=== PATIENT | female | born 1975 | race African-American/Black ===

== ENCOUNTER 2019-04-19 08:43 | Emergency (ER) | payer OTHER, SELFPAY ==
--- NOTE | ~2019-04-19 | CT_ITS ---
EXAMINATION: CT abdomen pelvis w con EXAM DATE: 04/19/2019 10:41 INDICATION: Fever. Epigastric pain. History gastric bypass. TECHNIQUE: Spiral CT of the abdomen and pelvis was performed following intravenous injection of 100 m L Omnipaque 350. Axial, coronal and sagittal images were reviewed. The dose-length product (DLP) fo r this examination was 1536.16 mGy-cm. The exposure was tailored according to patient size (auto mA exposure control), and iterative reconstruction (ASIR) was used as additional dose reduction techniqu e. Comparison is made to prior examination from 10/30/2017. FINDINGS: The liver, spleen, adrenal glands and pancreas are unremarkable. Gallbladder is unremarkab le. No biliary obstruction. Portal and splenic veins are patent. Kidneys enhance symmetrically. T here is no hydronephrosis. There is 4 mm left mid calyceal stone. No ureteral stones suspected. The uterus and ovaries are unremarkable, no adnexal mass. The bladder is unremarkable. There is no retr operitoneal or pelvic lymphadenopathy. Small supraumbilical fat-containing hernia. There are surgical changes consistent with appendectomy. There are surgical changes from intact gas tric bypass surgery. There is mild to moderate sigmoid predominant colonic diverticulosis. There is no adjacent inflammatory change to suggest diverticulitis. No free intraperitoneal gas. The heart is normal in size. There are no pericardial or pleural effusions. The lung bases are unremarkable. There are no osteoblastic or osteolytic lesions identified. IMPRESSION: 1. No acute intra-abdominal findings. 2. Colonic diverticulosis. 3. Small supra umbilical hernia. 4. Left nephrolithiasis. Reviewed, dictated and finalized at location A. [facility]
--- NOTE | ~2019-04-19 | XR_ITS ---
EXAMINATION: XR chest 2V DATE: 04/19/2019 09:02 INDICATION: Cough. Fever. TECHNIQUE: Frontal and lateral views of the chest were obtained. COMPARISON: CT abdomen and pelvis 10/30/2017 FINDINGS: The chest demonstrates clear lungs without pneumonia, pleural effusion, or pneumothorax. Th e heart size is normal. IMPRESSION: 1. No acute cardiopulmonary disease. Reviewed, dictated and finalized at location A. [facility]
[2019-04-19 08:51] VITALS: BP 148/108; PULSE 105; RESP 20; TEMP 37.1; O2SAT 100
--- NOTE | 2019-04-19 08:55 | ED.FEVER ---
HPI - Fever General Chief Complaint: Fever Stated Complaint: headache/stomach pains/achey/fever Time Seen by Provider: 04/19/19 08:53 Source: patient Mode of arrival: ambulatory Limitations: no limitations History of Present Illness HPI Narrative: Pt is a 43 y/o female who presents to the ED with c/o a fever of 101F that started Monday night (2 days ago). Pt reports assocaited [place], sore throat, chills, ABD pain, cough with green phlegm, and nausea. She denies vomiting. Pt took Tylenol at 0715AM. She is not a smoker. MD elicited complaint: fever Onset (ago): day(s) (2) Associated symptoms: chills, sore throat, cough, abdominal pain, nausea and other (sore throat) Treatments prior to arrival fever: acetaminophen Related Data Allergies Allergy/AdvReac Type Severity Reaction Status Date / Time morphine Allergy Unknown Verified 12/15/16 14:40 Review of Systems Review of Systems: All systems reviewed & are unremarkable except as noted in HPI and below Constitutional: Constitutional: Reports chills and Reports fever(s) (101F) ENT: Reports sore throat Respiratory: Respiratory: Reports cough Gastrointestinal: Gastrointestinal: Reports abdominal pain, Reports nausea and Denies vomiting Neurologic: Reports headache(s) [facility] Past Medical History Medical History (Updated 04/19/19 @ 12:51 by Marcial Smith DO) Anemia Asthma Surgical History Surgical History (Updated 04/19/19 @ 10:18 by Basia Sorensen) H/O section H/O gastric bypass Hx of cholecystectomy Family History Family History (Updated 12/15/16 @ 14:42 by DOCTOR UNKNOWN) Father Diabetes mellitus Hypertension Mother Hypertension Family history of elevated blood lipids Other Family history of chronic obstructive pulmonary disease Social History Social History Smoking status: Never smoker Alcohol intake: current Gender identity (if verbalized by the patient): Female Exam Narrative: Exam Narrative: APPEARANCE: No acute distress, nontoxic, resting in bed EYES: EOMI HEENT: Normocephalic, atraumatic, oromucosa dry, no erythema or exudate posterior pharynx RESPIRATORY: No respiratory distress Clear to auscultation bilaterally with no rhonchi wheezing or rales. CARDIOVASCULAR: Regular rate and rhythm without murmurs rubs or gallops. ABDOMINAL: Soft, nontender, nondistended, no rebound or guarding MUSCULOSKELETAl: Moves all extremities. No clubbing, cyanosis or edema. NEURO: Awake and alert. Following commands, speech normal, no focal deficits SKIN:: Warm, dry. No rashes lesions or abrasions PSYCHIATRIC: Normal affect/mood, Course [employer]/PA Physician Supervision Renal records including previous hemoglobin of 7.9 in October 2016. Patient states she is followed by Dr. Fregoso but missed her last appointment. : Discussed with Dr. Fregoso presentation work-up. Patient is known to him from previous anemia. Request patient follow-up as an outpatient Discussed with patient results of workup and diagnosis. Discussed need for follow-up with primary care, proper use of medication, and reasons to return to the emergency department. Patient understands and agrees to current treatment plan Vital Signs Vital signs: Vital Signs Temperature 98.8 F 04/19/19 08:51 Pulse Rate 105 H 04/19/19 08:51 Respiratory Rate 20 04/19/19 08:51 Blood Pressure 148/108 H 04/19/19 08:51 Pulse Oximetry 100 04/19/19 08:51 Temperature 98.8 F 04/19/19 08:51 Pulse Rate 71 04/19/19 12:09 Respiratory Rate 16 04/19/19 12:09 Blood Pressure 126/89 04/19/19 12:09 Pulse Oximetry 100 04/19/19 12:09 MDM - Fever Lab Data Result diagrams: 04/19/19 09:38 04/19/19 09:38 Labs: Lab Results 04/19/19 04/19/19 04/19/19 Range/Units 09:38 09:38 09:54 WBC 6.5 (4.5-10.0) K/mm3 RBC 4.63 (4.2-5.4) M/mm3 Hgb 8.2 L (12.0-15.0) g/dL Hct 31.9 L (37.0-
[2019-04-19 09:45] LABS: Basophils Percent Auto 0.3 % (0.2-1.2); Eosinophils Absolute Auto 0.1 K/mm3 (0-0.3); Eosinophils Percent Auto 1.7 % (0-4.4); Hematocrit 31.9 % (37.0-47.0); Hemoglobin 8.2 g/dL (12.0-15.0); Immature Granulocyte Absolute 0.01 K/mm3 (0.00-0.031); Immature Granulocyte Percent A 0.2 % (0-0.5); Lymphocytes Absolute Auto 1.26 K/mm3 (0.9-3.2); Lymphocytes Percent Auto 19.4 % (18.3-44.2); Mean Corpuscular HGB Conc 25.7 g/dl (32-36); Mean Corpuscular Hemoglobin 17.7 pg (26-34); Mean Corpuscular Volume 68.9 fl (80-100); Mean Platelet Volume 8.8 fl (7.4-10.4); Monocytes Absolute Auto 0.5 K/mm3 (0.1-0.6); Monocytes Percent Auto 7.8 % (2.6-8.5); Neutrophils Absolute Auto 4.6 K/mm3 (1.3-6.7); Neutrophils Percent Auto 70.6 % (45.5-73.1); Platelet Count Result 416 k/mm3 (150-375); Red Blood Count 4.63 M/mm3 (4.2-5.4); Red Cell Distribution Width 18.6 % (11.5-14.5); White Blood Count 6.5 K/mm3 (4.5-10.0)
[2019-04-19 09:51] LABS: Hypochromasia 2+ (NORMAL); Platelet Estimate Increased (Adequate); Stomatocytes 1+ (NORMAL); Target Cells 1+ (NORMAL)
[2019-04-19 09:58] LABS: Alanine Aminotransferase 9 U/L (4-35); Albumin Level 3.5 g/dL (3.5-5.1); Alkaline Phosphatase 77 U/L (38-126); Aspartate Amino Transferase 15 U/L (14-36); Bilirubin,Total 0.2 mg/dL (0.2-1.3); Blood Urea Nitrogen 8 mg/dL (7-17); Calcium 8.3 mg/dL (8.4-10.2); Carbon Dioxide 26 mmol/L (22-30); Chloride 104 mmol/L (98-107); Estimated CRCL calculation 173 ml/min; Estimated Glomerular Filt Rate > 60; Glucose 103 mg/dL (65-105); Potassium 3.7 mmol/L (3.4-5.0); Sodium 140 mmol/L (137-145)
[2019-04-19] MEDS: LACTATED RINGERS 1,000 ML 999 ML IV CONT (10:18)
[2019-04-19 10:23] LABS: Add Urine Microscopic? YES; Appearance Urine Clear (Clear); Bacteria Urine 4+ /hpf; Bilirubin Urine Negative (Negative); Blood Urine Negative (Negative); Color Urine Yellow (Yellow); Glucose Urine UA Negative (Negative); Ketones Urine Negative (Negative); Leukocyte Esterase Ur Trace LEU/UL (Negative); Mucus Urine Few /lpf; Nitrate Urine Positive (Negative); Protein Urine Negative (Negative); Specific Grav Ur 1.023 (1.001-1.035); Squamous Epithelial Cell Urine Many /hpf (Few)
[2019-04-19 11:58] LABS: Lactic Acid Reflex 1.9 mmol/L (0.7-2.1)
--- NOTE | 2019-04-19 12:03 | PC.NURSE ---
Phlebotomy called, once again, to draw second set of blood cultures on patient. Phlebotomy had been called before and they shoaib the lactic and first set of blood cultures and then left the department.
[2019-04-19 12:09] VITALS: BP 126/89; PULSE 71; RESP 16; O2SAT 100
[2019-04-19 14:00] VITALS: BP 132/81; PULSE 74; RESP 15; O2SAT 100
== END 2019-04-19 14:00 | disposition home or self-care (01) ==
PROVIDERS: Emergency Provider Emergency Medicine
DX: N12 Tubulo-interstitial nephritis, not specified as acute or chronic (principal); J45.909 Unspecified asthma, uncomplicated; D64.9 Anemia, unspecified; Z98.84 Bariatric surgery status; K57.90 Diverticulosis of intestine, part unspecified, without perforation or abscess without bleeding; N20.0 Calculus of kidney; K42.9 Umbilical hernia without obstruction or gangrene
CPT/HCPCS: 36415; 71046; 74177; 80053; 81001; 81025; 83605; 85025; 87040; 87077; 87086; 87088; 87186; 87804; 96361; 96365; 99284; J0696; J7120; Q9967

== ENCOUNTER 2021-01-01 06:03 | Inpatient (IN) | payer OTHER, SELFPAY ==
[2021-01-01] VITALS (19 sets, daily range): BP systolic 100–153; BP diastolic 60–109; PULSE 89–122; RESP 12–20; TEMP 36.9–37.8; O2SAT 93–100; BMI 52.3
--- NOTE | ~2021-01-01 | CT_ITS ---
EXAMINATION: CT abdomen pelvis w con DATE: 01/01/2021 07:38 INDICATION: Left lower quadrant abdominal pain. TECHNIQUE: Computed tomography (CT) of the abdomen and pelvis was performed with 100 mL Omnipaque 350 intravenous contrast. Automated exposure control and iterative reconstruction technique were employe d. The dose-length product was 1474.60 mGy-cm. COMPARISON: CT abdomen and pelvis 04/19/2019 FINDINGS: The visualized portions of the lung bases demonstrate mild atelectasis. No pleural effusion . The heart size is normal. No pericardial effusion. The liver, spleen, gallbladder, pancreas, and ad renal glands are normal. There are cysts in the kidneys measuring up to 15 mm on the left. There is a 5 mm stone in left ureter where it crosses the iliac vessels. There is fat stranding around the prox imal left ureter. There is mild left hydronephrosis. There is a heterogeneously decreased left-sided nephrogram. There is diverticulosis of the colon without evidence of diverticulitis. There are change s of gastric bypass procedure. There are changes of appendectomy. There are no dilated loops of bowel . There are no pathologically enlarged lymph nodes. There are 2 supraumbilical ventral hernias contai indu fat. There is no free intraperitoneal fluid. There is mild thoracolumbar spondylosis. IMPRESSION: 1. 5 mm stone in mid left ureter with mild left hydronephrosis. 2. Decreased left-sided nephrogram secondary to obstructive uropathy. Heterogeneity of the nephrogram may be secondary to pyelonephritis or chronic kidney disease. 3. Supraumbilical ventral hernias containing fat. Reviewed, dictated and finalized at location A. IMPRESSION: 1. 5 mm stone in mid left ureter with mild left hydronephrosis. 2. Decreased left-sided nephrogram secondary to obstructive uropathy. Heterogen eity of the nephrogram may be secondary to pyelonephritis or chronic kidney dis ease. 3. Supraumbilical ventral hernias containing fat.
--- NOTE | ~2021-01-01 | XR_ITS ---
EXAMINATION: XR stent kub - surgery DATE: 01/01/2021 15:04 INDICATION: Left ureteral stone extraction and stent placement TECHNIQUE: 4 fluoroscopic images of the abdomen and pelvis were obtained during procedure performed la [place]. Radiologist was not present for the imaging or procedure. The amount of fluoroscopy gloria e used during this procedure was 0.5 minutes. COMPARISON: CT dated 01/01/2021 FINDINGS: The distal left ureteral stone seen on CT is not definitively visualized on the surgeon assistant images potentia lly obscured by the sacrum. There is some excreted contrast in the bladder from the prior contrast en hanced CT. Final images demonstrate placement of a left internal ureteral stent with loops formed at the left renal pelvis and in the bladder. IMPRESSION: 1. Left internal ureteral stent in expected position post reported left ureteral stone extraction. Co rrelate with procedure note for further detail. Reviewed, dictated and finalized at location A. IMPRESSION: 1. Left internal ureteral stent in expected position post reported left uretera l stone extraction. Correlate with procedure note for further detail.
[2021-01-01 06:40] LABS: Basophils Percent Auto 0.2 % (0.2-1.2); Eosinophils Percent Auto 0.2 % (0-4.4); Hematocrit 33.1 % (37.0-47.0); Hemoglobin 9.2 g/dL (12.0-15.0); Immature Granulocyte Absolute 0.09 K/mm3 (0.00-0.031); Immature Granulocyte Percent A 0.5 % (0-0.5); Lymphocytes Absolute Auto 0.67 K/mm3 (0.9-3.2); Lymphocytes Percent Auto 3.5 % (18.3-44.2); Mean Corpuscular HGB Conc 27.8 g/dl (32-36); Mean Corpuscular Hemoglobin 19.4 pg (26-34); Mean Corpuscular Volume 69.8 fl (80-100); Monocytes Absolute Auto 0.4 K/mm3 (0.1-0.6); Monocytes Percent Auto 1.8 % (2.6-8.5); Neutrophils Absolute Auto 18.2 K/mm3 (1.3-6.7); Neutrophils Percent Auto 93.8 % (45.5-73.1); Platelet Count Result 378 k/mm3 (150-375); Red Blood Count 4.74 M/mm3 (4.2-5.4); Red Cell Distribution Width 17.6 % (11.5-14.5); White Blood Count 19.4 K/mm3 (4.5-10.0)
[2021-01-01 06:59] LABS: Anisocytosis 1+ (NORMAL); Hypochromasia 1+ (NORMAL); Platelet Estimate Adequate (Adequate); Target Cells 1+ (NORMAL)
[2021-01-01 07:00] LABS: Ovalocytes 1+ (NORMAL); Stomatocytes 1+ (NORMAL)
[2021-01-01 07:05] LABS: Add Urine Microscopic? YES; Appearance Urine Cloudy (Clear); Bacteria Urine Trace /hpf; Bilirubin Urine Negative (Negative); Blood Urine 3+ (Negative); Color Urine Yellow (Yellow); Glucose Urine UA Negative (Negative); Ketones Urine Negative (Negative); Leukocyte Esterase Ur 2+ LEU/UL (Negative); Mucus Urine Few /lpf; Nitrate Urine Positive (Negative); Protein Urine 2+ mg/dL (Negative); RBC Urine >75 /hpf (0-2); Specific Grav Ur 1.019 (1.001-1.035); Squamous Epithelial Cell Urine Many /hpf (Few); WBC Urine 21-30 /hpf
--- NOTE | 2021-01-01 07:12 | ED.ABDPAIN ---
HPI - Abdominal Pain General Chief Complaint: Abdominal Pain Stated Complaint: lower back pain, abdominal pain, headache x 1 day Time Seen by Provider: 01/01/21 07:04 Source: patient and RN notes reviewed Mode of arrival: ambulatory Limitations: no limitations History of Present Illness HPI narrative: This is a 45 year old female who presents for evaluation of left lower abdominal pain. She developed pain yesterday. Her pain is located in left lower abdomen and it radiates to her lower back. She has associated nausea but denies vomiting, fever, or diarrhea. She took ibuprofen last night and she reports she had some relief. She denies dysuria or hematuria. She has never had similar pain in the past. She rates pain as 8/10 currently. Related Data Home Medications Medication Instructions Recorded Confirmed No Home Medications 01/01/21 01/01/21 Allergies Allergy/AdvReac Type Severity Reaction Status Date / Time morphine Allergy Unknown Itching Verified 01/01/21 06:20 Review of Systems Review of Systems: All systems reviewed & are unremarkable except as noted in HPI and below PMFSH Past Medical History Medical History (Updated 01/01/21 @ 18:22 by Jewell Grimaldo MD) Anemia Asthma Morbid obesity Surgical History Surgical History H/O section H/O gastric bypass Hx of appendectomy Hx of cholecystectomy Family History Family History Father Diabetes mellitus Hypertension Mother Hypertension Family history of elevated blood lipids Other Family history of chronic obstructive pulmonary disease Social History Social History (Updated 01/01/21 @ 17:56 by Linh Muniz NP) Social History: The patient is a lifelong nonsmoker. She lives with the 1 child that she has. She only has the 1 child. The patient does not have a durable power respiratory therapy assistant for healthcare. The patient works for for the [employer]. She denies any marijuana, alcohol, or illicit drugs. She is a lifelong nonsmoker. Code status full code Smoking status: Never smoker Second hand tobacco smoke exposure: No Alcohol intake: never Substance use: never Gender identity (if verbalized by the patient): Female Spiritual care concerns: No Exam Const: General: no acute distress and alert Nutritional Appearance: obese Orientation/consciousness: patient oriented x3 Eyes: EOM: EOMs intact bilaterally Resp: Effort & Inspection: normal respiratory effort and no retractions Auscultation: clear to auscultation bilaterally Cardio: Rate: tachycardic Rhythm: regular rhythm Heart sounds: no murmurs GI: GI Palp: Yes Soft to palpation, Yes Tenderness to palpation present (GI) and No Guarding due to palpation present (GI) Auscultation: normal bowel sounds : General: Yes no CVA tenderness Back/Spine/Pelvis: Back: no CVA tenderness Skin: General skin exam: normal color Rashes: no rashes Neuro: General: patient oriented x3, moves all extremities and CN's II-XI intact bilaterally Extrem: General: normal to inspection Psych: Mental Status: mental status grossly normal Affect: normal affect Course Reevaluation(s) Reevaluation #1: PAtient understands she will be admitted for treatment of her obstructing stone with UTI, sepsis. Date: 01/01/21 Time: 09:15 Consultations Consultation #1: Dr. Falcon with consult in regards to her kidney stone. Date: 01/01/21 Time: 09:15 Vital Signs Vital signs: Vital Signs Temperature 98.7 F 01/01/21 06:11 Pulse Rate 106 H 01/01/21 06:11 Respiratory Rate 20 01/01/21 06:11 Blood Pressure 153/109 H 01/01/21 06:11 Pulse Oximetry 100 01/01/21 06:11 Temperature 99.1 F 01/01/21 15:09 Pulse Rate 106 H 01/01/21 16:20 Respiratory Rate 18 01/01/21 16:20 Blood Pressure 129/83 01/01/21 16:20 Pulse Oximetry 94
[2021-01-01 07:19] LABS: Alanine Aminotransferase 11 U/L (4-35); Albumin Level 3.9 g/dL (3.5-5.1); Alkaline Phosphatase 85 U/L (38-126); Anion Gap 5 mmol/L (8-16); Aspartate Amino Transferase 22 U/L (14-36); Bilirubin,Total 0.8 mg/dL (0.2-1.3); Blood Urea Nitrogen 10 mg/dL (7-17); Calcium 8.8 mg/dL (8.4-10.2); Carbon Dioxide 24 mmol/L (22-30); Chloride 107 mmol/L (98-107); Estimated CRCL calculation 167 ml/min; Estimated Glomerular Filt Rate > 60; Glucose 120 mg/dL (65-110); Lipase 19 U/L (23-300); Sodium 136 mmol/L (137-145)
--- NOTE | 2021-01-01 07:28 | PC.NURSE ---
Pt states she is experiencing 8/10 abd.pain, slightly nauseated and denies vomiting and diarrhea, pt is currently going to CT scan
[2021-01-01] MEDS: ONDANSETRON INJ 4 MG/2 ML VIAL IV PUSH ×2 (07:46→17:34)
[2021-01-01] MEDS: LACTATED RINGERS 1,000 ML 999 ML IV CONT (07:47)
[2021-01-01] MEDS: HYDROmorphone HCL INJ (*CRX) 1 MG/ML SYR 0.5 MG IV PUSH ×2 (08:12→20:16)
[2021-01-01 08:14] LABS: Lactic Acid Reflex 1.1 mmol/L (0.7-2.1)
--- NOTE | 2021-01-01 09:16 | PC.NURSE ---
Dr. Falcon at bedside.
--- NOTE | 2021-01-01 09:22 | WPDURCON ---
Assessment and Plan Assessment and plan (1) Urinary tract infection: Code(s): N39.0 - Urinary tract infection, site not specified Status: Acute (2) Left ureteral stone: Code(s): N20.1 - Calculus of ureter Status: Acute Assessment and Plan: Obstructing 5mm left mid-ureteral stone with probable UTI. Cysto/left stent with possible ureteral stone extraction (if accessible). Urology Consult Note HPI Date Seen: 01/01/21 Primary Care Provider: Ольга Cade, Consult Narrative Narrative: Alisa Kiran is a 45 year old female, without history of urolithiases (but one prior episode of pyelonephritis ~18months ago), presents to ER with 24-hours progressively intense left flank pain radiating to LLQ. She reports nausea but no vomiting and denies fever/chills or gross hematuria. Imaging reveals 5mm obstructing left mid-ureteral stone. Review of Systems Cardiovascular: Cardiovascular: Denies chest pain, Denies lightheadedness, Denies palpitations and Denies dyspnea Respiratory: Respiratory: Denies dyspnea Gastrointestinal: Gastrointestinal: Denies diarrhea, Denies nausea and Denies vomiting Genitourinary: Genitourinary: Denies hematuria and Denies dysuria Endocrine: Endocrine: Denies palpitations PMFSH Past Medical History Medical History Anemia Asthma Surgical History Surgical History H/O section H/O gastric bypass Hx of appendectomy Hx of cholecystectomy Family History Family History Father Diabetes mellitus Hypertension Mother Hypertension Family history of elevated blood lipids Other Family history of chronic obstructive pulmonary disease Social History Social History Smoking status: Never smoker Alcohol intake: current Gender identity (if verbalized by the patient): Female Meds Home Medications and Allergies Home Medications Medication Instructions Recorded Confirmed Type ondansetron 4 mg PO Q6H PRN #10 tablet 04/19/19 Rx sulfamethoxazole-trimethoprim 1 tablet PO Q12H #20 tablet 04/19/19 Rx [Bactrim DS] Allergies Allergy/AdvReac Type Severity Reaction Status Date / Time morphine Allergy Unknown Itching Verified 01/01/21 06:20 hydromorphone [From Dilaudid] Allergy Drowsy Verified 01/01/21 06:22 Vital Signs Vital Signs - 24 hr 01/01/21 06:11 01/01/21 09:13 Temperature 98.7 F 98.5 F Pulse Rate 106 H Respiratory Rate 20 Blood Pressure 153/109 H Pulse Oximetry 100 Exam Const: General: no acute distress Resp: Effort & Inspection: normal respiratory effort GI: Inspection: non-distended GI Palp: No abdominal tenderness and No Guarding due to palpation present (GI) Auscultation: normal bowel sounds Results Labs CBC & Chem 7: 01/01/21 06:33 01/01/21 07:00 Labs: Short CBC 01/01/21 Range/Units 06:33 WBC 19.4 H (4.5-10.0) K/mm3 Hgb 9.2 L (12.0-15.0) g/dL Hct 33.1 L (37.0-47.0) % Plt Count 378 H (150-375) k/mm3 BMP 01/01/21 07:00 Sodium 136 L Potassium 4.0 Chloride 107 Carbon Dioxide 24 BUN 10 Creatinine 0.50 L Glucose 120 H Calcium 8.8 Liver Function 01/01/21 Range/Units 07:00 Total Bilirubin 0.8 (0.2-1.3) mg/dL AST 22 (14-36) U/L ALT 11 (4-35) U/L Alkaline Phosphatase 85 (38-126) U/L Albumin 3.9 (3.5-5.1) g/dL Urine 01/01/21 Range/Units 06:53 Urine Color Yellow (Yellow) Urine Appearance Cloudy H (Clear) Urine pH 6.0 (5.0-9.0) Ur Specific [place] 1.019 (1.001-1.035) Urine Protein 2+ H (Negative) mg/dL Urine Glucose (UA) Negative (Negative) mg/dL
--- NOTE | 2021-01-01 09:29 | PC.NURSE ---
Doctor requested blood cultures to be drawn, slabbing machine operator aware, pt informed of blood cultures and agrees to allow attempt to get blood cultures
--- NOTE | 2021-01-01 09:30 | WPDHPUPDATE1 ---
History and Physical Update Update Date/Time: 01/01/21 09:30 History and Physical has been reviewed, including an updated exam of the patient. There are NO changes in the patient's condition. Risks, benefits, and alternatives have been discussed and questions answered. Patient agrees to proceed with procedure.
[2021-01-01] MEDS: SODIUM CHLORIDE 0.9% IV 1,000 ML 125 ML IV CONT (10:00)
--- NOTE | 2021-01-01 10:50 | PC.NURSE ---
Called report to med/manager surgery, informed her that i contacted pharmacy for Rocephin has not received, no further questions or concerns
--- NOTE | 2021-01-01 11:11 | PC.NURSE ---
Pt transported with fluids running
[2021-01-01] MEDS: LACTATED RINGERS 1,000 ML 30 ML IV CONT (12:35)
--- NOTE | 2021-01-01 12:43 | ADMGEN ---
This patient, Alisa Kiran, was admitted to [facility] Surg Room 316-02 at 1120. Patient/family oriented to hospital policies and general routines including ID bracelet, bed and alarms, visiting hours, pain management, procedures, bathroom and other care routines, personal items, smoking policy, room service/diet, and visiting hours. Information on how to activate the Rapid Response Team has been discussed. Patient/Family are encouraged to report perceived risks to care and to ask questions if they do not understand what they are told or what they should do.
--- NOTE | 2021-01-01 12:44 | PC.NURSE ---
pt taken to OR via stretcher at 1230.
--- NOTE | 2021-01-01 13:52 | WPDANESEPPF ---
Anes - Initial Pre Proc Eval Procedure: Operation Date: 01/01/21 14:00 Proposed Procedures p Cystoscopy, Left Stent Placement, Possible Stone Extraction - Rufino Falcon MD Date/Time: 01/01/21 13:52 Surgeon: Valdo Alberts MD Pre Op Diagnosis: Sepsis UTI, Obstructing Ureter Calculus Patient Data Age: 45 Gender: F Height: 1.65 m Weight: 142.6 kg Last Vital Signs Temp 37.3 C 01/01/21 12:55 Pulse 102 H 01/01/21 12:55 Resp 18 01/01/21 12:55 BP 104/67 01/01/21 12:55 Pulse Ox 100 01/01/21 12:55 Allergies Allergy/AdvReac Type Severity Reaction Status Date / Time morphine Allergy Unknown Itching Verified 01/01/21 06:20 Home Medications Medication Instructions Recorded Confirmed Type No Home Medications 01/01/21 01/01/21 History Laboratory Tests 01/01/21 01/01/21 01/01/21 06:33 06:53 07:00 WBC 19.4 K/mm3 H K/mm3 (4.5-10.0) RBC 4.74 M/mm3 M/mm3 (4.2-5.4) Hgb 9.2 g/dL L g/dL (12.0-15.0) Hct 33.1 % L % (37.0-47.0) MCV 69.8 fl L fl (80-100) MCH 19.4 pg L pg (26-34) MCHC 27.8 g/dl L g/dl (32-36) RDW 17.6 % H % (11.5-14.5) Plt Count 378 k/mm3 H k/mm3 (150-375) MPV 9.0 fl fl (7.4-10.4) Immature Gran % (Auto) 0.5 % % (0-0.5) Neut % (Auto) 93.8 % H % (45.5-73.1) Lymph % (Auto) 3.5 % L % (18.3-44.2) [place] % (Auto) 1.8 % L % (2.6-8.5) Eos % (Auto) 0.2 % % (0-4.4) Baso % (Auto) 0.2 % % (0.2-1.2) Lymph # (Auto) 0.67 K/mm3 L K/mm3 (0.9-3.2) [place] # (Auto) 0.4 K/mm3 K/mm3 (0.1-0.6) Eos # (Auto) 0.0 K/mm3 K/mm3 (0-0.3) Baso # (Auto) 0.0 K/mm3 K/mm3 (0.0-0.1) Abs Immat Gran (auto) 0.09 K/mm3 H K/mm3 (0.00-0.031) Absolute Neuts (auto) 18.2 K/mm3 H K/mm3 (1.3-6.7) Absolute Nucleated RBC 0.0 K/mm3 K/mm3 (0.0-0.012) Nucleated RBC % 0.0 % % (0.0-0.2) Platelet Estimate Adequate (Adequate) Hypochromasia 1+ (NORMAL) Anisocytosis 1+ (NORMAL) Target Cells 1+ (NORMAL) Ovalocytes 1+ (NORMAL) Stomatocytes 1+ (NORMAL) Sodium 136 mmol/L L mmol/L (137-145) Potassium 4.0 mmol/L mmol/L (3.4-5.0) Chloride 107 mmol/L mmol/L (98-107) Carbon Dioxide 24 mmol/L mmol/L (22-30) Anion Gap 5 mmol/L L mmol/L (8-16) BUN 10 mg/dL mg/dL (7-17) Creatinine 0.50 mg/dL L mg/dL (0.7-1.0) Estim Creat Clear Calc 167 ml/min ml/min Estimated GFR > 60 (59 - ) Glucose 120 mg/dL H mg/dL (65-110) Lactic Acid Calcium 8.8 mg/dL mg/dL (8.4-10.2) Total Bilirubin 0.8 mg/dL mg/dL (0.2-1.3) AST 22 U/L U/L (14-36) ALT 11 U/L U/L (4-35) Alkaline Phosphatase 85 U/L U/L (38-126) Total Protein 8.0 g/dL g/dL (6.3-8.2) Albumin 3.9 g/dL g/dL (3.5-5.1) Lipase 19 U/L L U/L (23-300) Urine Color Yellow (Yellow) Urine Appearance Cloudy H (Clear) Urine pH 6.0 (5.0-9.0) Ur Specific [place] 1.019 (1.001-1.035) Urine Protein 2+ mg/dL H mg/dL (Negative) Urine Glucose (UA) Negative mg/dL mg/dL (Negative) Urine Ketones Negative mg/dL mg/dL (Negative) Ur Blood (Man) 3+ H (Negative) Urine Nitrate Positive H (Negative) Urine Bilirubin Negative (Negative) Urine Urobilinogen 2.0 mg/dL H mg/dL (<2.0) Leukocyte Esterase Rfl 2+ ANDREW/UL H ANDREW/UL (Negative) Urine RBC >75 /hpf H /hpf (0-2) Urine WBC 21-30 /hpf H /hpf Ur Squamous Epith Cells Many /hpf H /hpf (Few) Urine Bacteria Trace /hpf /hpf Urine Mu
--- NOTE | 2021-01-01 14:59 | W.PM.PROC2 ---
Procedure Note - Detailed Date of Procedure 01/01/21 Pre-op Diagnosis Sepsis UTI, Obstructing Ureter Calculus Post-op Diagnosis same Procedure Performed Cystoscopy, left ureteroscopy with stone extraction, left ureteral stent placement Surgeon Rufino Falcon MD Anesthesia general Description of Procedure The patient was brought to the operative suite where she is prepped and draped in a routine sterile fashion while in the dorsal lithotomy position after the uneventful induction of a general LMA anesthetic. A 19F rigid cystoscope was placed in the bladder. The patient had no evidence of urethral stricture or bladder neck contracture. The bladder mucosa was endoscopically normal without hyperemia or neoplasm. There was a single, orthotopic ureteral orifice bilaterally. A 0.035 glidewire was advanced into the left renal pelvis under fluoroscopy. The distal ureter was dilated with an 8F/10F ureteral dilator. Ureteroscopy was undertaken with a short tapered semi-rigid ureteroscope. With ureteroscopy I was able to extract the stone using a 1.9F Escape, disposable stone basket. Due to the extent of this manipulation and her apparent infection, I did place a 4.8F double-J ureteral stent. The proximal coil of the stent was confirmed to be in the renal pelvis and the distal coil in the bladder. The patient's bladder was emptied and she was taken to the recovery room having tolerated this procedure well. Estimated Blood Loss 0 Drains Yes Packing No Pathology yes Complications No immediate complications Condition stable Disposition PACU
[2021-01-01] MEDS: LIDOCAINE HCL 2% GEL UROJET 10 ML PKG MUCOUS MEM (15:00)
[2021-01-01] MEDS: fentaNYL CITRATE INJ (*CRX) 100 MCG/2 ML VIAL 25 MCG IV PUSH ×4 (15:55→16:22)
--- NOTE | 2021-01-01 16:52 | PC.NURSE ---
pt back to room via stretcher from OR at 1650.
--- NOTE | 2021-01-01 17:49 | PM.IMHP ---
H&P: HPI History of Present Illness Date/Time: 01/01/21 17:49 this is a 45-year-old female patient who has no prior history of any kidney stones. The patient came to the emergency room to be evaluated for left lower abdominal pain. This pain developed yesterday. Use located the left lower abdomen radiate to her left lower back. Patient did not have any vomiting but did have some nausea. She took ibuprofen last night and stated she had some relief. She denies any dysuria or hematuria. She was rating her pain 8/10. Her white count was noted to be 19.4. H&H is 9.2 and 33.1. Patient was positive for UTI. The patient was started on IV fluids and ceftriaxone. Abdominal CT was read as the following 1. 5 mm stone in mid left ureter with mild left hydronephrosis. 2. Decreased left-sided nephrogram secondary to obstructive uropathy. Heterogeneity of the nephrogram may be secondary to pyelonephritis or chronic kidney disease. 3. Supraumbilical ventral hernias containing fat. Urology has been consulted. The patient had a cystoscopy left ureteroscopy with stone extraction, left ureteral stent placement by Dr. Falcon. Postoperatively the patient was complaining of nausea. The patient is complaining of chills as well. The patient is being admitted to inpatient status on the date of service of 01/01/2021. Chief Complaint: Abdominal pain Review of Systems Review of Systems: All systems reviewed & are unremarkable except as noted in HPI and below Constitutional: Constitutional: Reports as per HPI and Reports no additional constitutional complaints Eyes: Eyes: Reports as per HPI and Reports no additional eye complaints ENT: Reports system reviewed and no additional complaints, except as documented and Reports Normal hearing present Cardiovascular: Cardiovascular: Reports no additional cardiovascular complaints Respiratory: Respiratory: Reports no additional respiratory complaints and Reports no additional respiratory complaints Gastrointestinal: Gastrointestinal: Reports as per HPI and Reports no additional gastrointestinal complaints Musculoskeletal: Musculoskeletal: Reports no additional musculoskeletal complaints Integumentary/Breasts: Skin/Breast: Reports system reviewed and no additional complaints, except as docu and Reports as per HPI Neurologic: Reports system reviewed and no additional complaints, except as documented, Reports as per HPI and Reports Normal hearing present Psychiatric: Psychiatric: Reports no additional psychiatric complaints and Reports as per HPI Endocrine: Endocrine: Reports no additional endocrine complaints Hematologic/Lymphatic: Hematologic/Lymphatic: Reports no additional hematologic/lymphatic complaints Allergic/Immunologic: Allergic/Immunologic: Reports no additional allergic/immunologic complaints PMFSH Past Medical History Medical History (Updated 01/01/21 @ 17:55 by Linh Muniz NP) Anemia Asthma Morbid obesity Surgical History Surgical History H/O section H/O gastric bypass Hx of appendectomy Hx of cholecystectomy Family History Family History Father Diabetes mellitus Hypertension Mother Hypertension Family history of elevated blood lipids Other Family history of chronic obstructive pulmonary disease Social History Social History (Updated 01/01/21 @ 17:56 by Linh Muniz NP) Social History: The patient is a lifelong nonsmoker. She lives with the 1 child that she has. She only has the 1 child. The patient does not have a durable power workers compensation attorney for healthcare. The patient works for for the [employer]. She denies any marijuana, alcohol, or illicit drugs. She is a lifelong nonsmoker. Code status full code Smoking status: Never smoker Second hand tobacco smoke exposure: No Alcohol intake: never Substance use: never Gender i
[2021-01-02] VITALS (7 sets, daily range): BP systolic 104–147; BP diastolic 60–75; PULSE 96–117; RESP 16–18; TEMP 36.6–37.9; O2SAT 92–96
[2021-01-02] MEDS: HYDROmorphone HCL INJ (*CRX) 1 MG/ML SYR 0.5 MG IV PUSH ×3 (00:38→11:24)
[2021-01-02] MEDS: SODIUM CHLORIDE 0.9% IV 1,000 ML 125 ML IV CONT ×3 (00:39→23:21)
[2021-01-02 06:33] LABS: Basophils Percent Auto 0.2 % (0.2-1.2); Eosinophils Percent Auto 0.2 % (0-4.4); Hematocrit 29.9 % (37.0-47.0); Hemoglobin 8.4 g/dL (12.0-15.0); Immature Granulocyte Absolute 0.05 K/mm3 (0.00-0.031); Immature Granulocyte Percent A 0.4 % (0-0.5); Lymphocytes Absolute Auto 0.54 K/mm3 (0.9-3.2); Lymphocytes Percent Auto 4.4 % (18.3-44.2); Mean Corpuscular HGB Conc 28.1 g/dl (32-36); Mean Corpuscular Hemoglobin 19.6 pg (26-34); Mean Corpuscular Volume 69.9 fl (80-100); Mean Platelet Volume 9.7 fl (7.4-10.4); Monocytes Absolute Auto 0.9 K/mm3 (0.1-0.6); Monocytes Percent Auto 6.9 % (2.6-8.5); Neutrophils Absolute Auto 10.8 K/mm3 (1.3-6.7); Neutrophils Percent Auto 87.9 % (45.5-73.1); Platelet Count Result 297 k/mm3 (150-375); Red Blood Count 4.28 M/mm3 (4.2-5.4); Red Cell Distribution Width 17.7 % (11.5-14.5); White Blood Count 12.3 K/mm3 (4.5-10.0)
[2021-01-02 06:45] LABS: Magnesium 1.5 mg/dL (1.6-2.3)
[2021-01-02 07:03] LABS: Alanine Aminotransferase 11 U/L (4-35); Albumin Level 3.4 g/dL (3.5-5.1); Alkaline Phosphatase 92 U/L (38-126); Anion Gap 7 mmol/L (8-16); Aspartate Amino Transferase 16 U/L (14-36); Bilirubin,Total 0.5 mg/dL (0.2-1.3); Blood Urea Nitrogen 8 mg/dL (7-17); Calcium 8.4 mg/dL (8.4-10.2); Carbon Dioxide 25 mmol/L (22-30); Chloride 105 mmol/L (98-107); Estimated CRCL calculation 143 ml/min; Estimated Glomerular Filt Rate > 60; Glucose 116 mg/dL (65-110); Lactic Acid Reflex 1.1 mmol/L (0.7-2.1); Potassium 3.7 mmol/L (3.4-5.0); Sodium 137 mmol/L (137-145)
--- NOTE | 2021-01-02 09:53 | PM.IMPN ---
Progress Note: A&P Assessment and Plan (1) Left ureteral stone: Code(s): N20.1 - Calculus of ureter Status: Acute Assessment and Plan: Status post cystoscopy, retrograde pyelogram and stent placement. Supportive care Follow urology recommendations (2) Urinary tract infection: Code(s): N39.0 - Urinary tract infection, site not specified Status: Acute Assessment and Plan: Continue with ceftriaxone. Urine and blood cultures are pending. Continue to monitor (3) Asthma: Code(s): J45.909 - Unspecified asthma, uncomplicated Status: Chronic Assessment and Plan: P.r.n. albuterol inhaler. Not wheezing on exam Continue to monitor (4) Anemia: Code(s): D64.9 - Anemia, unspecified Status: Chronic Assessment and Plan: Appears to be chronic. Continue to monitor. Subjective Date/time seen: 01/02/21 09:53 Having a throbbing headache and left flank pain. Review of Systems Review of Systems: All systems reviewed & are unremarkable except as noted in HPI and below Constitutional: Constitutional: Reports as per HPI and Reports no additional constitutional complaints Eyes: Eyes: Reports as per HPI and Reports no additional eye complaints ENT: Reports system reviewed and no additional complaints, except as documented and Reports Normal hearing present Cardiovascular: Cardiovascular: Reports no additional cardiovascular complaints Respiratory: Respiratory: Reports no additional respiratory complaints and Reports no additional respiratory complaints Gastrointestinal: Gastrointestinal: Reports as per HPI and Reports no additional gastrointestinal complaints Musculoskeletal: Musculoskeletal: Reports no additional musculoskeletal complaints Integumentary/Breasts: Skin/Breast: Reports system reviewed and no additional complaints, except as docu and Reports as per HPI Neurologic: Reports system reviewed and no additional complaints, except as documented, Reports as per HPI and Reports Normal hearing present Psychiatric: Psychiatric: Reports no additional psychiatric complaints and Reports as per HPI Endocrine: Endocrine: Reports no additional endocrine complaints Hematologic/Lymphatic: Hematologic/Lymphatic: Reports no additional hematologic/lymphatic complaints Allergic/Immunologic: Allergic/Immunologic: Reports no additional allergic/immunologic complaints Exam Narrative: Patient is laying in bed Const: General: cooperative, comfortable, no acute distress, well developed, alert, awake and ill appearing acutely Nutritional Appearance: obese morbidly obese Orientation/consciousness: patient oriented x3 HENMT: Head: normal to inspection, normocephalic and atraumatic Ears: hearing grossly normal bilaterally Face and sinus: normal facial exam Eyes: General: appearance normal, both eyes and all related structures Pupils: Equal, round and reactive pupils present EOM: EOMs intact bilaterally Neck: Neck: full ROM, no lymphadenopathy and no JVD Thyroid: thyroid normal Lymphatic: no lymphadenopathy noted Resp: Effort & Inspection: normal respiratory effort and able to speak in complete sentences Auscultation: clear to auscultation bilaterally Cardio: Jugular venous distension: no JVD Rate: regular rate Rhythm: regular rhythm Heart sounds: S1 normal heart sound present and S2 normal heart sound present GI: GI Palp: Yes Soft to palpation and Yes No hepatosplenomegaly present : General: Yes deferred Skin: Rashes: no rashes Wounds: no wounds Neuro: General: patient oriented x3 and CN's II-XI intact bilaterally Cranial nerves: Yes CN's II-XII intact bilaterally and Yes Equal, round and reactive pupils present Cognition (Neuro): normal cognition Speech: normal speech Gait exam (Neuro): Normal gait present Motor exam (neuro): 5/5 motor strength present throughout Extrem: General: normal to inspection, full ROM, no joint enlargement and no pedal e
--- NOTE | 2021-01-02 12:53 | WPDUROPN2 ---
Progress Note: A&P Assessment and Plan (1) Pyelonephritis: Code(s): N12 - Tubulo-interstitial nephritis, not specified as acute or chronic Status: Acute (2) Hydronephrosis with urinary obstruction due to ureteral calculus: Code(s): N13.2 - Hydronephrosis with renal and ureteral calculous obstruction Status: Acute (3) Left ureteral stone: Code(s): N20.1 - Calculus of ureter Status: Acute Assessment and Plan: POD#1 s/p left ureteroscopy with stone extraction and left stent - wbc ct improving - added percocet for stent pain - awaiting blood and urine cx results; continue IV abx for now - anticipate discharge tomorrow on PO abx - will need stent removal with Parres in 1 wk Subjective Subjective Date/Time Seen: 01/02/21 12:53 Doing pretty well. Tolerating reg diet. Low grade fever yesterday. Having some stent pain. Intermittently having headaches Review of Systems Review of Systems: All systems reviewed & are unremarkable except as noted in HPI and below (all systems are neg other than as per HPI) Exam Const: General: cooperative, healthy appearing, comfortable and no acute distress Orientation/consciousness: patient oriented x3 Chest: Chest palpation & inspection: normal inspection of the chest GI: Inspection: normal to inspection GI Palp: No abdominal tenderness Neuro: General: patient oriented x3 Objective Data Vital Signs Vital Signs: Vital Signs - 24 hr 01/01/21 12:55 01/01/21 15:09 01/01/21 15:20 Temperature 37.3 C 37.3 C Pulse Rate 102 H 104 H 106 H Respiratory Rate 18 18 20 Blood Pressure 104/67 117/81 123/85 Pulse Oximetry 100 100 100 01/01/21 15:30 01/01/21 15:35 01/01/21 15:50 Temperature Pulse Rate 102 H 106 H 105 H Respiratory Rate 20 20 20 Blood Pressure 131/84 125/86 128/86 Pulse Oximetry 100 96 93 01/01/21 16:05 01/01/21 16:20 01/01/21 16:55 Temperature 37.3 C Pulse Rate 108 H 106 H 99 Respiratory Rate 20 18 14 Blood Pressure 119/77 129/83 137/63 Pulse Oximetry 93 94 100 01/01/21 17:10 01/01/21 17:40 01/01/21 18:40 Temperature 37.2 C 37.2 C 37.1 C Pulse Rate 97 99 89 Respiratory Rate 14 12 14 Blood Pressure 129/68 133/65 141/75 H Pulse Oximetry 99 100 100 01/01/21 20:00 01/01/21 21:22 01/02/21 00:00 Temperature 37.7 C H 37.8 C H 36.6 C Pulse Rate 122 H 96 Respiratory Rate 16 18 Blood Pressure 100/74 104/60 Pulse Oximetry 95 95 01/02/21 04:00 01/02/21 07:59 01/02/21 10:40 Temperature 37.4 C 37.3 C 36.6 C Pulse Rate 109 H 112 H 100 Respiratory Rate 18 16 17 Blood Pressure 130/67 119/65 125/71 Pulse Oximetry 96 94 95 Intake/Output Intake/Output: Intake & Output 12/30/20 12/31/20 01/01/21 01/02/21 23:59 23:59 23:59 23:59 Intake Total 2900 610 Balance 2900 610 Meds/Results Medications: Active Medications Generic Name Dose Route Start Last Admin Trade Name Freq PRN Reason Stop Dose Admin Albuterol 2 puff 01/01/21 18:00 Albuterol Sulfate (*Sp) Aerosol 1 Puff INHALATION Q6HRT PRN Shortness Of Breath Hydromorphone HCl 0.5 mg 01/01/21 09:33 01/02/21 11:24 Hydromorphone Hcl Inj (*Crx) 1 Mg/Ml Syr IV PUSH 0.5 mg Q4H PRN Administration Pain Rated 7-10 Sodium Chloride 1,000 mls @ 125 mls/hr 01/01/21 09:35 01/02/21 00:39 Normal Saline Iv IV CONT 125 mls/hr .Q8H MAYANK Administration Ceftriaxone Sodium/Dextrose 1 gm in 50 mls @ 100 mls/hr 01/02/21 09:00 01/02/21 09:04 Rocephin 1 Gm/D5w 50 Ml IVPB Infused Q24H MAYANK Infusion Ondansetron HCl 4 mg 01/01/21 09:33 01/01/21 17:34 Ondansetron Inj 4 Mg/2 Ml Vial IV PUSH 4 mg Q4H PRN Administration Nausea Oxycodone/Acetaminophen 1 tablet 01/02/21 12:52 Oxycodone/Acetaminophen (*Crx) 5-325 Mg Tablet PO Q4H PRN Pain Rated 4-6 Radiology Results: ITS Impressions Abdomen/Pelvis CT 01/01/21 07:38 IMPRESSION: 1. 5 mm stone in mid left ureter with mild left hydr
[2021-01-02] MEDS: oxyCODONE/ACETAMINOPHEN (*CRX) 5-325 MG TABLET 1 TABLET PO ×2 (14:55→20:38)
--- NOTE | 2021-01-02 15:03 | P.PNAN_ITS ---
Anes - Prog Note Post-Op Date/Time: 01/02/21 15:03 Cardiovascular status: normal Respiratory status: normal Airway patency: baseline Mental status: baseline Post-Op hydration status: normal Vital Signs: Last Vital Signs Temp 36.6 C 01/02/21 10:40 Pulse 100 01/02/21 10:40 Resp 17 01/02/21 10:40 BP 125/71 01/02/21 10:40 Pulse Ox 95 01/02/21 10:40 Pain Score (VAS): 0 I/O: Intake & Output 01/01/21 01/02/21 01/02/21 23:59 07:59 15:59 Intake Total 7120 411 2984 Balance 2054 302 4715 Laboratory Tests 01/02/21 06:05 01/02/21 06:05 01/02/21 01/02/21 01/02/21 06:05 06:05 06:05 WBC 12.3 H RBC 4.28 Hgb 8.4 L Hct 29.9 L MCV 69.9 L MCH 19.6 L MCHC 28.1 L RDW 17.7 H Plt Count 297 MPV 9.7 Immature Gran % (Auto) 0.4 Neut % (Auto) 87.9 H Lymph % (Auto) 4.4 L [place] % (Auto) 6.9 Eos % (Auto) 0.2 Baso % (Auto) 0.2 Lymph # (Auto) 0.54 L [place] # (Auto) 0.9 H Eos # (Auto) 0.0 Baso # (Auto) 0.0 Abs Immat Gran (auto) 0.05 H Absolute Neuts (auto) 10.8 H Absolute Nucleated RBC 0.0 Nucleated RBC % 0.0 Sodium 137 Potassium 3.7 Chloride 105 Carbon Dioxide 25 Anion Gap 7 L BUN 8 Creatinine 0.60 L Estim Creat Clear Calc 143 Estimated GFR > 60 Glucose 116 H Lactic Acid 1.1 Calcium 8.4 Magnesium Total Bilirubin 0.5 AST 16 ALT 11 Alkaline Phosphatase 92 Total Protein 7.0 Albumin 3.4 L 01/02/21 06:05 WBC RBC Hgb Hct MCV MCH MCHC RDW Plt Count MPV Immature Gran % (Auto) Neut % (Auto) Lymph % (Auto) [place] % (Auto) Eos % (Auto) Baso % (Auto) Lymph # (Auto) [place] # (Auto) Eos # (Auto) Baso # (Auto) Abs Immat Gran (auto) Absolute Neuts (auto) Absolute Nucleated RBC Nucleated RBC % Sodium Potassium Chloride Carbon Dioxide Anion Gap BUN Creatinine Estim Creat Clear Calc Estimated GFR Glucose Lactic Acid Calcium Magnesium 1.5 L Total Bilirubin AST ALT Alkaline Phosphatase Total Protein Albumin Microbiology 01/01/21 10:01 Blood Blood Culture - Preliminary 01/01/21 10:40 Blood Blood Culture - Preliminary Post-procedural complaints: none Patient Feedback: Patient satisfied with anesthetic care.
--- NOTE | 2021-01-02 15:04 | P.PNAN_ITS ---
Anes - Prog Note Post-Op Date/Time: 01/02/21 15:04 Cardiovascular status: normal Respiratory status: normal Airway patency: baseline Mental status: baseline Post-Op hydration status: normal Vital Signs: Last Vital Signs Temp 36.6 C 01/02/21 10:40 Pulse 100 01/02/21 10:40 Resp 17 01/02/21 10:40 BP 125/71 01/02/21 10:40 Pulse Ox 95 01/02/21 10:40 Pain Score (VAS): 0 I/O: Intake & Output 01/01/21 01/02/21 01/02/21 23:59 07:59 15:59 Intake Total 6797 582 0944 Balance 1372 359 1203 Laboratory Tests 01/02/21 06:05 01/02/21 06:05 01/02/21 01/02/21 01/02/21 06:05 06:05 06:05 WBC 12.3 H RBC 4.28 Hgb 8.4 L Hct 29.9 L MCV 69.9 L MCH 19.6 L MCHC 28.1 L RDW 17.7 H Plt Count 297 MPV 9.7 Immature Gran % (Auto) 0.4 Neut % (Auto) 87.9 H Lymph % (Auto) 4.4 L [place] % (Auto) 6.9 Eos % (Auto) 0.2 Baso % (Auto) 0.2 Lymph # (Auto) 0.54 L [place] # (Auto) 0.9 H Eos # (Auto) 0.0 Baso # (Auto) 0.0 Abs Immat Gran (auto) 0.05 H Absolute Neuts (auto) 10.8 H Absolute Nucleated RBC 0.0 Nucleated RBC % 0.0 Sodium 137 Potassium 3.7 Chloride 105 Carbon Dioxide 25 Anion Gap 7 L BUN 8 Creatinine 0.60 L Estim Creat Clear Calc 143 Estimated GFR > 60 Glucose 116 H Lactic Acid 1.1 Calcium 8.4 Magnesium Total Bilirubin 0.5 AST 16 ALT 11 Alkaline Phosphatase 92 Total Protein 7.0 Albumin 3.4 L 01/02/21 06:05 WBC RBC Hgb Hct MCV MCH MCHC RDW Plt Count MPV Immature Gran % (Auto) Neut % (Auto) Lymph % (Auto) [place] % (Auto) Eos % (Auto) Baso % (Auto) Lymph # (Auto) [place] # (Auto) Eos # (Auto) Baso # (Auto) Abs Immat Gran (auto) Absolute Neuts (auto) Absolute Nucleated RBC Nucleated RBC % Sodium Potassium Chloride Carbon Dioxide Anion Gap BUN Creatinine Estim Creat Clear Calc Estimated GFR Glucose Lactic Acid Calcium Magnesium 1.5 L Total Bilirubin AST ALT Alkaline Phosphatase Total Protein Albumin Microbiology 01/01/21 10:01 Blood Blood Culture - Preliminary 01/01/21 10:40 Blood Blood Culture - Preliminary Post-procedural complaints: none Patient Feedback: Patient satisfied with anesthetic care.
[2021-01-02] MEDS: ONDANSETRON INJ 4 MG/2 ML VIAL IV PUSH (20:42)
[2021-01-03] MEDS: oxyCODONE/ACETAMINOPHEN (*CRX) 5-325 MG TABLET 1 TABLET PO ×3 (04:23→21:45)
[2021-01-03 06:53] VITALS: BP 105/61; PULSE 102; RESP 18; TEMP 37.4; O2SAT 92
[2021-01-03] MEDS: SODIUM CHLORIDE 0.9% IV 1,000 ML 125 ML IV CONT (08:09)
--- NOTE | 2021-01-03 09:24 | WPDUROPN2 ---
Progress Note: A&P Assessment and Plan (1) Pyelonephritis: Code(s): N12 - Tubulo-interstitial nephritis, not specified as acute or chronic Status: Acute (2) Hydronephrosis with urinary obstruction due to ureteral calculus: Code(s): N13.2 - Hydronephrosis with renal and ureteral calculous obstruction Status: Acute (3) Left ureteral stone: Code(s): N20.1 - Calculus of ureter Status: Acute Assessment and Plan: POD#2 s/p L URS with stone extraction and L stent - pain controlled and tolerating PO - low grade fever overnight. I just ordered AM labs. Urine cx showing Ecoli, pending sensitivities. On rocephin - mild tachycardia- will defer to hospitalist - will need stent removal with Parres in a week Subjective Subjective Date/Time Seen: 01/03/21 09:24 Feels OK. Had low grade fever last night. Stent pain is managed with PO pain meds Review of Systems Review of Systems: All systems reviewed & are unremarkable except as noted in HPI and below Exam Const: General: cooperative, healthy appearing and comfortable Chest: Chest palpation & inspection: normal inspection of the chest Resp: Effort & Inspection: normal respiratory effort GI: Inspection: normal to inspection GI Palp: No abdominal tenderness and Yes Soft to palpation Objective Data Vital Signs Vital Signs: Vital Signs - 24 hr 01/02/21 10:40 01/02/21 15:57 01/02/21 20:00 Temperature 36.6 C 36.9 C 37.9 C H Pulse Rate 100 102 H 117 H Respiratory Rate 17 16 18 Blood Pressure 125/71 116/68 147/75 H Pulse Oximetry 95 94 01/02/21 22:37 01/03/21 06:53 Temperature 37.4 C Pulse Rate 102 H Respiratory Rate 18 Blood Pressure 105/61 Pulse Oximetry 92 92 Intake/Output Intake/Output: Intake & Output 12/31/20 01/01/21 01/02/21 01/03/21 23:59 23:59 23:59 23:59 Intake Total 2900 2790 2250 Balance 2900 2790 2250 Meds/Results Medications: Active Medications Generic Name Dose Route Start Last Admin Trade Name Freq PRN Reason Stop Dose Admin Albuterol 2 puff 01/01/21 18:00 Albuterol Sulfate (*Sp) Aerosol 1 Puff INHALATION Q6HRT PRN Shortness Of Breath Hydromorphone HCl 0.5 mg 01/01/21 09:33 01/02/21 11:24 Hydromorphone Hcl Inj (*Crx) 1 Mg/Ml Syr IV PUSH 0.5 mg Q4H PRN Administration Pain Rated 7-10 Sodium Chloride 1,000 mls @ 125 mls/hr 01/01/21 09:35 01/03/21 08:09 Normal Saline Iv IV CONT 125 mls/hr .Q8H MAYANK Administration Ceftriaxone Sodium/Dextrose 1 gm in 50 mls @ 100 mls/hr 01/02/21 09:00 01/03/21 08:45 Rocephin 1 Gm/D5w 50 Ml IVPB Infused Q24H MAYANK Infusion Ondansetron HCl 4 mg 01/01/21 09:33 01/02/21 20:42 Ondansetron Inj 4 Mg/2 Ml Vial IV PUSH 4 mg Q4H PRN Administration Nausea Oxycodone/Acetaminophen 1 tablet 01/02/21 12:52 01/03/21 04:23 Oxycodone/Acetaminophen (*Crx) 5-325 Mg Tablet PO 1 tablet Q4H PRN Administration Pain Rated 4-6 Radiology Results: ITS Impressions Abdomen/Pelvis CT 01/01/21 07:38 IMPRESSION: 1. 5 mm stone in mid left ureter with mild left hydronephrosis. 2. Decreased left-sided nephrogram secondary to obstructive uropathy. Heterogeneity of the nephrogram may be secondary to pyelonephritis or chronic kidney disease. 3. Supraumbilical ventral hernias containing fat. Ureter Stent X-Ray 01/01/21 15:09 IMPRESSION: 1. Left internal ureteral stent in expected position post reported left ureteral stone extraction. Correlate with procedure note for further detail. Quality VTE Prophylaxis VTE prophylaxis: mechanical ordered
[2021-01-03 09:53] LABS: Hematocrit 28.2 % (37.0-47.0); Mean Corpuscular HGB Conc 28.4 g/dl (32-36); Mean Corpuscular Hemoglobin 19.4 pg (26-34); Mean Corpuscular Volume 68.3 fl (80-100); Mean Platelet Volume 9.2 fl (7.4-10.4); Platelet Count Result 253 k/mm3 (150-375); Red Blood Count 4.13 M/mm3 (4.2-5.4); Red Cell Distribution Width 17.4 % (11.5-14.5); White Blood Count 7.4 K/mm3 (4.5-10.0)
[2021-01-03 10:12] LABS: Anion Gap 9 mmol/L (8-16); Blood Urea Nitrogen 7 mg/dL (7-17); Carbon Dioxide 24 mmol/L (22-30); Chloride 103 mmol/L (98-107); Estimated CRCL calculation 143 ml/min; Estimated Glomerular Filt Rate > 60; Glucose 112 mg/dL (65-110); Sodium 136 mmol/L (137-145)
--- NOTE | 2021-01-03 11:35 | PM.IMPN ---
Progress Note: A&P Assessment and Plan (1) Left ureteral stone: Code(s): N20.1 - Calculus of ureter Status: Acute Assessment and Plan: Status post cystoscopy, retrograde pyelogram and stent placement. Supportive care Follow urology recommendations (2) Urinary tract infection: Code(s): N39.0 - Urinary tract infection, site not specified Status: Acute Assessment and Plan: Continue with ceftriaxone. Urine and blood cultures are pending. Continue to monitor (3) Asthma: Code(s): J45.909 - Unspecified asthma, uncomplicated Status: Chronic Assessment and Plan: P.r.n. albuterol inhaler. Not wheezing on exam Continue to monitor (4) Anemia: Code(s): D64.9 - Anemia, unspecified Status: Chronic Assessment and Plan: Appears to be chronic. Continue to monitor. Status post gastric bypass Subjective Date/time seen: 01/03/21 11:35 I feel better today, still having soreness on my back and a headache. Review of Systems Review of Systems: All systems reviewed & are unremarkable except as noted in HPI and below Constitutional: Constitutional: Reports as per HPI and Reports no additional constitutional complaints Eyes: Eyes: Reports as per HPI and Reports no additional eye complaints ENT: Reports system reviewed and no additional complaints, except as documented and Reports Normal hearing present Cardiovascular: Cardiovascular: Reports no additional cardiovascular complaints Respiratory: Respiratory: Reports no additional respiratory complaints and Reports no additional respiratory complaints Gastrointestinal: Gastrointestinal: Reports as per HPI and Reports no additional gastrointestinal complaints Musculoskeletal: Musculoskeletal: Reports no additional musculoskeletal complaints Integumentary/Breasts: Skin/Breast: Reports system reviewed and no additional complaints, except as docu and Reports as per HPI Neurologic: Reports system reviewed and no additional complaints, except as documented, Reports as per HPI and Reports Normal hearing present Psychiatric: Psychiatric: Reports no additional psychiatric complaints and Reports as per HPI Endocrine: Endocrine: Reports no additional endocrine complaints Hematologic/Lymphatic: Hematologic/Lymphatic: Reports no additional hematologic/lymphatic complaints Allergic/Immunologic: Allergic/Immunologic: Reports no additional allergic/immunologic complaints Exam Narrative: Patient is laying in bed Const: General: cooperative, healthy appearing, comfortable, no acute distress, well developed, alert, awake, Physically active and ill appearing acutely Nutritional Appearance: well nourished and obese morbidly obese Orientation/consciousness: oriented to person, oriented to place, oriented to time and patient oriented x3 Limitations: no limitations HENMT: Head: normal to inspection, No palpable skull fracture present, normocephalic and atraumatic Ears: hearing grossly normal bilaterally and external ears normal General nose exam: Normal external nose present Face and sinus: normal facial exam Eyes: General: appearance normal, both eyes and all related structures Alignment and Position: alignment normal Periorbital: periorbital findings normal Eyelids: eyelids normal Conjunctivae: conjunctivae normal Sclera: sclerae normal Cornea: corneas normal Pupils: Equal, round and reactive pupils present EOM: EOMs intact bilaterally Neck: Neck: normal visual inspection, full ROM, no lymphadenopathy and no JVD Thyroid: thyroid normal Lymphatic: no lymphadenopathy noted Chest: Chest palpation & inspection: normal inspection of the chest Resp: Effort & Inspection: normal respiratory effort and able to speak in complete sentences Auscultation: clear to auscultation bilaterally Percussion: percussion normal Cardio: Jugular venous distension: no JVD Palpation: normal PMI Rate: regular rate Rhythm: regular rhyth
[2021-01-03 14:55] VITALS: BP 111/70; PULSE 99; RESP 14; TEMP 37.3; O2SAT 95
[2021-01-03 20:48] VITALS: O2SAT 92
[2021-01-03 21:46] VITALS: BP 130/98; PULSE 100; RESP 16; TEMP 37.6; O2SAT 92
[2021-01-04] MEDS: oxyCODONE/ACETAMINOPHEN (*CRX) 5-325 MG TABLET 1 TABLET PO ×2 (04:35→12:33)
[2021-01-04 05:11] LABS: Hematocrit 31.6 % (37.0-47.0); Hemoglobin 8.6 g/dL (12.0-15.0); Mean Corpuscular HGB Conc 27.2 g/dl (32-36); Mean Corpuscular Hemoglobin 19.9 pg (26-34); Mean Platelet Volume 10.2 fl (7.4-10.4); Platelet Count Result 256 k/mm3 (150-375); Red Blood Count 4.33 M/mm3 (4.2-5.4); Red Cell Distribution Width 17.9 % (11.5-14.5)
[2021-01-04 05:29] VITALS: BP 121/70; PULSE 99; RESP 16; TEMP 36.4; O2SAT 98
[2021-01-04] MEDS: levoFLOXacin 750 MG TABLET PO (08:38)
[2021-01-04] MEDS: polyethylene glycoL 3350 17 GM POWD.PACK PO (08:39)
--- NOTE | 2021-01-04 12:16 | WPDUROPN2 ---
Progress Note: A&P Assessment and Plan (1) Left ureteral stone: Code(s): N20.1 - Calculus of ureter Status: Acute Assessment and Plan: Stent removal with my partner Dr. Falcon in 1-2 weeks (2) Hydronephrosis with urinary obstruction due to ureteral calculus: Code(s): N13.2 - Hydronephrosis with renal and ureteral calculous obstruction Status: Acute (3) Urinary tract infection: Code(s): N39.0 - Urinary tract infection, site not specified Status: Acute Assessment and Plan: When stable can go home on 2 weeks of culture specific antibiotics Subjective Subjective Date/Time Seen: 01/04/21 12:16 States she is feeling better. Urine culture have come back with E coli with multiple resistances. Exam Const: General: cooperative, healthy appearing, alert and awake; No acute distress Nutritional Appearance: overweight HENMT: Head: normal to inspection Mouth: Yes Normal oral and palatal mucosa present Eyes: General: appearance normal, both eyes and all related structures Neck: Neck: normal visual inspection Resp: Effort & Inspection: normal respiratory effort and able to speak in complete sentences Skin: General skin exam: normal color Neuro: General: patient oriented x3 Extrem: General: normal to inspection and full ROM Psych: Appearance: grossly normal Objective Data Vital Signs Vital Signs: Vital Signs - 24 hr 01/03/21 14:55 01/03/21 20:48 01/03/21 21:46 Temperature 99.2 F 99.7 F H Pulse Rate 99 100 Respiratory Rate 14 16 Blood Pressure 111/70 130/98 H Pulse Oximetry 95 92 92 01/04/21 05:29 Temperature 97.5 F L Pulse Rate 99 Respiratory Rate 16 Blood Pressure 121/70 Pulse Oximetry 98 Intake/Output Intake/Output: Intake & Output 01/01/21 01/02/21 01/03/21 01/04/21 23:59 23:59 23:59 23:59 Intake Total 2900 2790 3520 620 Balance 2900 2790 3520 620 Meds/Results Medications: Active Medications Generic Name Dose Route Start Last Admin Trade Name Freq PRN Reason Stop Dose Admin Acetaminophen/Codeine Phosphate 1 tab 01/03/21 13:19 Acetaminophen/Codeine (*Crx) 300/30 Mg Tablet PO Q4H PRN Pain Rated 4-6 Albuterol 2 puff 01/01/21 18:00 Albuterol Sulfate (*Sp) Aerosol 1 Puff INHALATION Q6HRT PRN Shortness Of Breath Hydromorphone HCl 0.5 mg 01/01/21 09:33 01/02/21 11:24 Hydromorphone Hcl Inj (*Crx) 1 Mg/Ml Syr IV PUSH 0.5 mg Q4H PRN Administration Pain Rated 7-10 Levofloxacin 750 mg 01/04/21 09:00 01/04/21 08:38 Levofloxacin 750 Mg Tablet PO 750 mg DAILY MAYANK Administration Ondansetron HCl 4 mg 01/01/21 09:33 01/02/21 20:42 Ondansetron Inj 4 Mg/2 Ml Vial IV PUSH 4 mg Q4H PRN Administration Nausea Oxycodone/Acetaminophen 1 tablet 01/02/21 12:52 01/04/21 04:35 Oxycodone/Acetaminophen (*Crx) 5-325 Mg Tablet PO 1 tablet Q4H PRN Administration Pain Rated 4-6 Polyethylene Glycol 17 gm 01/04/21 09:00 01/04/21 08:39 Polyethylene Glycol 3350 17 Gm Powd.Pack PO 17 gm QAM MAYANK Administration Radiology Results: ITS Impressions Abdomen/Pelvis CT 01/01/21 07:38 IMPRESSION: 1. 5 mm stone in mid left ureter with mild left hydronephrosis. 2. Decreased left-sided nephrogram secondary to obstructive uropathy. Heterogeneity of the nephrogram may be secondary to pyelonephritis or chronic kidney disease. 3. Supraumbilical ventral hernias containing fat. Ureter Stent X-Ray 01/01/21 15:09 IMPRESSION: 1. Left internal ureteral stent in expected position post reported left ureteral stone extraction. Correlate with procedure note for further detail. Labs Labs: Laboratory Results - last 24 hr 01/04/21 04:33 WBC 7.0 RBC 4.33 Hgb 8.6 L Hct 31.6 L MCV 73.0 L D MCH 19.9 L MCHC 27.2 L RDW 17.9 H Plt Count 256 MPV 10.2 Quality VTE Prophylaxis VTE prophylaxis: mechanical ordered
--- NOTE | 2021-01-04 13:03 | PM.DS ---
DS: Admitting Diagnosis Discharge Date 01/04/2021 Admitting Diagnosis (1) Left ureteral stone: Code(s): N20.1 - Calculus of ureter Status: Acute Assessment and Plan: Urology has seen the patient and placed a stent. The patient is complaining some some nausea will continue with IV fluids and Zofran. She has IV Tylenol for discomfort. She also has Dilaudid as well. (2) Urinary tract infection: Code(s): N39.0 - Urinary tract infection, site not specified Status: Acute Assessment and Plan: Continue with ceftriaxone. Urine and blood cultures are pending. Patient has leukocytosis. (3) Asthma: Code(s): J45.909 - Unspecified asthma, uncomplicated Status: Chronic Assessment and Plan: P.r.n. albuterol inhaler. (4) Anemia: Code(s): D64.9 - Anemia, unspecified Status: Chronic Assessment and Plan: Appears to be chronic. Continue to monitor. DS: Discharge Diagnosis Discharge Diagnosis (1) Left ureteral stone: Code(s): N20.1 - Calculus of ureter Status: Acute Assessment and Plan: Status post cystoscopy, retrograde pyelogram and stent placement. Supportive care Follow urology recommendations (2) Urinary tract infection: Code(s): N39.0 - Urinary tract infection, site not specified Status: Acute Assessment and Plan: Continue with ceftriaxone. Urine and blood cultures are pending. Continue to monitor (3) Asthma: Code(s): J45.909 - Unspecified asthma, uncomplicated Status: Chronic Assessment and Plan: P.r.n. albuterol inhaler. Not wheezing on exam Continue to monitor (4) Anemia: Code(s): D64.9 - Anemia, unspecified Status: Chronic Assessment and Plan: Appears to be chronic. Continue to monitor. Status post gastric bypass DS: Summary Hospital Course Reason for hospitalization: Left flank pain Hospital Course: this is a 45-year-old female patient who has no prior history of any kidney stones. The patient came to the emergency room to be evaluated for left lower abdominal pain. This pain developed yesterday. Use located the left lower abdomen radiate to her left lower back. Patient did not have any vomiting but did have some nausea. She took ibuprofen last night and stated she had some relief. She denies any dysuria or hematuria. She was rating her pain 8/10. Her white count was noted to be 19.4. H&H is 9.2 and 33.1. Patient was positive for UTI. The patient was started on IV fluids and ceftriaxone. Abdominal CT was read as the following 1. 5 mm stone in mid left ureter with mild left hydronephrosis. 2. Decreased left-sided nephrogram secondary to obstructive uropathy. Heterogeneity of the nephrogram may be secondary to pyelonephritis or chronic kidney disease. 3. Supraumbilical ventral hernias containing fat. Urology has been consulted. The patient had a cystoscopy left ureteroscopy with stone extraction, left ureteral stent placement by Dr. Falcon. Postoperatively the patient was complaining of nausea. The patient is complaining of chills as well. The patient is being admitted to inpatient status on the date of service of 01/01/2021. Patient had an uneventful hospitalist she was placed on IV antibiotics a urine culture sensitivity came back for for E coli sensitive to amoxicillin patient was sent home on 2 weeks worth of amoxicillin. She will follow-up in outpatient setting with a with urology office Consults obtained: Urology Procedures performed: Cystoscopy, stent placement and stone retrieval Status at Discharge Cognitive/behavioral status at discharge: Awake alert oriented x4 Functional status at discharge: independent ambulation Overall status at discharge: patient is progressing back to baseline Time Spent with Patient Time attestation: Total time spent providing and/or coordinating discharge services: Time spent: Greater than 30 minutes Exam Narrative: Marla
== END 2021-01-04 14:30 | disposition home or self-care (01) | DRG 660 ==
LOC: ANHED 09:18 → ANH3MEDSUR 09:49
PROVIDERS: Emergency Medicine; Nurse Practitioner; Urology; Admitting Provider Internal Medicine; Emergency Provider General Practice; PCP Internal Medicine; Visit Provider Internal Medicine
PROC: 0T778DZ Dilation of Left Ureter with Intraluminal Device, Via Natural or Artificial Opening Endoscopic (ICD-10-PCS; CPT 52352; principal; 2021-01-01 14:00)
DX: N13.6 Pyonephrosis (principal); Z68.43 Body mass index [BMI] 50.0-59.9, adult; B96.20 Unspecified Escherichia coli [E. coli] as the cause of diseases classified elsewhere; E66.01 Morbid (severe) obesity due to excess calories; J45.909 Unspecified asthma, uncomplicated; D64.9 Anemia, unspecified; E87.6 Hypokalemia; R51.9 Headache, unspecified; K59.00 Constipation, unspecified; Z98.84 Bariatric surgery status
CPT/HCPCS: 36415; 74177; 80048; 80053; 81001; 81025; 82365; 83605; 83690; 83735; 85025; 85027; 87040; 87077; 87086; 87088; 87186; 88300; 96365; 96375; 99285; A9270; C1769; C2617; G0378; J0131; J0696; J1170; J2250; J2405; J2704; J3010; J3480; J7030; J7120; Q9967

== ENCOUNTER 2021-05-20 09:59 | Emergency (ER) | payer OTHER, SELFPAY ==
--- NOTE | ~2021-05-20 | CT_ITS ---
EXAMINATION: CTA chest PE protocol DATE: 05/20/2021 13:27 INDICATION: Elevated d-dimer, atypical pleuritic left chest pain TECHNIQUE: Computed tomography angiography (CTA) of the chest was performed with 200 mL Omnipaque-350 intravenous contrast timed to evaluate the pulmonary arteries. Coronal maximum intensity projection 3D-reconstructions were created by the technologist. The dose-length product (DLP) was 2052.83 mGy-cm . Automated exposure control and iterative reconstruction technique were employed. COMPARISON: None. FINDINGS: The pulmonary arteries are moderately well-opacified. No pulmonary embolism is identified. The examination is limited by the patient's body habitus. There is minimal dependent atelectasis. No pleural effusion or pneumothorax is identified. No pathologically enlarged thoracic lymph nodes are identified. The heart size is normal. The lungs are free of focal airspace opacities. There are farias es of gastric bypass. There is mild thoracic spondylosis. IMPRESSION: 1. No pulmonary embolism or acute cardiopulmonary abnormality. Reviewed, dictated and finalized at location B. RCE ATTORNEY
--- NOTE | ~2021-05-20 | XR_ITS ---
EXAMINATION: XR chest 2V DATE: 05/20/2021 10:28 INDICATION: Left-sided chest pain TECHNIQUE: PA and lateral views of the chest are obtained. COMPARISON: 04/19/2019 FINDINGS: The lungs are free of acute opacities. There is no pleural effusion or pneumothorax. The ca rdiomediastinal silhouette is normal. The visualized bones and soft tissues are unremarkable. IMPRESSION: 1. No acute cardiopulmonary abnormality. Reviewed, dictated and finalized at location B. MANUFACTURING ENGINEER
--- NOTE | 2021-05-20 10:03 | ECG_ITS ---
Measurements Intervals [place] Rate: 93 P: 42 ID: 141 QRS: 42 QRSD: 90 T: 64 QT: 364 QTc: 455 Interpretive Statements SINUS RHYTHM BASELINE ARTIFACT OTHERWISE NORMAL ECG NO PREVIOUS ECG AVAILABLE FOR COMPARISON Electronically Signed On 05-20-2021 14:13:33 AUTOCUTTER by Jaskaran Fulton M.D.
[2021-05-20 10:04] VITALS: BP 150/85; PULSE 97; RESP 18; TEMP 36.4; O2SAT 97
[2021-05-20 10:14] VITALS: PULSE 92
[2021-05-20 10:27] LABS: Basophils Percent Auto 0.7 % (0.2-1.2); Eosinophils Absolute Auto 0.1 K/mm3 (0-0.3); Eosinophils Percent Auto 1.7 % (0-4.4); Hematocrit 33.4 % (37.0-47.0); Hemoglobin 8.6 g/dL (12.0-15.0); Immature Granulocyte Absolute 0.02 K/mm3 (0.00-0.031); Immature Granulocyte Percent A 0.3 % (0-0.5); Lymphocytes Absolute Auto 1.15 K/mm3 (0.9-3.2); Lymphocytes Percent Auto 20.1 % (18.3-44.2); Mean Corpuscular HGB Conc 25.7 g/dl (32-36); Mean Corpuscular Volume 69.7 fl (80-100); Monocytes Absolute Auto 0.6 K/mm3 (0.1-0.6); Monocytes Percent Auto 10.5 % (2.6-8.5); Neutrophils Absolute Auto 3.8 K/mm3 (1.3-6.7); Neutrophils Percent Auto 66.7 % (45.5-73.1); Platelet Count Result 374 k/mm3 (150-375); Red Blood Count 4.79 M/mm3 (4.2-5.4); Red Cell Distribution Width 20.1 % (11.5-14.5); White Blood Count 5.7 K/mm3 (4.5-10.0)
[2021-05-20 10:28] LABS: Prothrombin Time 12.7 Seconds (11.1-14.7)
[2021-05-20 10:29] LABS: Partial Thromboplastin Time 20.7 SECONDS (22.3-36.8)
[2021-05-20 10:32] LABS: Alanine Aminotransferase 13 U/L (4-35); Alkaline Phosphatase 84 U/L (38-126); Anion Gap 4 mmol/L (8-16); Aspartate Amino Transferase 41 U/L (14-36); Bilirubin,Total 0.6 mg/dL (0.2-1.3); Blood Urea Nitrogen 12 mg/dL (7-17); Calcium 8.2 mg/dL (8.4-10.2); Carbon Dioxide 28 mmol/L (22-30); Chloride 106 mmol/L (98-107); Estimated CRCL calculation 169 ml/min; Estimated Glomerular Filt Rate > 60; Glucose 107 mg/dL (65-110); Lipase 61 U/L (23-300); Potassium 4.6 mmol/L (3.4-5.0); Sodium 138 mmol/L (137-145)
[2021-05-20 10:41] LABS: Troponin I < 0.012 ng/mL (0.000-0.034)
--- NOTE | 2021-05-20 10:53 | ED.CHESTPAIN ---
HPI - Chest Pain General Chief Complaint: Chest Pain Stated Complaint: chest pain Time Seen by Provider: 05/20/21 10:28 Source: patient Mode of arrival: ambulatory Limitations: no limitations History of Present Illness HPI narrative: Patient is a 45-year-old female with past medical history of gastric bypass surgery and chronic anemia, who presents to the ED with complaints of lower midsternal chest pain x2 days. Patient describes the pain as an intermittent stabbing sensation just to the left of her distal sternum. She states it feels as though something is getting stuck in her chest. The pain is somewhat pleuritic in nature, and can be improved when she drinks something cold. She has not tried taking any other pain medication. Patient denies any other complaints, food regurgitation, fever, chills, nausea, vomiting, cough, cold symptoms, shortness of breath, back pain, bilateral lower extremity pain or edema. She is not a smoker. She is not on any hormonal control. She denies any other recent immobilization, hospitalizations or surgeries. Related Data Allergies Allergy/AdvReac Type Severity Reaction Status Date / Time morphine Allergy Unknown Itching Verified 05/20/21 10:07 Review of Systems Review of Systems: CONSTITUTIONAL: Denies fever, chills, or sweats. ENT: Denies rhinorrhea, congestion. CARDIOVASCULAR: Reports lower midsternal chest pain. Denies palpitations or edema. RESPIRATORY: Denies cough or dyspnea. GASTROINTESTINAL: Denies food regurgitation, abdominal pain, nausea, vomiting, or diarrhea. MUSCULOSKELETAL: Denies BLE pain or edema, back pain, joint pain, or myalgia. NEUROLOGIC: Denies headache, numbness, or weakness. All systems reviewed & are unremarkable except as noted in HPI and below PMFSH Past Medical History Medical History Anemia Asthma Morbid obesity Surgical History Surgical History H/O section H/O gastric bypass Hx of appendectomy Hx of cholecystectomy Family History Family History Father Diabetes mellitus Hypertension Mother Hypertension Family history of elevated blood lipids Other Family history of chronic obstructive pulmonary disease Social History Social History (Reviewed 05/20/21 @ 18:03 by DIAMANTE España Social History: The patient is a lifelong nonsmoker. She lives with the 1 child that she has. She only has the 1 child. 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 The patient works for for the [employer]. She denies any marijuana, alcohol, or illicit drugs. She is a lifelong nonsmoker. Code status full code Smoking status: Never smoker Second hand tobacco smoke exposure: No Alcohol intake: never Substance use: never Gender identity (if verbalized by the patient): Female Spiritual care concerns: No Exam Narrative: GENERAL: Well appearing, obese, non-toxic, in no acute distress. HEAD: Normocephalic, atraumatic. EYES: EOMI, conjunctivae clear bilaterally. THROAT: Pharynx clear, no exudate. MMs moist. NECK: Supple. No adenopathy, no masses. RESPIRATORY: Airway patent, respirations nonlabored. Clear to auscultation bilaterally, no rales, rhonchi, wheezing. CARDIOVASCULAR: Regular rate and rhythm without murmurs, rubs, or gallops. Peripheral pulses 2+ and equal bilaterally. ABDOMINAL: Soft, nontender, nondistended, no hepatosplenomegaly. Normoactive BS. MUSCULOSKELETAL: Moves all extremities. Strength/ROM intact without gross deformities or TTP. No chest wall tenderness to palpation. No edema. No calf tenderness. SKIN: Warm, dry, normal color. No rashes. NEURO: A&O X3. Speech clear. Cranial nerves II-XII grossly intact. Steady gait. No ataxic movements. PSYCHIATRIC: Appropriate mood and affect. Normal interaction. Course Vital S
[2021-05-20 10:57] VITALS: BP 146/95; PULSE 90; RESP 20; O2SAT 99
[2021-05-20 11:04] LABS: Hypochromasia 2+ (NORMAL); Microcytosis 1+ (NORMAL); Platelet Estimate Adequate (Adequate)
[2021-05-20] MEDS: LIDOCAINE HCL 2% VISC SOLN 15 ML UDC 20 ML PO (11:04)
[2021-05-20] MEDS: MAG HYDROX/AL HYDROX/SIMETH 30 ML UDC PO (11:04)
[2021-05-20 12:38] LABS: D Dimer 0.53 ug/mL (<0.48)
[2021-05-20 13:23] VITALS: BP 144/85; PULSE 71; RESP 16; O2SAT 100
[2021-05-20 13:32] LABS: Troponin I < 0.012 ng/mL (0.000-0.034)
[2021-05-20 14:25] VITALS: BP 154/85; PULSE 85; RESP 14; TEMP 36.7; O2SAT 99
== END 2021-05-20 14:27 | disposition home or self-care (01) ==
PROVIDERS: Physician Assistant; Emergency Provider Emergency Medicine; PCP Internal Medicine
DX: R10.13 Epigastric pain (principal); D64.9 Anemia, unspecified; J45.909 Unspecified asthma, uncomplicated; E66.01 Morbid (severe) obesity due to excess calories; Z68.43 Body mass index [BMI] 50.0-59.9, adult
CPT/HCPCS: 36415; 71046; 71275; 80053; 83690; 84484; 85025; 85380; 85610; 85730; 93005; 99284; A9270; Q9967

== ENCOUNTER 2021-07-07 11:56 | Emergency (ER) | payer OTHER, SELFPAY ==
--- NOTE | ~2021-07-07 | XR_ITS ---
XR ankle RT min 3V DATE: 07/07/2021 12:18 INDICATION: Fall. Twisting injury. Lateral ankle pain. TECHNIQUE: 4 views COMPARISON: None FINDINGS: No fracture or dislocation of the ankle or disruption of the ankle mortise. IMPRESSION: No fracture or dislocation Reviewed, dictated and finalized at location A. IMPRESSION: No fracture or dislocation
[2021-07-07 11:58] VITALS: BP 150/100; PULSE 91; RESP 18; TEMP 36.1; O2SAT 99
--- NOTE | 2021-07-07 12:49 | ED.LOWEXIN ---
HPI - Extremity Injury (Lower) General Chief Complaint: Extremity Injury, Lower Stated Complaint: fall Time Seen by Provider: 07/07/21 12:01 History of Present Illness HPI Narrative: Patient is a 45-year-old female who presents ER with right lateral ankle pain. Patient was walking down steps taking out the trash when she suffered inversion injury. Reports pain with attempting to bear weight. No numbness or tingling. Swelling over the lateral aspect. She did not strike her head or lose consciousness. Related Data Home Medications Medication Instructions Recorded Confirmed albuterol sulfate 2 puff INHALATION QID PRN 07/07/21 montelukast [Singulair] 10 mg PO DAILY 07/07/21 Allergies Allergy/AdvReac Type Severity Reaction Status Date / Time morphine Allergy Unknown Itching Verified 07/07/21 12:00 Review of Systems Musculoskeletal: Musculoskeletal: Reports arthralgias, Reports joint swelling and Denies muscle cramps Neurologic: Denies syncope, Denies headache(s), Denies focal weakness and Denies numbness PMFSH Past Medical History Medical History Anemia Asthma Morbid obesity Surgical History Surgical History H/O section H/O gastric bypass Hx of appendectomy Hx of cholecystectomy Family History Family History Father Diabetes mellitus Hypertension Mother Hypertension Family history of elevated blood lipids Other Family history of chronic obstructive pulmonary disease Social History Social History Social History: The patient is a lifelong nonsmoker. She lives with the 1 child that she has. She only has the 1 child. 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 The patient works for for the [employer]. She denies any marijuana, alcohol, or illicit drugs. She is a lifelong nonsmoker. Code status full code Smoking status: Never smoker Second hand tobacco smoke exposure: No Alcohol intake: never Substance use: never Gender identity (if verbalized by the patient): Female Spiritual care concerns: No Exam Narrative: GENERAL: Well-appearing, well-nourished, and in no acute distress. HEAD: Normocephalic, atraumatic. CHEST: Clear to auscultation. No respiratory distress. HEART: Regular rate and rhythm. Normal peripheral pulses. EXTREMITIES: Normal range of motion. No edema. Swelling of the lateral malleolus of the right ankle with tenderness at the malleolus and the ATFL. SKIN: Warm, dry, no rash. NEURO: No focal deficits. Alert and oriented x3. PSYCH: Normal mood and affect. Course Course Emergency Course: Informed of results. Discussed treatment plan. Discharge home. Vital Signs Vital signs: Vital Signs Temperature 97.0 F L 07/07/21 11:58 Pulse Rate 91 07/07/21 11:58 Respiratory Rate 18 07/07/21 11:58 Blood Pressure 150/100 H 07/07/21 11:58 Pulse Oximetry 99 07/07/21 11:58 Temperature 97.0 F L 07/07/21 11:58 Pulse Rate 91 07/07/21 11:58 Respiratory Rate 18 07/07/21 11:58 Blood Pressure 150/100 H 07/07/21 11:58 Pulse Oximetry 99 07/07/21 11:58 MDM - Extremity Injury (Lower) Imaging Data Radiologist's impression: ITS Impressions Ankle X-Ray 07/07/21 12:20 IMPRESSION: No fracture or dislocation Discharge Plan Discharge Clinical Impression: Right ankle sprain Patient Disposition: Home, Self-Care Condition: Stable Instructions: Ankle Sprain (ED), Crutch Instructions (ED) Additional Instructions: Bear weight as tolerated with crutches. Return to the ER if you suffer new injury, your foot is cold/blue, or you have additional concerns. It is recommended you purchase a stirrup splint from [employer] or [employer]. This will help stabilize the j
== END 2021-07-07 13:21 | disposition home or self-care (01) ==
PROVIDERS: Emergency Provider Emergency Medicine; PCP Internal Medicine
DX: S93.401A Sprain of unspecified ligament of right ankle, initial encounter (principal); J45.909 Unspecified asthma, uncomplicated; E66.01 Morbid (severe) obesity due to excess calories; Z68.43 Body mass index [BMI] 50.0-59.9, adult; Z98.84 Bariatric surgery status; Z86.2 Personal history of diseases of the blood and blood-forming organs and certain disorders involving the immune mechanism; X50.9XXA Other and unspecified overexertion or strenuous movements or postures, initial encounter
CPT/HCPCS: 73610; 99283

== ENCOUNTER 2021-08-01 04:42 | Emergency (ER) | payer OTHER, SELFPAY ==
--- NOTE | ~2021-08-01 | XR_ITS ---
EXAMINATION: XR chest 2V DATE: 08/01/2021 05:31 INDICATION: Cough TECHNIQUE: PA and lateral views of the chest were obtained. COMPARISON: Chest radiograph and CT dated 05/20/2021 FINDINGS: The lungs are clear with no focal airspace opacities, pulmonary edema, pleural effusion or pneumothor ax. The cardiomediastinal silhouette is normal. Mild thoracic spondylosis. IMPRESSION: 1. No acute cardiopulmonary disease. Reviewed, dictated and finalized at location A.
[2021-08-01 05:08] VITALS: BP 136/84; PULSE 91; RESP 18; TEMP 37.6; O2SAT 99
[2021-08-01 05:11] VITALS: O2SAT 99
--- NOTE | 2021-08-01 05:29 | ED.SOB ---
HPI - SOB/Dyspnea General Chief Complaint: Shortness of Breath/Dyspnea Stated Complaint: cough, sob, bodyaches and diarrhea Time Seen by Provider: 08/01/21 04:57 Source: patient History of Present Illness HPI Narrative: Patient presents with body aches. Patient ports her symptoms started Monday night she noted nausea but no vomiting as well as some diarrhea and abdominal pain. Says the diarrhea has resolved she gets a mild nausea or abdominal pain however since yesterday she has noted cough congestion and shortness of breath. She also reports subjective fever and chills. Shortness her daughter had similar symptoms. She does report a productive cough denies any hemoptysis. Denies any lightheadedness or dizziness. Denies any chest pain. Related Data Home Medications Medication Instructions Recorded Confirmed albuterol sulfate 2 puff INHALATION QID PRN 07/07/21 montelukast [Singulair] 10 mg PO DAILY 07/07/21 Allergies Allergy/AdvReac Type Severity Reaction Status Date / Time morphine Allergy Unknown Itching Verified 07/07/21 12:00 Review of Systems Review of Systems: CONSTITUTIONAL: Denies fever, chills, or sweats. EYES: Denies visual changes, redness, or discharge. ENT: Denies rhinorrhea, congestion, sore throat, or otalgia. CARDIOVASCULAR: Denies chest pain, palpitations, or edema. RESPIRATORY: Reports cough congestion GASTROINTESTINAL: Reports abdominal pain and nausea GENITOURINARY: Denies dysuria or hematuria. SKIN: Denies rash or itching. MUSCULOSKELETAL: Denies back pain, joint pain, or myalgia. NEUROLOGIC: Denies headache, numbness, dizziness, or weakness. PSYCHIATRIC: Denies anxiety or depression. All systems reviewed & are unremarkable except as noted in HPI and below PMFSH Past Medical History Medical History Anemia Asthma Morbid obesity Surgical History Surgical History H/O section H/O gastric bypass Hx of appendectomy Hx of cholecystectomy Family History Family History Father Diabetes mellitus Hypertension Mother Hypertension Family history of elevated blood lipids Other Family history of chronic obstructive pulmonary disease Social History Social History Social History: The patient is a lifelong nonsmoker. She lives with the 1 child that she has. She only has the 1 child. The patient does not have a durable power assistant county attorney for healthcare. The patient works for for the [employer] She denies any marijuana, alcohol, or illicit drugs. She is a lifelong nonsmoker. Code status full code Smoking status: Never smoker Second hand tobacco smoke exposure: No Alcohol intake: never Substance use: never Gender identity (if verbalized by the patient): Female Spiritual care concerns: No Exam Narrative: GENERAL: Well-appearing, well-nourished, and in no acute distress. HEAD: Normocephalic, atraumatic. EYES: PERRLA and EOMI. ENT: Nares clear, no rhinorrhea or epistaxis. Mucous membranes moist. NECK: Supple. No masses. No JVD CHEST: Clear to auscultation. No respiratory distress. No wheezes rales or rhonchi HEART: Regular rate and rhythm. No murmur heard. Normal peripheral pulses. ABDOMEN: Mild pain in the epigastric area with outpatient soft, nondistended, normal active bowel sounds. EXTREMITIES: Normal range of motion. No edema. SKIN: Warm, dry, no rash. NEURO: No focal deficits. Alert and oriented x3. PSYCH: Normal mood and affect. Course Reevaluation(s) Reevaluation #1: Patient reports feeling improved results and plan reviewed with patient. Patient is comfortable outpatient plan. Date: 08/01/21 Time: 07:50 Vital Signs Vital signs: Vital Signs Temperature 37.6 C 08/01/21 05:08 Pulse Rate 91 08/01/21 05:08 Res
[2021-08-01] MEDS: SODIUM CHLORIDE 0.9% IV 1,000 ML 999 ML IV CONT (05:40)
[2021-08-01 05:53] LABS: Alanine Aminotransferase 12 U/L (6-35); Albumin Level 3.6 g/dL (3.5-5.1); Alkaline Phosphatase 87 U/L (38-126); Anion Gap 7 mmol/L (8-16); Appearance Urine Clear (Clear); Aspartate Amino Transferase 25 U/L (14-36); Bilirubin Urine Negative (Negative); Bilirubin,Total 0.4 mg/dL (0.2-1.3); Blood Urea Nitrogen 7 mg/dL (7-17); Calcium 8.3 mg/dL (8.4-10.2); Carbon Dioxide 25 mmol/L (22-30); Chloride 106 mmol/L (98-107); Color Urine Yellow (Yellow); Estimated Glomerular Filt Rate > 60; Glucose 101 mg/dL (65-110); Glucose Urine UA Negative (Negative); Ketones Urine Negative (Negative); Leukocyte Esterase Ur Trace LEU/UL (Negative); Lipase 45 U/L (23-300); Nitrate Urine Negative (Negative); Potassium 3.8 mmol/L (3.4-5.0); Protein Urine Negative (Negative); Sodium 138 mmol/L (137-145)
[2021-08-01 06:01] LABS: Mucus Urine Few /lpf; RBC Urine 0-2 /hpf (0-2); Squamous Epithelial Cell Urine Many /hpf (Few); WBC Urine 0-3 /hpf
[2021-08-01 06:03] LABS: Add Urine Microscopic? YES; Blood Urine Trace (Negative)
[2021-08-01 06:26] LABS: Basophils Percent Auto 0.4 % (0.2-1.2); Eosinophils Absolute Auto 0.1 K/mm3 (0-0.3); Eosinophils Percent Auto 2.6 % (0-4.4); Hematocrit 28.8 % (37.0-47.0); Hemoglobin 7.3 g/dL (12.0-15.0); Immature Granulocyte Absolute 0.03 K/mm3 (0.00-0.031); Immature Granulocyte Percent A 0.6 % (0-0.5); Lymphocytes Absolute Auto 0.91 K/mm3 (0.9-3.2); Lymphocytes Percent Auto 19.7 % (18.3-44.2); Mean Corpuscular HGB Conc 25.3 g/dl (32-36); Mean Corpuscular Hemoglobin 17.4 pg (26-34); Mean Corpuscular Volume 68.6 fl (80-100); Mean Platelet Volume 9.1 fl (7.4-10.4); Monocytes Absolute Auto 0.8 K/mm3 (0.1-0.6); Monocytes Percent Auto 16.2 % (2.6-8.5); Neutrophils Absolute Auto 2.8 K/mm3 (1.3-6.7); Neutrophils Percent Auto 60.5 % (45.5-73.1); Platelet Count Result 314 k/mm3 (150-375); Red Cell Distribution Width 18.1 % (11.5-14.5); White Blood Count 4.6 K/mm3 (4.5-10.0)
[2021-08-01 06:48] LABS: Platelet Estimate Adequate (Adequate)
[2021-08-01 06:50] LABS: Anisocytosis 1+ (NORMAL); Hypochromasia 1+ (NORMAL)
[2021-08-01 07:30] LABS: Influenza A QL RT-PCR Negative (Negative); Influenza B QL RT-PCR Negative (Negative); SARS-CoV-2 RNA PCR Positive
[2021-08-01 08:30] VITALS: BP 154/90; PULSE 89; RESP 16; O2SAT 100
== END 2021-08-01 08:30 | disposition home or self-care (01) ==
PROVIDERS: Emergency Provider Emergency Medicine; PCP Internal Medicine
DX: U07.1 COVID-19 (principal)
CPT/HCPCS: 36415; 71046; 80053; 81001; 83690; 85025; 87502; 96361; 96365; 99284; C9803; J0131; J7030; U0003; U0005

== ENCOUNTER 2021-10-06 17:24 | Emergency (ER) | payer OTHER, SELFPAY ==
[2021-10-06] VITALS (17 sets, daily range): BP systolic 150–164; BP diastolic 72–96; PULSE 92–114; RESP 14–25; TEMP 36.6; O2SAT 94–100
--- NOTE | ~2021-10-06 | CT_ITS ---
EXAMINATION: CT abdomen pelvis w con DATE: 10/06/2021 20:34 INDICATION: Abdominal pain TECHNIQUE: Computed tomography (CT) of the abdomen and pelvis was performed with 100 mL Omnipaque-300 intravenous contrast. Automated exposure control and iterative reconstruction technique were employe d. The dose-length product was 1596.57 mGy-cm. COMPARISON: 01/01/2021. FINDINGS: Lower thorax: Unremarkable Liver: Hepatomegaly Biliary/Gallbladder: Possible mild wall edema and inflammation. No bile duct dilation. Pancreas: No mass or duct dilation. Spleen: Normal. Adrenals:No mass. Kidneys: No mass, stone, or hydronephrosis. Simple left midpole cyst. GI tract: No small or large bowel dilation. Appendix surgically absent. Diverticulosis without divert iculitis. Colonic submucosal fat as can be seen with chronic IBD, obesity, chemotherapy treatment, an d celiac disease. Status post gastric bypass. Mesentery/Peritoneum: No ascites, mass, or free air. Retroperitoneum: No mass. Pelvis: Pelvic organs are within normal limits. Soft Tissues: Uncomplicated fat-containing ventral hernias. Bones: No acute osseous finding. IMPRESSION: No acute abdominopelvic process detected. Reviewed, dictated and finalized at location K.
--- NOTE | 2021-10-06 17:29 | ED.ABDPAIN ---
HPI - Abdominal Pain General Chief Complaint: Abdominal Pain Stated Complaint: abd pain Time Seen by Provider: 10/06/21 17:29 Related Data Home Medications Medication Instructions Recorded Confirmed albuterol sulfate 90 mcg/actuation 2 puff inhalation QID PRN Wheezing 07/07/21 aerosol inhaler montelukast 10 mg tablet 10 mg PO DAILY 07/07/21 (Singulair) Allergies Allergy/AdvReac Type Severity Reaction Status Date / Time morphine Allergy Unknown Itching Verified 07/07/21 12:00 PMFSH Past Medical History Medical History Anemia Asthma Morbid obesity Surgical History Surgical History H/O section H/O gastric bypass Hx of appendectomy Hx of cholecystectomy Family History Family History Father Diabetes mellitus Hypertension Mother Hypertension Family history of elevated blood lipids Other Family history of chronic obstructive pulmonary disease Social History Social History Social History: The patient is a lifelong nonsmoker. She lives with the 1 child that she has. She only has the 1 child. The patient does not have a durable power business attorney for healthcare. The patient works for for the [employer]. She denies any marijuana, alcohol, or illicit drugs. She is a lifelong nonsmoker. Code status full code Smoking status: Never smoker Second hand tobacco smoke exposure: No Alcohol intake: never Substance use: never Gender identity (if verbalized by the patient): Female Spiritual care concerns: No Course Vital Signs Vital signs: Vital Signs Temperature 97.9 F 10/06/21 17:26 Pulse Rate 114 H 10/06/21 17:26 Respiratory Rate 14 10/06/21 17:26 Blood Pressure 164/96 H 10/06/21 17:26 Pulse Oximetry 100 10/06/21 17:26 Oxygen Delivery Room Air 10/06/21 17:26 Temperature 97.9 F 10/06/21 17:26 Pulse Rate 114 H 10/06/21 17:26 Respiratory Rate 14 10/06/21 17:26 Blood Pressure 164/96 H 10/06/21 17:26 Pulse Oximetry 100 10/06/21 17:26 Oxygen Delivery Room Air 10/06/21 17:26 MDM - Abdominal Pain Lab Data Result diagrams: 10/06/21 18:03 10/06/21 18:03 Labs: Lab Results 10/06/21 10/06/21 Range/Units 18:03 18:03 WBC 7.8 (4.5-10.0) K/mm3 RBC 4.57 (4.2-5.4) M/mm3 Hgb 7.6 L (12.0-15.0) g/dL Hct 30.3 L (37.0-47.0) % MCV 66.3 L (80-100) fl MCH 16.6 L (26-34) pg MCHC 25.1 L (32-36) g/dl RDW 19.8 H (11.5-14.5) % Plt Count 356 (150-375) k/mm3 MPV 8.8 (7.4-10.4) fl Immature Gran % (Auto) 0.3 (0-0.5) % Neut % (Auto) 77.7 H (45.5-73.1) % Lymph % (Auto) 13.9 L (18.3-44.2) % [place] % (Auto) 7.2 (2.6-8.5) % Eos % (Auto) 0.5 (0-4.4) % Baso % (Auto) 0.4 (0.2-1.2) % Lymph # (Auto) 1.08 (0.9-3.2) K/mm3 [place] # (Auto) 0.6 (0.1-0.6) K/mm3 Eos # (Auto) 0.0 (0-0.3) K/mm3 Baso # (Auto) 0.0 (0.0-0.1) K/mm3 Abs Immat Gran (auto) 0.02 (0.00-0.031) K/mm3 Absolute Neuts (auto) 6.0 (1.3-6.7) K/mm3 Absolute Nucleated RBC 0.0 (0.0-0.012) K/mm3 Nucleated RBC % 0.0 (0.0-0.2) % Platelet Estimate Adequate (Adequate) Hypochromasia 2+ (NORMAL) Anisocytosis 1+ (NORMAL) Microcytosis 1+ (NORMAL) Sodium 140 (137-145) mmol/L Potassium 3.7 (3.4-5.0) mmol/L Chloride 106 (98-107) mmol/L Carbon Dioxide 27 (22-30) mmol/L Anion Gap 7 L (8-16) mmol/L BUN 7 (7-17) mg/dL Creatinine 0.50 L (0.7-1.0) mg/dL Estim Creat Clear Calc 173 ml/min Estimated GFR > 60 (59 - ) Glucose 103 (65-110) mg/dL Calcium 8.0 L (8.4-10.2) mg/dL Total Bilirubin 0.4 (0.2-1.3) mg/dL AST 28 (14-36) U/L ALT 15 (6-35) U/L Alkaline Phosphatase 101 (38-126) U/L Total Protein
--- NOTE | 2021-10-06 17:35 | ED.ABDPAIN ---
HPI - Abdominal Pain General Chief Complaint: Abdominal Pain <Pao Cezar Nolascojoyce WHALEN, DO - Last Filed: 10/06/21 19:24> Stated Complaint: abd pain <Pao Cezar Arteaga MARLEE, DO - Last Filed: 10/06/21 19:24> Time Seen by Provider: 10/06/21 17:29 <Pao Cezar Nolascover MARLEE, DO - Last Filed: 10/06/21 19:24> History of Present Illness HPI narrative: Pt presents with intermittent upper abdominal and right back pain for the last couple of days. Pt feels like it starts after she eats and is crampy and she feels bloated and nauseated but doesn't vomit. The pain lasts for some time and then resolves but the pain ahs persisted for several hours today. Pt denies fever or urinary synptoms or diarrhea. <Pao Cezar Nolascover MARLEE, DO - Last Filed: 10/06/21 19:24> Pt presents with intermittent upper abdominal and right back pain for the last couple of days. Pt feels like it starts after she eats and is crampy and she feels bloated and nauseated but doesn't vomit. The pain lasts for some time and then resolves but the pain has persisted for several hours today. Pt denies fever or urinary synptoms or diarrhea. <Denia Page MD - Last Filed: 10/06/21 19:22> Related Data Home Medications: Home Medications Medication Instructions Recorded Confirmed albuterol sulfate 90 mcg/actuation 2 puff inhalation QID PRN Wheezing 07/07/21 aerosol inhaler montelukast 10 mg tablet 10 mg PO DAILY 07/07/21 (Singulair) <Pao Cezar Nolascover MARLEE, DO - Last Filed: 10/06/21 19:24> Allergies/Adverse Reactions: Allergies Allergy/AdvReac Type Severity Reaction Status Date / Time morphine Allergy Unknown Itching Verified 07/07/21 12:00 <Pao Cezar Chandler MARLEE, DO - Last Filed: 10/06/21 19:24> Review of Systems Review of Systems: All systems reviewed & are unremarkable except as noted in HPI and below <Pao Cezar Chandler MARLEE, DO - Last Filed: 10/06/21 19:24> PMFSH Past Medical History Medical History: Medical History Anemia Asthma Morbid obesity <Pao Cezar Arteaga III, DO - Last Filed: 10/06/21 19:24> Surgical History Surgical History: Surgical History H/O section H/O gastric bypass Hx of appendectomy Hx of cholecystectomy <Pao Cezar Arteaga III, DO - Last Filed: 10/06/21 19:24> Family History Family History: Family History Father Diabetes mellitus Hypertension Mother Hypertension Family history of elevated blood lipids Other Family history of chronic obstructive pulmonary disease <Pao Cezar Arteaga III, DO - Last Filed: 10/06/21 19:24> Social History Social History: Social History Social History: The patient is a lifelong nonsmoker. She lives with the 1 child that she has. She only has the 1 child. The patient does not have a durable power traffic law attorney for healthcare. The patient works for for the [employer]. She denies any marijuana, alcohol, or illicit drugs. She is a lifelong nonsmoker. Code status full code Smoking status: Never smoker Second hand tobacco smoke exposure: No Alcohol intake: never Substance use: never Gender identity (if verbalized by the patient): Female Spiritual care concerns: No <Pao Cezar Arteaga III, DO - Last Filed: 10/06/21 19:24> Exam Const: General: healthy appearing <Pao Cezar Arteaga III, DO - Last Filed: 10/06/21 19:24> Nutritional Appearance: obese <Pao Cezar Arteaga III, DO - Last Filed: 10/06/21 19:24> Orientation/consciousness: patient oriented x3 <Pao Cezar Arteaga III, DO - Last Filed: 10/06/21 19:24> Limitations: no limitations <Pao Cezar Arteaga III, DO - Last Filed: 10/06/21 19:24> Eyes: Conjunctivae: conjunctivae normal <Pao Cezar Arteaga III, DO - Last Filed: 10/06/21 19:24>
[2021-10-06] MEDS: SODIUM CHLORIDE 0.9% IV 1,000 ML 999 ML IV CONT (17:55)
[2021-10-06] MEDS: fentaNYL CITRATE INJ (*CRX) 100 MCG/2 ML VIAL 50 MCG IV PUSH (17:56)
[2021-10-06] MEDS: ONDANSETRON INJ 4 MG/2 ML VIAL IV PUSH (17:56)
[2021-10-06 18:08] LABS: Basophils Percent Auto 0.4 % (0.2-1.2); Eosinophils Percent Auto 0.5 % (0-4.4); Hematocrit 30.3 % (37.0-47.0); Hemoglobin 7.6 g/dL (12.0-15.0); Immature Granulocyte Absolute 0.02 K/mm3 (0.00-0.031); Immature Granulocyte Percent A 0.3 % (0-0.5); Lymphocytes Absolute Auto 1.08 K/mm3 (0.9-3.2); Lymphocytes Percent Auto 13.9 % (18.3-44.2); Mean Corpuscular HGB Conc 25.1 g/dl (32-36); Mean Corpuscular Hemoglobin 16.6 pg (26-34); Mean Corpuscular Volume 66.3 fl (80-100); Mean Platelet Volume 8.8 fl (7.4-10.4); Monocytes Absolute Auto 0.6 K/mm3 (0.1-0.6); Monocytes Percent Auto 7.2 % (2.6-8.5); Neutrophils Percent Auto 77.7 % (45.5-73.1); Platelet Count Result 356 k/mm3 (150-375); Red Blood Count 4.57 M/mm3 (4.2-5.4); Red Cell Distribution Width 19.8 % (11.5-14.5); White Blood Count 7.8 K/mm3 (4.5-10.0)
[2021-10-06 18:17] LABS: Alanine Aminotransferase 15 U/L (6-35); Albumin Level 3.8 g/dL (3.5-5.1); Alkaline Phosphatase 101 U/L (38-126); Anion Gap 7 mmol/L (8-16); Aspartate Amino Transferase 28 U/L (14-36); Bilirubin,Total 0.4 mg/dL (0.2-1.3); Blood Urea Nitrogen 7 mg/dL (7-17); Carbon Dioxide 27 mmol/L (22-30); Chloride 106 mmol/L (98-107); Estimated CRCL calculation 173 ml/min; Estimated Glomerular Filt Rate > 60; Glucose 103 mg/dL (65-110); Lipase 61 U/L (23-300); Potassium 3.7 mmol/L (3.4-5.0); Sodium 140 mmol/L (137-145)
[2021-10-06 18:22] LABS: Anisocytosis 1+ (NORMAL); Hypochromasia 2+ (NORMAL); Microcytosis 1+ (NORMAL); Platelet Estimate Adequate (Adequate)
[2021-10-06 20:20] LABS: SPREG INTERNAL CONTROL Positive; Serum Qual hCG Negative
[2021-10-06 20:35] LABS: Appearance Urine Clear (Clear); Bilirubin Urine 1+ (Negative); Blood Urine 3+ (Negative); Color Urine Yellow (Yellow); Glucose Urine UA Negative (Negative); Ketones Urine 1+ mg/dL (Negative); Leukocyte Esterase Ur Trace LEU/UL (Negative); Nitrate Urine Negative (Negative); Protein Urine Trace mg/dL (Negative)
[2021-10-06 20:48] LABS: Mucus Urine Few /lpf; RBC Urine 21-50 /hpf (0-2); Squamous Epithelial Cell Urine Moderate /hpf (Few); WBC Urine 0-3 /hpf
[2021-10-06 20:55] LABS: Add Urine Microscopic? YES
[2021-10-06] MEDS: fentaNYL CITRATE INJ (*CRX) 100 MCG/2 ML VIAL 50 MCG IM (22:38)
== END 2021-10-06 23:26 | disposition home or self-care (01) ==
PROVIDERS: Emergency Medicine; Emergency Provider Emergency Medicine; PCP Internal Medicine
DX: R10.11 Right upper quadrant pain (principal); J45.909 Unspecified asthma, uncomplicated; D64.9 Anemia, unspecified
CPT/HCPCS: 36415; 74177; 80053; 81001; 81025; 83690; 84703; 85025; 96361; 96372; 96374; 96375; 99284; J2405; J3010; J7030; Q9967

== ENCOUNTER 2023-07-02 07:18 | Emergency (ER) | payer OTHER, SELFPAY ==
[2023-07-02 07:23] VITALS: BP 202/112; PULSE 103; RESP 18; TEMP 36.9; O2SAT 99
[2023-07-02] MEDS: ACETAMINOPHEN 500 MG TABLET 1000 MG PO (08:02)
[2023-07-02] MEDS: CYCLOBENZAPRINE HCL 5 MG TABLET PO (08:03)
[2023-07-02] MEDS: LIDOCAINE 5% PATCH 1 PATCH TRANSDERM (08:03)
[2023-07-02 08:38] VITALS: BP 150/98; PULSE 84; RESP 18; O2SAT 100
--- NOTE | 2023-07-02 09:36 | ED.BACK ---
HPI - Back Pain/Injury General Chief Complaint: Back Pain/Injury Stated Complaint: RIght side pain, knee, hip back Time Seen by Provider: 07/02/23 07:22 History of Present Illness HPI Narrative: This is a 47-year-old female, with history of right-sided sciatica, who presents to the emergency department complaining of right low back pain and right leg pain for the past day. 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 On arrival to her destination, she felt dull and shooting right low back pain rated 6/10. This gradually improved with rest, though recurred on the trip back home. Today she complains of the same pain rated 7/10. She denies loss of sensation in the groin, loss of bowel/bladder control, fevers with severe back pain or leg weakness. Related Data Home Medications Medication Instructions Recorded Confirmed albuterol sulfate 90 mcg/actuation 2 puff inhalation QID PRN Wheezing 07/07/21 aerosol inhaler montelukast 10 mg tablet 10 mg PO DAILY 07/07/21 (Singulair) Allergies Allergy/AdvReac Type Severity Reaction Status Date / Time morphine Allergy Unknown Itching Verified 07/02/23 07:29 Review of Systems Review of Systems: CONSTITUTIONAL: Denies fever, chills, or sweats. EYES: Denies visual changes, redness, or discharge. ENT: Denies rhinorrhea, congestion, sore throat, or otalgia. CARDIOVASCULAR: Denies chest pain, palpitations, or edema. RESPIRATORY: Denies cough or dyspnea. GASTROINTESTINAL: Denies abdominal pain, nausea, vomiting, or diarrhea. GENITOURINARY:. Denies dysuria or hematuria. SKIN: Denies rash or itching. MUSCULOSKELETAL: Low back pain and left leg pain Denies myalgia. NEUROLOGIC: Denies headache, numbness, dizziness, or weakness. PSYCHIATRIC: Denies anxiety or depression. [facility]LY [facility] Past Medical History Medical History Anemia Asthma Morbid obesity Surgical History Surgical History H/O section H/O gastric bypass Hx of appendectomy Hx of cholecystectomy Family History Family History Father Diabetes mellitus Hypertension Mother Hypertension Family history of elevated blood lipids Other Family history of chronic obstructive pulmonary disease Social History Social History Social History: The patient is a lifelong nonsmoker. She lives with the 1 child that she has. She only has the 1 child. The patient does not have a durable power disability attorney for healthcare. The patient works for for the [employer]. She denies any marijuana, alcohol, or illicit drugs. She is a lifelong nonsmoker. Code status full code Smoking status: Never smoker Second hand tobacco smoke exposure: No Alcohol intake: never Substance use: never Gender identity (if verbalized by the patient): Female Spiritual care concerns: No Exam Narrative: GENERAL: Well-developed, well-nourished, and in no acute distress. HEAD: Normocephalic, atraumatic. EYES: PERRLA and EOMI. NECK: Supple. No midline spine tenderness to palpation, step-off or crepitus CHEST: Clear to auscultation. No respiratory distress. No wheezes rales or rhonchi HEART: Regular rate and rhythm. No murmur heard. Normal peripheral pulses. ABDOMEN: Soft, nontender, nondistended, normal active bowel sounds. BACK: No midline spine tenderness to palpation, no step-off or crepitus. Right paraspinal tenderness to palpation at the lumbar spine with spasm from L1 to L4 EXTREMITIES: Normal range of motion. No edema. SKIN: Warm, dry, no rash. NEURO: Alert and oriented x3. No focal deficit. Moving all 4 limbs spontaneously. Strength 5/5 in all extremities PSYCH: Normal mood and affect. Course Course Emergency
[2023-07-02] MEDS: KETOROLAC 30 MG/ML VIAL (*BKC) 15 MG IM (09:41)
[2023-07-02 10:46] VITALS: BP 151/98; PULSE 80; RESP 18; TEMP 36.6; O2SAT 100
== END 2023-07-02 10:48 | disposition home or self-care (01) ==
PROVIDERS: Emergency Provider Preventive Medicine Aerospace Medicine; PCP Internal Medicine
DX: M54.41 Lumbago with sciatica, right side (principal); M54.16 Radiculopathy, lumbar region; M62.830 Muscle spasm of back; J45.909 Unspecified asthma, uncomplicated; E66.01 Morbid (severe) obesity due to excess calories; Z68.42 Body mass index [BMI] 45.0-49.9, adult; Z98.84 Bariatric surgery status; Z86.2 Personal history of diseases of the blood and blood-forming organs and certain disorders involving the immune mechanism; Z90.49 Acquired absence of other specified parts of digestive tract
CPT/HCPCS: 96372; 99283; A9270; J1885

== ENCOUNTER 2023-10-24 12:33 | Emergency (ER) | payer OTHER, SELFPAY ==
--- NOTE | ~2023-10-24 | XR_ITS ---
EXAMINATION: XR chest 1V portable DATE: 10/24/2023 15:57 INDICATION: Coughing. Body aches. TECHNIQUE: frontal view of the chest was obtained. COMPARISON: Chest radiograph dated 08/01/2021 FINDINGS: The lungs are clear with no focal airspace opacities, pulmonary edema, pleural effusion or pneumothor ax. The cardiomediastinal silhouette is normal. Visualized bones and soft tissues are unremarkable. IMPRESSION: 1. Normal chest radiograph. Reviewed, dictated and finalized at location A. IMPRESSION: 1. Normal chest radiograph.
[2023-10-24 12:44] VITALS: BP 159/105; PULSE 97; RESP 18; TEMP 36.6; O2SAT 100
[2023-10-24 13:51] VITALS: O2SAT 98
--- NOTE | 2023-10-24 13:52 | PC.NURSE ---
Pt states she has asthma, she had no relief from inhaler this morning. Voices concerns of COVID, states several coworkers have COVID
[2023-10-24 14:31] LABS: Influenza A QL RT-PCR Negative (Negative); Influenza B QL RT-PCR Negative (Negative); RSV RNA, RT-PCR Negative (Negative); SARS-CoV-2 RNA PCR Negative (Negative)
--- NOTE | 2023-10-24 15:15 | PC.NURSE ---
Continue to wait for ED MD to see pt
--- NOTE | 2023-10-24 15:41 | ED.URI ---
HPI - URI/Sore Throat General Chief Complaint: Upper Respiratory Infection Stated Complaint: coughing, URI symptoms Time Seen by Provider: 10/24/23 15:40 Source: patient Mode of arrival: ambulatory Limitations: no limitations History of Present Illness HPI Narrative: 48 YEARS OLD FEMALE DROVE HERSELF TO THE EMERGENCY ROOM COMPLAINING OF RUNNY NOSE, SNEEZING, POSTNASAL DISCHARGE, INTERMITTENT COUGHING, HEADACHE FOR THE LAST 2 DAYS. PATIENT DENIES SICK CONTACT. HISTORY OF ASTHMA. Related Data Home Medications Medication Instructions Recorded Confirmed albuterol sulfate 90 mcg/actuation 2 puff inhalation QID PRN Wheezing 07/07/21 aerosol inhaler montelukast 10 mg tablet 10 mg PO DAILY 07/07/21 (Singulair) Allergies Allergy/AdvReac Type Severity Reaction Status Date / Time morphine Allergy Unknown Itching Verified 07/02/23 07:29 Review of Systems Review of Systems: All systems reviewed & are unremarkable except as noted in HPI and below PMFSH Past Medical History Medical History Anemia Asthma Morbid obesity Surgical History Surgical History H/O section H/O gastric bypass Hx of appendectomy Hx of cholecystectomy Family History Family History Father Diabetes mellitus Hypertension Mother Hypertension Family history of elevated blood lipids Other Family history of chronic obstructive pulmonary disease Social History Social History Social History: The patient is a lifelong nonsmoker. She lives with the 1 child that she has. She only has the 1 child. The patient does not have a durable power contracts attorney for healthcare. The patient works for for the [employer]. She denies any marijuana, alcohol, or illicit drugs. She is a lifelong nonsmoker. Code status full code Smoking status: Never smoker Second hand tobacco smoke exposure: No Alcohol intake: never Substance use: never Gender identity (if verbalized by the patient): Female Spiritual care concerns: No Exam Narrative: GENERAL APPEARANCE: WELL-DEVELOPED, WELL-NOURISHED SKIN: NORMAL COLOR HEAD: NORMOCEPHALIC, NONTRAUMATIC EYES: CLEAR CONJUNCTIVA ENT: OROPHARYNX NORMAL, EARS NORMAL, NOSE NORMAL NECK: SUPPLE, NONTENDER CHEST AND RESPIRATORY: AIRWAY PATENT, NO RESPIRATORY DISTRESS, NO ACCESSORY MUSCLE USE HEART: REGULAR RATE/RHYTHM ABDOMEN: SOFT, NONTENDER, NO ORGANOMEGALY, QUIET BOWEL SOUNDS VASCULAR: NORMAL PERIPHERAL PULSES, NORMAL CAPILLARY REFILL. MUSCULOSKELETAL: NORMAL RANGE OF MOTION, NONTENDER BACK NEUROLOGIC: ALERT AND ORIENTED ?3, REPAIRER WOOD FURNITURE IS NORMAL TESTED, NO GROSS MOTOR DEFICIT Course Vital Signs Vital signs: Vital Signs Temperature 36.6 C 10/24/23 12:44 Pulse Rate 97 10/24/23 12:44 Respiratory Rate 18 10/24/23 12:44 Blood Pressure 159/105 H 10/24/23 12:44 Pulse Oximetry 100 10/24/23 12:44 Temperature 36.6 C 10/24/23 12:44 Pulse Rate 97 10/24/23 12:44 Respiratory Rate 18 10/24/23 12:44 Blood Pressure 159/105 H 10/24/23 12:44 Pulse Oximetry 98 10/24/23 13:51 Oxygen Delivery Room Air 10/24/23 13:51 MDM - URI/Sore Throat MDM Narrative Medical decision making narrative: PATIENT PRESENTS WITH UPPER RESPIRATORY VIRAL INFECTION SYMPTOMS VITAL SIGNS SHOWED BLOOD PRESSURE OF 159/105 PHYSICAL EXAMINATION REMARKABLE FOR INTERMITTENT COUGHING OTHERWISE NORMAL PATIENT TESTED NEGATIVE FOR COVID, FLU AND RSV. CHEST X-RAY SHOWED NO ACUTE ABNO
== END 2023-10-24 16:29 | disposition home or self-care (01) ==
LOC: ANHED 16:09
PROVIDERS: Emergency Provider Emergency Medicine; PCP Internal Medicine
DX: J06.9 Acute upper respiratory infection, unspecified (principal); Z20.822 Contact with and (suspected) exposure to COVID-19; J45.909 Unspecified asthma, uncomplicated; E66.01 Morbid (severe) obesity due to excess calories; Z68.38 Body mass index [BMI] 38.0-38.9, adult; Z98.84 Bariatric surgery status; Z86.2 Personal history of diseases of the blood and blood-forming organs and certain disorders involving the immune mechanism; Z90.49 Acquired absence of other specified parts of digestive tract
CPT/HCPCS: 71045; 87637; 99283

== ENCOUNTER 2023-10-28 00:40 | Emergency (ER) | payer OTHER, SELFPAY ==
[2023-10-28] VITALS (9 sets, daily range): BP systolic 147–202; BP diastolic 76–113; PULSE 81–95; RESP 14–22; TEMP 36.6; O2SAT 97–100
[2023-10-28 05:24] LABS: BEDSIDEPREGUCG Negative
[2023-10-28 05:26] LABS: Basophils Percent Auto 0.4 % (0.2-1.2); Eosinophils Percent Auto 0.4 % (0-4.4); Hematocrit 30.7 % (37.0-47.0); Hemoglobin 8.8 g/dL (12.0-15.0); Immature Granulocyte Absolute 0.02 K/mm3 (0.00-0.031); Immature Granulocyte Percent A 0.4 % (0-0.5); Lymphocytes Absolute Auto 0.87 K/mm3 (0.9-3.2); Lymphocytes Percent Auto 19.5 % (18.3-44.2); Mean Corpuscular HGB Conc 28.7 g/dl (32-36); Mean Corpuscular Hemoglobin 20.2 pg (26-34); Mean Corpuscular Volume 70.4 fl (80-100); Mean Platelet Volume 8.6 fl (7.4-10.4); Monocytes Absolute Auto 0.6 K/mm3 (0.1-0.6); Monocytes Percent Auto 14.3 % (2.6-8.5); Neutrophils Absolute Auto 2.9 K/mm3 (1.3-6.7); Nucleated Red Blood Cells Perc 0.4 % (0.0-0.2); Platelet Count Result 205 k/mm3 (150-375); Red Blood Count 4.36 M/mm3 (4.2-5.4); Red Cell Distribution Width 19.9 % (11.5-14.5); White Blood Count 4.5 K/mm3 (4.5-10.0)
[2023-10-28 05:33] LABS: Add Urine Microscopic? YES; Appearance Urine Cloudy (Clear); Bacteria Urine 4+ /hpf; Bilirubin Urine Negative (Negative); Blood Urine Negative (Negative); Color Urine Yellow (Yellow); Glucose Urine UA Negative (Negative); Ketones Urine Trace mg/dL (Negative); Leukocyte Esterase Ur 1+ LEU/UL (Negative); Nitrate Urine Positive (Negative); Protein Urine Trace mg/dL (Negative); Specific Grav Ur 1.025 (1.001-1.035); Squamous Epithelial Cell Urine None Seen /hpf (Few)
[2023-10-28 05:37] LABS: Alanine Aminotransferase 13 U/L (6-35); Albumin Level 3.8 g/dL (3.5-5.1); Alkaline Phosphatase 97 U/L (38-126); Anion Gap 10 mmol/L (4-12); Aspartate Amino Transferase 25 U/L (14-36); Bilirubin,Total 0.8 mg/dL (0.2-1.3); Blood Urea Nitrogen 6 mg/dL (7-17); Calcium 8.7 mg/dL (8.4-10.2); Carbon Dioxide 26 mmol/L (22-30); Chloride 100 mmol/L (98-107); Estimated CRCL calculation 168 ml/min; Estimated Glomerular Filt Rate > 60; Glucose 106 mg/dL (65-110); Lipase 46 U/L (23-300); Potassium 3.3 mmol/L (3.4-5.0); Sodium 136 mmol/L (137-145)
[2023-10-28 05:59] LABS: Anisocytosis 1+; Hypochromasia 2+; Platelet Estimate Decreased (Adequate)
[2023-10-28 06:00] LABS: Schistocytes None Seen; Target Cells 1+
--- NOTE | 2023-10-28 07:25 | ED.GENADULT ---
HPI - General Adult General Chief complaint: Abdominal Pain Stated complaint: abd pain Time Seen by Provider: 10/28/23 06:50 History of Present Illness HPI narrative: 48-year-old female presented to the emergency department for evaluation for left upper quadrant pain. Patient states yesterday she was having stomach cramping which he thought was secondary to her being hungry. Patient states she began to eat but then began having worsening cramping. Patient states then she began having and increase in the anxiety and had increased shortness of breath and worsening pain so patient present to the emergency department for evaluation. At time of evaluation patient states that the abdominal discomfort has resolved. Patient does still complain a headache but states the shortness breath has resolved. Patient was hypertensive in the emergency department but states that she has been hypertensive at her last doctor's visit but they wanted her to help control her blood pressure by diet. Related Data Home Medications Medication Instructions Recorded Confirmed albuterol sulfate 90 mcg/actuation 2 puff inhalation QID PRN Wheezing 07/07/21 aerosol inhaler montelukast 10 mg tablet 10 mg PO DAILY 07/07/21 (Singulair) Allergies Allergy/AdvReac Type Severity Reaction Status Date / Time morphine Allergy Unknown Itching Verified 10/28/23 00:45 Review of Systems Review of Systems: All systems reviewed & are unremarkable except as noted in HPI and below PMFSH Past Medical History Medical History Anemia Asthma Morbid obesity Surgical History Surgical History H/O section H/O gastric bypass Hx of appendectomy Hx of cholecystectomy Family History Family History Father Diabetes mellitus Hypertension Mother Hypertension Family history of elevated blood lipids Other Family history of chronic obstructive pulmonary disease Social History Social History Social History: The patient is a lifelong nonsmoker. She lives with the 1 child that she has. She only has the 1 child. The patient does not have a durable power compressor operator for healthcare. The patient works for for the [employer]. She denies any marijuana, alcohol, or illicit drugs. She is a lifelong nonsmoker. Code status full code Smoking status: Never smoker Second hand tobacco smoke exposure: No Alcohol intake: never Substance use: never Gender identity (if verbalized by the patient): Female Spiritual care concerns: No Exam Narrative: APPEARANCE: Well appearing, no pain, no distress, well-nourished. HEAD: normocephalic, atraumatic. EYES: PERRLA/EOMI, conjunctivae clear. NOSE: Normal no drainage EARS:TMS clear with good light reflex. THROAT: Pharynx clear, no exudate. NECK: Supple. No adenopathy, no masses. RESPIRATORY: Airway patent, respirations nonlabored. Clear to auscultation bilaterally, no rales, rhonchi, wheezing. CARDIOVASCULAR: Regular rate and rhythm without murmurs rubs or gallops. ABDOMINAL: Soft, nontender, nondistended, normal bowel sounds MUSCULOSKELETAL: Moves all extremities. Strength/ROM intact, No edema, No calf tenderness. NEURO: Alert. Cranial nerves II through XII intact. Grossly intact Course Vital Signs Vital signs: Vital Signs Temperature 97.8 F 10/28/23 00:43 Pulse Rate 92 10/28/23 00:43 Respiratory Rate 18 10/28/23 00:43 Blood Pressure 153/97 H 10/28/23 00:43 Pulse Oximetry 100 10/28/23 00:43 Oxygen Delivery Room Air 10/28/23 00:43 Temperature 97.9 F 10/28/23 07:11 Pulse Rate 84 10/28/23 08:47 Respiratory Rate 18 10/28/23 08:47 Blood Pressure 153/82 H 10/28/23 08:47 Pulse Oximetry 99 10/28/23 08:47 Oxygen Delivery Room Air 10/28/23 00:43
[2023-10-28] MEDS: SODIUM CHLORIDE 0.9% IV 1,000 ML 999 ML IV CONT (07:42)
[2023-10-28] MEDS: fentaNYL CITRATE INJ (*CRX) 100 MCG/2 ML VIAL 50 MCG IV PUSH (07:44)
[2023-10-28] MEDS: hydrALAZINE HCL 20 MG/ML VIAL 10 MG IV PUSH (07:49)
== END 2023-10-28 08:49 | disposition home or self-care (01) ==
PROVIDERS: Student in an Organized Health Care Education/Training Program; Emergency Provider Emergency Medicine; PCP Internal Medicine
DX: K29.70 Gastritis, unspecified, without bleeding (principal); N39.0 Urinary tract infection, site not specified; I10 Essential (primary) hypertension; J45.909 Unspecified asthma, uncomplicated; E66.01 Morbid (severe) obesity due to excess calories; Z68.39 Body mass index [BMI] 39.0-39.9, adult; D64.9 Anemia, unspecified; Z98.84 Bariatric surgery status; Z90.49 Acquired absence of other specified parts of digestive tract; Z79.1 Long term (current) use of non-steroidal anti-inflammatories (NSAID); Z79.899 Other long term (current) drug therapy
CPT/HCPCS: 36415; 80053; 81001; 81025; 83690; 85025; 87077; 87086; 87088; 87186; 96365; 96375; 99284; J0360; J0696; J3010; J7030

== ENCOUNTER 2025-01-15 07:25 | Emergency (ER) | payer BC, SELFPAY ==
--- NOTE | ~2025-01-15 | CT_ITS ---
Clinical history:Fell one week ago. EXAM:CT hip left without contrast TECHNIQUE:Multiple contiguous axial images of the left hip were obtained without contrast. Sagittal and coronal reformatted images were obtained. Comparisons:CT abdomen pelvis 10/06/2021 FINDINGS: No convincing CT evidence for an acute fracture. Moderate degenerative change about the left hip similar to the study from 10/06/2021. No sclerotic or destructive bone lesion identified. IMPRESSION: 1.No convincing CT evidence for an acute fracture. If symptoms persist or worsen, consider an MRI for further assessment. 2. Moderate degenerative change about the left hip similar to the study from 10/06/2021. Reviewed, dictated and finalized at location Q. NG SERVICE SUPERVISOR IMPRESSION: 1.No convincing CT evidence for an acute fracture. If symptoms persist or worse n, consider an MRI for further assessment. 2. Moderate degenerative change about the left hip similar to the study from .
--- NOTE | ~2025-01-15 | CT_ITS ---
EXAMINATION: CT cervical spine wo con DATE: 01/15/2025 13:02 INDICATION: Fall TECHNIQUE: Computed tomography (CT) of the cervical spine was performed without intravenous contrast. Automated exposure control and iterative reconstruction technique were employed. The dose-length product was 524.10 mGy-cm. COMPARISON: None FINDINGS: Moderate cervical kyphosis. Vertebral body heights are normal. No fracture. Multilevel mild disc height loss throughout the cervical spine sparing C4-C5. Small posterior disc ossified complexes resulting in mild central canal stenosis at C3-C4 and disc bulge contributing to additional mild central canal stenosis at C5-C6. Multilevel minimal to mild cervical uncovertebral osteoarthritis. There is also multilevel cervical facet osteoarthritis, moderate severity on the right at C2-C3 and mild throughout the remainder of the cervical spine. This contributes to mild neural from stenosis on the right at C2-C3. Cervical soft tissues are unremarkable. Visualized upper lungs are clear. IMPRESSION: 1. Moderate cervical kyphosis which could be positional or due to muscle spasm. No acute osseous abnormality. 2. Mild cervical spondylosis. Reviewed, dictated and finalized at location A. ODS EXAMINER
--- NOTE | ~2025-01-15 | CT_ITS ---
EXAMINATION: CT brain wo con DATE: 01/15/2025 13:02 INDICATION: Fall TECHNIQUE: Computed tomography (CT) of the head was performed without intravenous contrast. Sagittal and coronal reconstructions were performed. The mA was adjusted according to patient size. Iterative reconstruction technique was employed. The dose-length product was 605.33 mGy-cm. COMPARISON: None FINDINGS: No fracture. Small to moderate-sized region of encephalomalacia right frontal lobe consistent with sequela of old infarct. No acute intracranial hemorrhage, acute infarction or abnormal extra axial fluid collection. Ventricles are normal and symmetric. No mass/mass effect. The orbits and mastoid air cells are normal. Large mucous retention cyst in the left maxillary sinus. IMPRESSION: 1. No fracture or acute intracranial process. 2. 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 Reviewed, dictated and finalized at location A. ECT SPECIALIST
--- NOTE | ~2025-01-15 | CT_ITS ---
EXAMINATION: CT lumbar spine wo con COMPARISON: None HISTORY: fall X 1 WK AGO TECHNIQUE: Axial images were obtained through the spine without IV contrast. Coronal, sagittal reconstruction images were obtained from the axial views. CT scan performed using dose optimization techniques including the following automated exposure control; adjustment of mA and/or kV; use of iterative reconstruction technique. Automatic exposure control was used to reduce radiation dose. Permanent radiation dose record is archived to PACS. FINDINGS: The vertebral heights are intact. No fracture or subluxation. The disc heights are intact. Soft tissues unremarkable. Impression: No acute abnormality. Reviewed, dictated and finalized at location P. P TANK TENDER Impression: No acute abnormality.
--- NOTE | ~2025-01-15 | XR_ITS ---
EXAMINATION: XR knee LT min 4V, 01/15/2025 9:45 ALLOPATHIC DOCTOR HISTORY: fall COMPARISON: No comparisons available. Findings: No acute fracture or malalignment. Severe tricompartmental degenerative changes with large joint effusion Soft tissues unremarkable. Impression: No acute fracture or malalignment. Reviewed, dictated and finalized at location P. PATHIC DOCTOR Impression: No acute fracture or malalignment.
--- OUTSIDE RECORDS SUMMARY | 2025-01-15 07:28 | XMS_ITS | Clinical Summary ---
Author Organization [facility] Address [address] [place] [address] Phone Care Team Providers Care Craps Dealer Name Role Phone Gerald Fregoos MD Unavailable [phone] Ольга Cade MD Primary Care Provider [phone] Allergies Active Allergy Reactions Criticality Noted Date Comments Morphine Itching Low 09/05/2013 Medications montelukast (SINGULAIR) 10 mg tablet Take 10 mg by mouth. 7 Active albuterol HFA (PROVENTIL HFA,VENTOLIN HFA,PROAIR HFA) 90 mcg/actuation inhaler Inhale 2 puffs every 6 hours. Active predniSONE (DELTASONE) 20 mg tablet 06/19/2015Prednis one, po solid 20 mg TabletPOdaily prn for [id number]/29/2013P rescription 4 Active meloxicam (MOBIC) 15 mg tablet Take 15 mg by mouth daily. Active fluticasone propionate (FLONASE) 50 mcg/actuation nasal spray USE 2 SPRAY(S) IN EACH NOSTRIL ONCE DAILY NEEDED 9 Active HYDROcodone-ac etaminophen (NORCO) 5-325 mg per tablet hydrocodone 5 mg-acetaminophen 325 mg tablet 4 Active ibuprofen (ADVIL,MOTRIN) suspension 100 mg/5 mL Take 600 mg by mouth every 6 (six) hours as needed 9 Active TiZANidine (ZANAFLEX) 4 mg capsule tizanidine 4 mg capsule Active Active Problems Problem Noted Date Diagnosed Date Iron deficiency anemia, unspecified 12/25/2015 Menometrorrhagia 12/15/2015 Immunizations Immunization Administration Dates Next Due Influenza, Unspecified 02/04/2019 Medical History Medical History Date Comments Menometrorrhagia 04/19/2019 Social History Tobacco Use Types Packs/Day Years Used Date Smoking Tobacco: Never Smokeless Tobacco: Never Alcohol Use Standard Drinks/Week Comments No 0 (1 standard drink = 0.6 oz pur e alcohol) Personal Safety Answer Date Recorded Getting School Help Needed Not on file 03/17 Comments Unknown Sex and Gender Information Value Date Recorded Sex Assigned at Not on file Legal Sex Female 8:01 AM [place] [employer] Gender Identity Not on file Sexual Orientation Not on file Last Filed Vital Signs Vital Sign Reading Time Taken Comments Blood Pressure 133/80 08/15/2019 2:46 PM CDT Pulse 99 08/15/2019 2:46 PM CDT Temperature 37 C (98.6 F) 08/01/2019 1:18 PM CDT Respiratory Rate 20 08/01/2019 1:18 PM CDT Oxygen Saturation 99% 08/15/2019 2:46 PM CDT Inhaled Oxygen Concentration - - Weight 135.7 kg (299 lb 3.2 oz) 08/01/2019 1:18 PM CDT Height 165.1 cm (5' 5) 06/05/2019 9:43 AM CDT Body Mass Index 49.79 06/05/2019 9:43 AM CDT Plan of Treatment Not on [place] [address] [facility] PPO Care Teams Craps Dealer Relationship Specialty Start Date End Date Ольга Cade MD [address] [facility] [address] [place] [address] PCP - General Internal Medicine 08/08/19 Gerald Fregoso MD Medical Oncologist/Dental Hygiene Professor Hematology and Oncology 10/24/17
--- OUTSIDE RECORDS SUMMARY | 2025-01-15 07:28 | XMS_ITS | Data Portability ---
Author Organization [facility] Val[facility] Address [address] [place] [address] Assessment No assessment recorded. Plan of Treatment Reminders Order Date Submit Date Provider Last Modified By Organization Details Last Modified Time Details Appointments None recorded. Lab SARS CoV 2 RNA (COVID-19), QL, directory operator-PCR, respiratory specimen - [place] location please 2019 020 [facility] (Lab), [address] [place], [address], 0 20:16:55 Referral None recorded. Procedures None recorded. Surgeries None recorded. Imaging None recorded. Medication Orders None recorded. Patient TargetsNo targets recorded. Patient Instructions Encounter Date Encounter Id Patient Instructions Last Modified By Organization Details Last Modified Time 07/16/2019 [id number] Reviewed the following recommendations: -Stay home and separate from others as much as possible. -Monitor your symptoms and seek medical attention for trouble breathing, persistent chest pain, confusion, or bluish lips or face. -Wear a mask if you must be around other people. -Wash your hands often for 20 seconds with soap and water and clean high-touch surfaces daily -You may discontinue home isolation if your symptoms are improving, it has been 7 days since symptoms started, and you have been fever free for at least 3 days. [email or web address] Not available 07/16/2019 11:59:47 2019 [id number] Reviewed the following recommendations: -Stay home and separate from others as much as possible. -Monitor your symptoms and seek medical attention for trouble breathing, persistent chest pain, confusion, or bluish lips or face. -Wear a mask if you must be around other people. -Wash your hands often for 20 seconds with soap and water and clean high-touch surfaces daily -You may discontinue home isolation if your symptoms are improving, it has been 7 days since symptoms started, and you have been fever free for at least 3 days. [email or web address] Not available 2019 12:18:21 Reason for Referral None Reported. Results Created Date Observation Date Name Description Value Unit Range Abnormal Flag Note LastModifiedBy Organization Detail LastModifiedTime 07/17/19 20 2019 SARS CoV 2 RNA (COVI D-19) , QL, directory operator-P CR, respi rator y speci men sars - cov - 2 PCR NEGATI VE mL Not Available [facility] (Lab) [address] [facility], [place], [address], 07/18/2019 20:16:54 07/17/19 20 2019 SARS CoV 2 RNA (COVI D-19) , QL, directory operator-P CR, respi rator y speci men covidcom1 This assay is desig mike to detec t the RdRp and N genes of SARS- CoV-2 using nucle ic acid ampli ficat ion. A negat mark resul t does not precl ude the possi bilit y of 2019- nCoV infec tion since the adequ acy of sampl e colle ction and/o r low viral burde n may resul t in the prese nce of viral nucle ic acids level s below the jelly tical sensi tivit y of this test metho d. Not Available [facility] (Lab) [address] [facility], [place], [address], 07/18/2019 20:16:54 07/17/19 20 2019 SARS CoV 2 RNA (COVI D-19) , QL, directory operator-P CR, respi rator y speci men covidcom2 Posit mark resul ts are indic ative of the prese nce of SARS- CoV-2 RNA and do not rule out bacte rial infec tion or co-in fecti on with other virus es. Not Available [facility] (Lab) [address] [facility], [place], [address], 07/18/2019 20:16:54 07/17/19 20 2019 SARS CoV 2 RNA (COVI D-19) , QL, directory operator-P CR, respi rator y speci men covidcom3 Test resul ts shoul d be used along with other clini sang obser vatio ns, patie nt histo ry, epide miolo gical infor matio n and labor atory data in jazmin g the diagn osis. Not Available [facility] (Lab) [address] [place], [address], 07/18/2019 20:16:54 07/17/19 20 2019 SARS CoV 2 RNA (COVI D-19) , QL, directory operator-P CR, respi rator y speci men covidcom4 This test has recei selina FDA Emerg ency Use Autho rizat ion and has been verif ied by [facility] . This test is only autho rized for the durat ion of the decla ratio n and the circu mstan kimmy that exist to justi fy the autho rizat ion of the emerg ency use of in vitro diagn ostic tests for the detec tion of SARS- CoV-2 virus and/o r diagn osis of COVID -19 infec tion under secti on 564 (b) (1) of the Act. 11 U.S.C . 360bb b-3 (b) (1), unles s the autho rizat ion is termi nated or revok ed soone r. Not Available [facility] (Lab) [address] [place], [address], 07/18/2019 20:16:54 07/17/19 20 2019 SARS CoV 2 RNA (COVI D-19) , QL, directory operator-P CR, respi rator y speci men covidcom5 [facility] is certi fied under CLIA- 88 as quali fied to perfo rm high compl exity testi ng. This testi ng was perfo rmed in the [facility] [place] [address] (CLIA Licen se #[id number] 5, CAP #[id number], AU-ID #[id number]). Not Available [facility] (Lab) [address] [place], [address], 07/18/2019 20:16:54 07/17/19 20 2019 SARS CoV 2 RNA (COVI D-19) , QL, directory operator-P CR, respi rator y speci men covidcom6 Facts heet for healt hcare provi ders: https ://[employer] .gov/ media /1362 56/do wnloa d Facts heet for patie nts: https ://[employer] .WebTuner/ Geckoboard /1362 57/do wnloa d Not Available [facility] (Lab) [address], [place], [address], 07/18/2019 20:16:54 Result Notes None recorded. Medical Equipment None Reported. Medications Name Sig Start Date Stop Date Status Note LastModified by Organization Details LastModified Time benzonatate 200 mg capsule active Not Available Not Available Not Available ciprofloxacin 500 mg tablet active Not Available Not Available No t Available sulfamethoxazole 800 mg-trimethoprim 160 mg tablet active Not Available Not Availabl e Not Available montelukast 10 mg tablet active Not Available Not Available Not Available methylprednisolone 4 mg tablets in a dose pack active Not Available Not Available No t Available ondansetron 4 mg disintegrating tablet active Not Available Not Available Not Available fluticasone propionate 50 mcg/actuation nasal spray,suspension active Not Available Not Avail able Not Available ProAir HFA 90 mcg/actuation aerosol inhaler active Not Available Not Availa ble Not Available oseltamivir 6 mg/mL oral suspension active Not Available Not Availa ble Not Available Vitals None Recorded Social History None recorded. Functional Status None recorded. Mental Status None recorded. Family History Nothing Reported. Medical History No medical history recorded. Gynecological HistoryNo gynecological history recorded. Obstetrics History GPAL:G 0 P 0 0 0 0 Past Encounters Encounter ID Performer Location Encounter Start Date Encounter Closed Date Diagnosis/Indication Diagnosis SNOMED-CT Code Diagnosis ICD10 Code Diagnosis IMO Codes Diagnosis Note [id number] [facility] [address] [place] [address] 07/16/2019 11:19:14 09/04/2019 03:46:55 [id number] MD Leobardo Joyner tamara [address] [place] [address] 2019 11:20:00 2019 13:23:35 Viral screening 558509365 Z11.59 2019 pt tested positive 06/18/2019 and all s/s have resolved but is required to have 2 negative swabs prior to being allowed to return to [facility] for iron infusions. Health Concerns Section Related Observation LastModified by Organization Detai ls LastModified Time None Recorded Concern Status LastModified by Organization Details LastModified Time None Recorded Advance Directives Directive None Recorded Payers Insurance Date Sequence Insurance Name Policy Number Policy Calderon Covered Member ID Calderon Member ID Guarantor Name 08/14/2023 1 [employer] [id number] Alisa Kiran [id number] Alisa Kiran 08/14/2023 1 [employer] (PPO) [id number] Alisa Kiran [id number] Alisa Kiran Notes Date Note Type Note Provider Name and Address Organization Details Recorded Time 07/16/2019 text/html COVID-19 Symptom s May 2019Reported by Patient COVID ScreeningReported by Patient Lyn good [place] - [facility] 07/16/2019 16:10:35 2019 text/html COVID ScreeningReported by PatientHPIFor onset/duration of fever, patient reportsno fever. For associated symptoms, patient reportsno coughandno shortness of breath. For comorbidities, patient reportsother comorbidities (asthma).Tested positive 06/18/2019 and [facility] is requesting 2 negative swabs prior to allowing her to come for treatment with iron infusion for chronic anemia COVID-19 Symptoms July 2019Reported by PatientUpper Respiratory SymptomsFor contacts and exposure, patient reportsreside in or traveled to areas where widespread community transmission has been reported. For severity, patient reportsno pain. For associated symptoms, patient reportsno sputum production,no wheezing,no runny nose,no vomiting,no diarrhea,no body aches,no nausea,no change in mental status,no hypotension, andno tachycardia.ROS as noted in the HPI Lyn [place], [place] - [facility] 2019 12:26:29 OBGyn Episode No OBEpisode recorded.
--- OUTSIDE RECORDS SUMMARY | 2025-01-15 07:28 | XMS_ITS | Clinical Summary ---
Author Organization [facility] Address [address] [facility] [place] [address] Care Team Providers Care Service Captain Name Role Phone Qiana Willard RN Unavailable [phone] Source Comments [facility],non-owned Affiliates and Associated Physician Practices is amultiple site organization consisting of ambulatory clinics and hospital sitesin [place], [place], [place] and [place]. This disclosure is being madepursuant to the Care Everywhere program and may not contain all information available regarding this patient. Last updated 17.[facility] Allergies Active Allergy Reactions Criticality Noted Date Comments Morphine Itching 09/05/2013 Medications * Be aware that medications may not be up to date on this document. Alwaysverify current medications with the patient. albuterol (PROVENTIL;ARMANDO JAN) (2.5 MG/3ML) 0.083% nebulizer solution Inhale by mouth 4 times daily as needed Reported on 04/27/2016 Active ibuprofen (MOTRIN) 800 MG tablet Take 1 Tab by mouth 3 times daily as needed for Pain. 20 Tab 0 2 Active Additional Information Patient not taking.Reported on 04/27/2016 metroNIDAZOLE (FLAGYL) 500 MG tablet Take 1 Tab by mouth 3 times daily. 42 Tab 0 4 Active Additional Information Patient not taking.Reported on 04/27/2016 doxycycline Monohydrate 100 MG tablet Take 1 Tab by mouth 2 times daily. 28 Tab 0 4 Active Additional Information Patient not taking.Reported on 04/27/2016 hydrocodone-acet aminophen (NORCO) 5-325 MG tablet Take 1-2 Tabs by mouth every 4 hours as needed. 40 Tab 0 4 Active Additional Information Patient not taking.Reported on 04/27/2016 albuterol HFA (PROVENTIL;ARMANDO JAN;PROAIR) 108 (90 BASE) MCG/ACT inhaler Inhale 2 Puffs by mouth every 6 hours as needed Active promethazine (PHENERGAN) 6.25 MG/5ML solution Take 5 mL by mouth nightly as needed (cough) 240 mL 7 Active dextromethorphan (ROBITUSSIN MAXIMUM STRENGTH) 15 MG/5ML syrupIndications :Cough Take 5 mL by mouth every 6 hours as needed for Cough Reasons: Cough 240 mL 7 Active montelukast (SINGULAIR) 10 MG tabletIndication s:Asthma Take 1 Tab by mouth at bedtime Reasons: Asthma 30 Tab 7 Active oseltamivir (TAMIFLU) 75 MG capsule Take 1 Cap by mouth 2 times daily 9 Cap 7 Active Active Problems No known active problems Family History Medical History Relation Name Comments Diabetes Father Cancer - Colon Other maternal great aunt CAD (Coronary Artery Disease) Neg Hx Relation Name Status Comments Father Other maternal great aunt Social History Tobacco Use Types Packs/Day Years Used Date Smoking Tobacco: Never Smokeless Tobacco: Never Alcohol Use Standard Drinks/Week Comments Yes 0.8 (1 standard drink = 0.6 oz p ure alcohol) Comments Unknown Sex and Gender Information Value Date Recorded Sex Assigned at Not on file Legal Sex Female 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 Gender Identity Not on file Sexual Orientation Not on file 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 on file Not on file Not on file Last Filed Vital Signs Vital Sign Reading Time Taken Comments Blood Pressure 123/71 04/27/2016 6:07 PM FIRE LOSS PREVENTION ENGINEER Pulse 105 04/27/2016 6:07 PM FIRE LOSS PREVENTION ENGINEER Temperature 37.3 C (99.1 F) 04/27/2016 6:07 PM FIRE LOSS PREVENTION ENGINEER Respiratory Rate 20 04/27/2016 5:12 PM FIRE LOSS PREVENTION ENGINEER Oxygen Saturation 95% 04/27/2016 6:07 PM FIRE LOSS PREVENTION ENGINEER Inhaled Oxygen Concentration - - Weight 154.2 kg (340 lb) 04/27/2016 11:41 AM FIRE LOSS PREVENTION ENGINEER Height 165.1 cm (5' 5) 04/27/2016 11:41 AM FIRE LOSS PREVENTION ENGINEER Body Mass Index 56.58 04/27/2016 11:41 AM FIRE LOSS PREVENTION ENGINEER Plan of Treatment Health Maintenance Due Date Last Done Comments COLOGUARD (AGES 45-75) - COL ON CA SCREENING 1974 COLON MONITORING 1974 COLONOSCOPY - COLON CA SCREENING 1974 CT COLONOGRAPHY - COLON CA SCREENING 1974 Colorectal Cancer Screening 1974 FIT - COLON CA SCREENING 1974 FLEX SIG - COLON CA SCREENING 1974 LIPID TESTING 1974 MAMMOGRAM 1974 HIV SCREENING 1989 HEPATITIS C SCREENING 07/12/1992 DTAP/TDAP/TD VACCINES (1 - Tdap) 1993 HEPATITIS B VACCINE (1 of 3 - 19+ 3-dose series) 1993 DEPRESSION SCREENING 03/13/2024 PNEUMOCOCCAL VACCINE 50+ (1 of 1 - PCV) 2024 ZOSTER VACCINE (1 of 2) 2024 COVID-19 VACCINE (1 - 2023-2 5 season) 2024 INFLUENZA VACCINE (#1) 2024 HIB VACCINE Aged Out No longer eligi ble based on patient's age to complete this topic HPV VACCINE Aged Out No longer eligi ble based on patient's age to complete this topic MENINGOCOCCAL (Group B) VACC INE SHARED DECISION-MAKING Aged Out No longer eligibl e based on patient's age to complete this topic MENINGOCOCCAL GROUPS A/C/Y/W VACCINE Aged Out No longer eligible b ased on patient's age to complete this [place] [address] [place] [address] [place] [address] [place] [address] Advance Directives * Full Code (Latest Code Status on File) Date Activated Date Inactivated Comments 09/07/2013 1:01 AM 09/09/2013 3:59 PM * Full Code Date Activated Date Inactivated Comments 09/06/2013 3:52 AM 09/07/2013 1:01 AM Care Teams Service Captain Relationship Specialty Start Date End Date Qiana Willard RN Train Reservation Clerk 09/06/13
--- OUTSIDE RECORDS SUMMARY | 2025-01-15 07:28 | XMS_ITS | Clinical Summary ---
Author Organization [facility] Address [address] [place] [address] Care Team Providers Care Computer Programming Manager Name Role Phone Unavailable Primary Care Provider Unavailabl e Social History Tobacco Use Types Packs/Day Years Used Date Smoking Tobacco: Never Assessed Comments Unknown Sex and Gender Information Value Date Recorded Sex Assigned at Not on file Legal Sex Female 11:06 AM CDT Gender Identity Not on file Sexual Orientation Not on file Plan of Treatment Health Maintenance Due Date Last Done Comments DTAP/TDAP/TD VACCINES (1 - Tdap) 1993 HEPATITIS B VACCINES (1 of 3 - 19+ 3-dose series) 09/1993 HPV/Cotest (21-29) 07/18/1995 CERVICAL CANCER SCREENING 2004 HPV/Cotest (30-65) 2004 PAP SMEAR 2004 BREAST CANCER SCREENING 2014 COLORECTAL SCREENING 07/18/2019 Colorectal Cancer Screening 07/18/2019 FIT-DNA Q 3 years 07/18/2019 FIT/FOBT Q 1 year 07/18/2019 Flex Sig/CT Colonography Q 5 years 07/18/2019 ZOSTER VACCINE (1 of 2) 2024 INFLUENZA VACCINE (#1) 2024 12/11/2018 Insurance CIGNA PPO
--- OUTSIDE RECORDS SUMMARY | 2025-01-15 07:28 | XMS_ITS | Clinical Summary ---
Author Organization [facility] Address [facility] [place] [address] Care Team Providers Care Automotive Center Manager Name Role Phone Ольга Cade MD Primary Care Provider [phone] Allergies Active Allergy Reactions Criticality Noted Date Comments Morphine Itching 07/28/2023 Medications gabapentin (NEURONTIN) 100 MG capsule Take 1 capsule (100 mg total) by mouth nightly at bedtime. Active Active Problems Problem Noted Date Diagnosed Date Anemia 07/28/2023 Anemia, unspecified Asthma Social History Tobacco Use Types Packs/Day Years Used Date Smoking Tobacco: Never Smokeless Tobacco: Never Alcohol Use Standard Drinks/Week Comments No 0 (1 standard drink = 0.6 oz pur e alcohol) [facility] Utilities Answer Date Recorded In the past 12 months has e [employer], gas, oil, or water [employer] threatened to shut off services in your home? No 07/28/2023 Humiliation, Afraid, Rape, and Kick questionnair e Answer Date Recorded Within the last year, have y ou been afraid of your partner or ex-partner? No 07/28/2023 Within the last year, have y ou been humiliated or emotionally abused in other ways by your partner or ex-partner? No Within the last year, have y ou been kicked, hit, slapped, or otherwise physically hurt by your partner or ex-partner? No 07/28/2023 Within the last year, have y ou been raped or forced to have any kind of sexual activity by your partner or ex-partner? No 07/28/2023 AUDIT-C Answer Date Recorded Frequency of Alcohol Consumption Never 06/25/2018 Average Number of Drinks Not on file 019 Frequency of Binge Drinking Not on file 06/11 Overall Financial Resource Strain (CARDIA) Answe r Date Recorded How hard is it for you to pa y for the very basics like food, housing, medical care, and heating? Not hard at all 07/28/2023 Hunger Vital Sign Answer Date Recorded Within the past 12 months, y ou worried that your food would run out before you got the money to buy more. Never true 07/28/19 24 Within the past 12 months, t he food you bought just didn't last and you didn't have money to get more. Never true 07/28/2023 PRAPARE - Transportation Answer Date Re corded In the past 12 months, has l ack of transportation kept you from medical appointments or from getting medications? No 07/11 In the past 12 months, has l ack of transportation kept you from meetings, work, or from getting things needed for daily living? No 07/28/2023 Housing Stability Vital Sign Answer Les e Recorded In the last 12 months, was t here a time when you were not able to pay the mortgage or rent on time? No 07/28/2023 In the past 12 months, how m any times have you moved where you were living? 1 07/28/2023 At any time in the past 12 m [facility], were you homeless or living in a [place] health care facility (including now)? No 07/28/2023 Comments No Sex and Gender Information Value Date Recorded Sex Assigned at Not on file Legal Sex Female 6:39 PM CDT Gender Identity Not on file Sexual Orientation Not on file Last Filed Vital Signs Vital Sign Reading Time Taken Comments Blood Pressure 171/99 09/16/2024 8:20 PM CDT Pulse 99 09/16/2024 8:20 PM CDT Temperature 36.2 C (97.1 F) 09/16/2024 8:20 PM CDT Respiratory Rate 18 09/16/2024 8:20 PM CDT Oxygen Saturation 100% 09/16/2024 8:20 PM CDT Inhaled Oxygen Concentration - - Weight 136.1 kg (300 lb) 09/16/2024 8:20 PM CDT Height 165.1 cm (5' 5) 09/16/2024 8:20 PM CDT Body Mass Index 49.92 09/16/2024 8:20 PM CDT Plan of Treatment Health Maintenance Due Date Last Done Comments Cervical Cancer Screening Pa p Smear (Age 30 to 64) Every 3 Years 1974 Colorectal Cancer Screening Colonoscopy (10 Years) 1974 Annual Physical 1977 Hepatitis C 1992 Hepatitis B Vaccines (1 of 3 - 19+ 3-dose series) 1993 Pneumococcal Vaccine: 50+ Years (1 of 2 - PCV) 1993 Cervical Cancer Screening Pa p with HPV Testing (Age 30 to 64) Every 5 Years 2004 Cervical Cancer Screening wi th HPV 2004 Mammogram Screening 2014 DTaP, Tdap and Td Vaccines ( 2 - Td or Tdap) 01/14/2021 01/14/2011 Zoster Vaccines (1 of 2) 2024 COVID-19 Vaccine (3 - 2024-2 6 season) 2024 05/25/2020, 05/25/2020, 05/04/2020 Influenza Adult (#1) 2024 02/04/2019, 12/11/2018, 02/27/2018 Hepatitis A Vaccines Aged Out No long er eligible based on patient's age to complete this topic Meningococcal B Vaccine Aged Out No l onger eligible based on patient's age to complete this topic Meningococcal Vaccine Aged Out No alan jerri eligible based on patient's age to complete this topic RSV Immunizations Under 20 Months Aged Out No longer eligible b ased on patient's age to complete this topic Goals Goal Patient Goal Type Associated Problems Recent Progress Patient-Stated? Author Patient will return to prior living situation and remain independent in ADLs upon discharge from hospital Lifestyle No Modesta Wasserman RN Advance Directives * Full Code (Latest Code Status on File) Date Activated Date Inactivated Comments 07/28/2023 9:59 AM 07/29/2023 7:34 PM Care Teams Automotive Center Manager Relationship Specialty Start Date End Date Ольга Cade MD [address] [facility] [address] [place] [address] PCP - General INTERNAL MEDICINE 07/29/23
[2025-01-15 07:36] VITALS: BP 161/90; PULSE 82; RESP 16; TEMP 36.2; O2SAT 99
--- OUTSIDE RECORDS SUMMARY | 2025-01-15 09:40 | XMS_ITS | Clinical Summary ---
Author Organization [facility] Address [address] [place] [address] Phone Care Team Providers Care Theatrical Agent Name Role Phone Gerald Fregoso MD Unavailable Ольга Cade MD Primary Care Provider [phone] Allergies Active Allergy Reactions Criticality Noted Date Comments Morphine Itching Low 09/05/2013 Medications montelukast (SINGULAIR) 10 mg tablet Take 10 mg by mouth. 7 Active albuterol HFA (PROVENTIL HFA,VENTOLIN HFA,PROAIR HFA) 90 mcg/actuation inhaler Inhale 2 puffs every 6 hours. 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
--- OUTSIDE RECORDS SUMMARY | 2025-01-15 09:40 | XMS_ITS | Clinical Summary ---
Author Organization [facility] Address [address] [place] [address] Care Team Providers Care Tension Machine Operator Name Role Phone Unavailable Primary Care Provider [...]
--- OUTSIDE RECORDS SUMMARY | 2025-01-15 09:41 | XMS_ITS | Clinical Summary ---
Author Organization [facility] Consumer Agent Portal (CAP) Address [address] [place] [address] Care Team Providers Care Radio Communications Mechanician Name Role Phone Qiana Willard RN Unavailable [phone] Source Comments [facility] Consumer Agent Portal (CAP),non-owned Affiliates and Associated Physician Practices is amultiple site organization consisting of ambulatory clinics and hospital sitesin [place], [place], [place] and [place]. This disclosure is being madepursuant to the Care Everywhere program and may not contain all information available regarding this patient. 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 Not on file Not on file Last Filed Vital Signs Vital Sign Reading Time Taken Comments Blood Pressure 123/71 04/27/2016 6:07 PM STREETCAR CONDUCTOR Pulse 105 04/27/2016 6:07 PM STREETCAR CONDUCTOR Temperature 37.3 C (99.1 F) 04/27/2016 6:07 PM STREETCAR CONDUCTOR Respiratory Rate 20 04/27/2016 5:12 PM STREETCAR CONDUCTOR Oxygen Saturation 95% 04/27/2016 6:07 PM STREETCAR CONDUCTOR Inhaled Oxygen Concentration - - Weight 154.2 kg (340 lb) 04/27/2016 11:41 AM STREETCAR CONDUCTOR Height 165.1 cm (5' 5) 04/27/2016 11:41 AM STREETCAR CONDUCTOR Body Mass Index 56.58 04/27/2016 11:41 AM STREETCAR CONDUCTOR Plan of Treatment Health Maintenance Due Date [...] age to complete this topic [place] [address] [place] [address] [place] [address] [place] [address] Advance Directives * Full Code (Latest Code Status on File) Date Activated Date Inactivated Comments 09/07/2013 1:01 AM 09/09/2013 3:59 PM * Full Code Date Activated Date Inactivated Comments 09/06/2013 3:52 AM 09/07/2013 1:01 AM Care Teams Radio Communications Mechanician Relationship Specialty Start Date End Date Qiana Willard RN Unit Manager 09/06/13
--- OUTSIDE RECORDS SUMMARY | 2025-01-15 09:41 | XMS_ITS | Data Portability ---
Author Organization [facility] SI (11) Address [address] [facility] [address] [place] [address] Care Team Providers Care Digital X Ray Service Engineer Name Role Phone NEELIMA ALCANTARA Referring Provider Assessment No assessment recorded. Plan of Treatment Reminders Order Date Submit Date Provider Last Modified By Organization Details Last Modified Time Details Appointments None record ed. Lab None record ed. Referral None record ed. Procedures None record ed. Surgeries None record ed. Imaging None record ed. Medication Orders None record ed. Patient TargetsNo targets recorded. Patient InstructionsNo instructions recorded. Reason for Referral None Reported. Procedures Surgical History Date Name Laterality Status Provider Name and Address Organization Details Recorded Time 09/29/2017 Sleep Study completed Lorenzo Chapman [facility] 10/03/19 18 11:10:37 Imaging Results None recorded. Procedure Notes None recorded. Medical Equipment None Reported. Medications Name Sig Start Date Stop Date Status Note LastModified by Organization Details LastModified Time ibuprofen 800 mg tablet active Not Available Not Available No t Available tizanidine 4 mg tablet active Not Available Not Available No t Available fluconazole 150 mg tablet active Not Available Not Availabl e Not Available hydrocodone 5 mg-acetaminoph en 325 mg tablet active Not Available Not Available Not Available meloxicam 15 mg tablet active Not Available Not Available No t Available amoxicillin 875 mg-potassium clavulanate 125 mg tablet active Not Available Not Availabl e Not Available tizanidine 4 mg capsule active Not Available Not Available N ot Available meloxicam active Not Available Not Nella ilable Not Available albuterol sulfate active Not Available Not Available Not Available Vitals Date Recorded Body height Body mass index (BMI) Body weight Provider Name and Address Organization Details Last Updated DateTime 09/29/2017 165.1 cm 54.9 kg/m2 978972.48 g Lorenzo Chapman [place] [facility] 10/02/2017 11:10:00 Social History None recorded. Functional Status None recorded. Mental Status None recorded. Family History Nothing Reported. Medical History Condition Response Obesity Y Asthma Y Gynecological HistoryNo gynecological history recorded. Obstetrics History GPAL:G 0 P 0 0 0 0 Past Encounters Encounter ID Performer Location Encounter Start Date Encounter Closed Date Diagnosis/Indication Diagnosis SNOMED-CT Code Diagnosis ICD10 Code Diagnosis IMO Codes Diagnosis Note [id number] [facility], [facility] (64) [phone] [place] [address] 09/29/2017 21:01:08 10/02/2017 11:06:53 Obstructive sleep apnea of adult 6471383876 103 G47.33 Health Concerns Section Related Observation LastModified by Organization Detai ls LastModified Time None Recorded Concern Status LastModified by Organization Details LastModified Time None Recorded Advance Directives Directive None Recorded Payers Insurance Date Sequence Insurance Name Policy Number Policy Calderon Covered Member ID Calderon Member ID Guarantor Name 10/02/2017 [facility] ATTN: MAIRA Kiran [id number] Alisa Kiran 11/07/2017 [facility] [id number] Alisa Kiran [id number] Alisa Kiran OBGyn Episode No OBEpisode recorded.
--- OUTSIDE RECORDS SUMMARY | 2025-01-15 09:41 | XMS_ITS | Clinical Summary ---
Author Organization [facility] Address [facility] [place] [address] Care Team Providers Care Jewelry Inspector Name Role Phone Ольга Cade MD Primary Care Provider [phone] Allergies Active Allergy Reactions Criticality Noted Date [...] drink = 0.6 oz pur e alcohol) [facility] Utilities Answer Date Recorded In the past 12 months has e [employer], gas, oil, or water [employer] threatened to shut off services in your [...] any time in the past 12 m [facility], were you homeless or living in a nursing home (including now)? No 07/28/2023 Comments No Sex [...] 9:59 AM 07/29/2023 7:34 PM Care Teams Jewelry Inspector Relationship Specialty Start Date End Date Ольга Cade MD [address] [facility] [address] [place] [address] PCP - General INTERNAL MEDICINE 07/29/23
[2025-01-15] MEDS: KETOROLAC 30 MG/ML VIAL (*BKC) IM (09:44)
--- NOTE | 2025-01-15 10:58 | ED_ITS ---
HPI - General Adult General Chief complaint: Back Pain/Injury Stated complaint: L side pain after fall Time Seen by Provider: 01/15/25 09:02 History of Present Illness HPI narrative: 49-year-old female presenting with diffuse bilateral lower back pain, left hip pain, and left knee pain following a fall on Monday. Patient states she slipped while in her shower. She endorses that she did hit her head but did not lose consciousness, is not dizzy, and has no sensitivity to light/sound but does have a mild headache. Denies use of blood thinners. Patient states she has been struggling to walk since her fall. She endorses diffuse numbness/tingling extending from her left hip down her entire left leg. She has a mild bruise present overlying the patella without swelling or deformity. She denies bowel or bladder incontinence/retention and saddle anesthesia. Related Data Home Medications ?Medication ?Instructions ?Recorded ?Confirmed ?Last Taken ?Type albuterol sulfate 90 mcg/actuation 2 puff inhalation Q ID PRN Wheezing 07/07/21 Unknown History aerosol inhaler montelukast 10 mg tablet 10 mg PO DAILY 07/07/21 Unk nown History (Singulair) Allergies Allergy/AdvReac Type Severity Reaction Status Date / Time morphine Allergy Unknown Itching Verified 01/15/25 07:38 Review of Systems Review of Systems: All systems reviewed & are unremarkable except as noted in HPI and below PMFSH Past Medical History Medical History Anemia Asthma Morbid obesity Surgical History Surgical History H/O section H/O gastric bypass Hx of appendectomy Hx of cholecystectomy Family History Family History Father Diabetes mellitus Hypertension Mother Hypertension Family history of elevated blood lipids Other Family history of chronic obstructive pulmonary disease Social History Social History Social History: The patient is a lifelong nonsmoker. She lives with the 1 child that she has. She only has the 1 child. The patient does not have a durable power deputy prosecuting attorney for healthcare. The patient works for for the [employer]. She denies any marijuana, alcohol, or illicit drugs. She is a [facility] nonsmoker. Code status full code Second hand tobacco smoke exposure: No Alcohol intake: never Substance use: never Gender identity (if verbalized by the patient): Female Spiritual care concerns: No Exam Narrative: GENERAL: Well appearing, well-nourished, non-toxic, in mild distress. HEAD: Normocephalic, atraumatic. EYES: PERRL/EOMI, conjunctivae clear bilaterally. No nystagmus. NOSE: Normal, no drainage EARS:TMS clear, with good light reflex. No erythema or bulging. THROAT: Pharynx clear, no exudate. MMs moist. NECK: Supple. No adenopathy, no masses. RESPIRATORY: Airway patent, respirations nonlabored. Clear to auscultation bilaterally, no rales, rhonchi, wheezing. CARDIOVASCULAR: Regular rate and rhythm without murmurs, rubs, or gallops. Peripheral pulses 2+ and equal bilaterally. ABDOMINAL: Soft, nontender, nondistended, no hepatosplenomegaly. Normoactive BS. MUSCULOSKELETAL: Moves all extremities. Strength/ROM intact without gross deformities or TTP. No edema. No calf tenderness. SKIN: Warm, dry, normal color. No rashes. NEURO: A&O X3. Speech clear. Follows commands. CN II-XII intact. Sensation grossly intact. Steady gait. No ataxic movements. Strength 5/5 in upper and lower extremities bilaterally. Yuho-xm-itdi and yhtjkr-mi-vhpa testing intact bilaterally. No pronator drift. PSYCHIATRIC: Appropriate mood and affect. Normal interaction. Course Vital Signs Vital signs: Vital Signs Temperature 97.2 F L 01/15/25 07:36 Pulse Rate 82 01/15/25 07:36 Respiratory Rate 16 01/15/25 07:36 Blood Pressure 161/90 H 01/15/25 07:36 Pulse Oximetry 99 01/15/25 07:36 Temperature 97.2 F L 01/15/25 07:36 Pulse Rate 79 01/15/25 15:55 Respiratory Rate 18 01/15/25 15:55 Blood Pressure 158/79 H 01/15/25 15:55 Pulse Oximetry 99 01/15/25 15:55 Medical Decision Making [facility] Narrative Medical decision making narrative: 49-year-old female presenting with diffuse bilateral lower back pain, left hip pain, and left knee pain following a fall on Monday. Patient states she slipped while in her shower. She endorses that she did hit her head but did not lose consciousness, is not dizzy, and has no sensitivity to light/sound but does have a mild headache. Denies use of blood thinners. Patient states she has been struggling to walk since her fall. She endorses diffuse numbness/tingling extending from her left hip down her entire left leg. She has a mild bruise present overlying the patella without swelling or deformity. She denies bowel or bladder incontinence/retention and saddle anesthesia. Upon my assessment, patient was lying comfortably in bed. CT lumbar spine and CT hip showed no acute abnormalities. Left knee x-ray showed no acute fracture or malalignment. CT head and neck showed no acute processes. Patient endorsed she cannot take medicine p.o.. Patient was given Toradol IM and stated that it did not improve her pain. Administered IM Valium and upon my reassessment patient states pain mildly improved. Patient is comfortable discharging home with pain regimen of Flexeril and Jerome PRN. All imaging results discussed with patient and patient verbalized understanding of these results as well as the need for close follow-up with primary care provider. Medical Records Medical records reviewed: Yes I reviewed the external patient's medical records. Vital Signs Vital Signs: Vital Signs Temperature 97.2 F L 01/15/25 07:36 Pulse Rate 82 01/15/25 07:36 Respiratory Rate 16 01/15/25 07:36 Blood Pressure 161/90 H 01/15/25 07:36 Pulse Oximetry 99 01/15/25 07:36 Temperature 97.2 F L 01/15/25 07:36 Pulse Rate 79 01/15/25 15:55 Respiratory Rate 18 01/15/25 15:55 Blood Pressure 158/79 H 01/15/25 15:55 Pulse Oximetry 99 01/15/25 15:55 Lab Data Lab results reviewed: Yes I reviewed the patient's lab results. Imaging Data Attestation: I personally reviewed and interpreted this imaging study as follows: Radiologist's impression: ITS Impressions Knee X-Ray 01/15/25 10:16 Impression: No acute fracture or malalignment. Lumbar Spine CT 01/15/25 10:20 Impression: No acute abnormality. Hip CT 01/15/25 10:39 IMPRESSION: 1.No convincing CT evidence for an acute fracture. If symptoms persist or worsen, consider an MRI for further assessment. 2. Moderate degenerative change about the left hip similar to the study from 10/06/2021. Head CT 01/15/25 13:09 IMPRESSION: 1. No fracture or acute intracranial process. 2. 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 Cervical Spine CT 01/15/25 13:19 IMPRESSION: 1. Moderate cervical kyphosis which could be positional or due to muscle spasm. No acute osseous abnormality. 2. Mild cervical spondylosis. Critical Care Time Critical Care Time Critical Care Time: No Discharge Plan Discharge Clinical Impression: Fall Qualifiers: Encounter type: initial encounter Qualified Code(s): W19.XXXA - Unspecified fall, initial encounter Patient Disposition: Home Condition: Stable Instructions: Acute Low Back Pain (ED), Knee Pain (ED), Acute Neck Pain (ED) Additional Instructions: Return to the emergency department if you experience fever, chest pain, shortness of breath, abdominal pain with nausea and vomiting, weakness, numbness/tingling, or any other symptoms that are concerning to you. Take muscle relaxers as needed and prescribed. Recommend taking these at night as they may cause sedation. Do not drive, operate heavy machinery, drink alcohol while on muscle relaxers as this may cause further sedation. Follow up with primary care doctor Patient Language: Divehi Prescriptions: New cyclobenzaprine 5 mg tablet 5 mg PO TID PRN (Reason: muscle spasm) Qty: 15 0RF oxycodone-acetaminophen 5-325 mg tablet 1 tablet PO Q6H PRN (Reason: pain) Qty: 20 0RF No Action montelukast [Singulair] 10 mg Tablet 10 mg PO DAILY albuterol sulfate 90 mcg/actuation Hfa Aerosol Inhaler 2 puff INHALATION QID PRN (Reason: Wheezing) hydrocodone-acetaminophen 5-325 mg tablet 1 tablet PO Q6H PRN (Reason: pain) Qty: 6 0RF (DME) Ankle Support Misc See Rx Instructions .Route Qty: 1 0RF Rx Instructions: As directed oxycodone 5 mg/5 mL solution 5 mg PO Q8H PRN (Reason: pain) Qty: 30 0RF ondansetron HCl 4 mg/5 mL solution 4 mg PO Q8H PRN (Reason: nausea and vomiting) Qty: 50 0RF ciprofloxacin [Cipro] 500 mg/5 mL suspension,microcapsule recon 500 mg PO Q12H Qty: 70 0RF cyclobenzaprine 5 mg tablet 5 mg PO TID PRN (Reason: muscle spasm) Qty: 15 0RF gabapentin 100 mg capsule 100 mg PO TID Qty: 90 0RF lidocaine 5 % adhesive patch,medicated 1 patch topical DAILY Qty: 30 0RF Rx Instructions: leave on most painful area for up to 12 hrs benzonatate 100 mg capsule 200 mg PO TID PRN (Reason: cough) Qty: 40 0RF ipratropium bromide 42 mcg (0.06 %) spray,non-aerosol 2 spray intranasal QID 7 Days Qty: 15 0RF Rx Instructions: administer into each nostril Paxlovid 150 mg x 2- 100 mg tablet See Rx Instructions .ROUTE .COMPLEX Qty: 10 0RF Rx Instructions: take TWO 150 mg tablets of nirmatrelvir with ONE 100 mg tablet of ritonavir twice daily for 5 days cephalexin 500 mg capsule 500 mg PO Q8H 7 Days Qty: 21 0RF omeprazole 20 mg capsule,delayed release(DR/EC) 20 mg PO DAILY 14 Days Qty: 14 0RF Follow-up/Referrals: Alyssia,MD Ольга [Primary Care Provider] Stand Alone Forms: Work/School Release IP
[2025-01-15] MEDS: diazePAM INJ (*CRX) 10 MG/2 ML SYRINGE 5 MG IM (12:45)
[2025-01-15 14:54] VITALS: BP 158/73; PULSE 86; RESP 17; O2SAT 96
[2025-01-15] MEDS: LIDOCAINE 5% PATCH 1 PATCH TRANSDERM (15:42)
[2025-01-15 15:55] VITALS: BP 158/79; PULSE 79; RESP 18; O2SAT 99
== END 2025-01-15 16:08 | disposition home or self-care (01) ==
PROVIDERS: PCP Internal Medicine
DX: S39.92XA Unspecified injury of lower back, initial encounter (principal); S79.912A Unspecified injury of left hip, initial encounter; S89.92XA Unspecified injury of left lower leg, initial encounter; J45.909 Unspecified asthma, uncomplicated; E66.01 Morbid (severe) obesity due to excess calories; Z68.43 Body mass index [BMI] 50.0-59.9, adult; Z98.84 Bariatric surgery status; Z86.2 Personal history of diseases of the blood and blood-forming organs and certain disorders involving the immune mechanism; Z90.49 Acquired absence of other specified parts of digestive tract; M47.812 Spondylosis without myelopathy or radiculopathy, cervical region; W18.2XXA Fall in (into) shower or empty bathtub, initial encounter; Y93.E1 Activity, personal bathing and showering
CPT/HCPCS: 70450; 72125; 72131; 73564; 73700; 96372; 99284; A9270; J1885; J3360

== ENCOUNTER 2025-02-11 18:02 | Observation (INO) | payer BC, SELFPAY ==
[2025-02-11] VITALS (23 sets, daily range): BP systolic 92–158; BP diastolic 71–109; PULSE 105–202; RESP 16–36; TEMP 36.4–37.1; O2SAT 98–100; BMI 47.5
--- NOTE | ~2025-02-11 | XR_ITS ---
XR chest 1V portable INDICATION:palpitations . REFERENCE: None FINDINGS: A single AP of the chest demonstrates normal heart size. The lungs are clear. There is no evidence of pneumothorax or pleural effusion. IMPRESSION: No acute pulmonary findings. Reviewed, dictated and finalized at location S. D NUTRITION ASSISTANT
--- NOTE | ~2025-02-11 | CT_ITS ---
CTA chest abdomen pelvis HISTORY:abd pain, vomiting, tachycardia . COMPARISON: None. TECHNIQUE Following the noncontrasted tree trimmer, axial images of the thorax, abdomen and pelvis were obtained following infusion of [100] cc of Isovue 370. Post-processing on an independent workstation was performed to reconstruct MIP images for evaluation of the aortic vasculature. Dose lowering technique and dose optimization was utilized. FINDINGS: CTA CHEST: [The ascending and descending thoracic aorta are normal in caliber and patency. No dissection is evident.] The aortic arch demonstrates normal branching pattern. The origins of the supra aortic vessels are patent. The pulmonary arteries demonstrate normal patency. CTA ABDOMEN AND PELVIS: The abdominal aorta, visceral vessels and renal arteries demonstrate no hemodynamically significant stenosis. No aneurysm is identified. [The iliac and visualized femoral vessels are widely patent. No aneurysm or hemodynamically significant stenosis is noted. ] NONVASCULAR FINDINGS: [The lungs are clear.] [No pathologically enlarged mediastinal adenopathy is evident.] Small hiatal hernia is noted. There is fatty infiltration of the liver. No intrahepatic mass or ductal dilatation is evident. There is increased density within the gallbladder may represent sludge. The pancreas and spleen are normal in appearance. The adrenal glands are symmetric in size. Kidneys enhance symmetrically without hyd ronephrosis. 1.6 cm left renal cyst is noted. No intrarenal stones are noted.] [ There is no hydronephrosis.] [ ] There is a small hiatal hernia. Changes from gastric bypass surgery is noted. There is focal dilatation of the small bowel loop at the anastomotic site in the right lower quadrant of the abdomen. There is fatty infiltration of the cecal and ascending colon wall may represent chronic inflammatory changes. [The bladder and rectum are normal in appearance.] [ ] [ No free fluid or air is evident.] [There is no abdominal or pelvic lymphadenopathy.] [The thoracic and lumbar spines are unremarkable.] [The [No osseous lesion is identified.] IMPRESSION: 1. [No thoracic or abdominal aortic aneurysm is evident. There is no dissection.] 2. [No acute abnormality is noted in the chest, abdomen and pelvis.] 3. Infiltrative fat within the cecum, ascending and transverse colon wall suggestive of chronic inflammatory colitis. All CT scans at this facility are performed using low dose modulation techniques as appropriate to perform exam including the following: automated exposure control; use of iterative reconstruction technique; adjustment of the mA and/or kV according to patient size (this includes techniques or standardized protocols for targeted exams where dose is matched to indication/reason for exam). Reviewed, dictated and finalized at location S. ASSEMBLER KITCHEN IMPRESSION: 1. [No thoracic or abdominal aortic aneurysm is evident. There is no dissecti on.] 2. [No acute abnormality is noted in the chest, abdomen and pelvis.] 3. Infiltrative fat within the cecum, ascending and transverse colon wall sugge stive of chronic inflammatory colitis. All CT scans at this facility are performed using low dose modulation techniqu es as appropriate to perform exam including the following: automated exposure c ontrol; use of iterative reconstruction technique; adjustment of the mA and/or kV according to patient size (this includes techniques or standardized protocol s for targeted exams where dose is matched to indication/reason for exam).
--- NOTE | 2025-02-11 18:07 | ECG_ITS ---
Test Date: 2025-02-11 18:08:02 Measurements Intervals [place] Rate: 191 P: 0 ID: 0 QRS: 40 QRSD: 98 T: 15 QT: 229 QTc: 409 Interpretive Statements ATRIAL FIBRILLATION WITH RAPID VENTRICULAR RESPONSE NONSPECIFIC ST & T-WAVE ABNORMALITY- DIFFUSE LEADS BASELINE ARTIFACT- I, II, III, AVR, AVL, AVF, V1-V6 ABNORMAL ECG No previous ECG available for comparison Electronically Signed On 02-11-2025 20:11:37 PROFESSOR OF GEOGRAPHY by Jay Morton D.O.
[2025-02-11] MEDS: dilTIAZem 100 MG/100 ML 100 MG/100 ML BAG IV CONT (18:16)
--- NOTE | 2025-02-11 18:19 | ED.ARRPALP ---
HPI - Arrhythmia/Palpitations General Chief Complaint: Arrhythmia/Palpitations <Mari Diaz PA-C - Last Filed: 02/11/25 21:42> Stated Complaint: new onset a fib <Mari Diaz PA-C - Last Filed: 02/11/25 21:42> Time Seen by Provider: 02/11/25 18:06 <Mari Diaz PA-C - Last Filed: 02/11/25 21:42> Source: patient and EMS <Mari Diaz PA-C - Last Filed: 02/11/25 21:42> Mode of arrival: EMS <CRISTINO Jennings Last Filed: 02/11/25 21:42> Limitations: no limitations <Mari Diaz PA-C - Last Filed: 02/11/25 21:42> History of Present Illness HPI narrative: This is a 49 year old female that presents to the ER for vomiting, decreased appetite, dizziness. Ongoing over the last 2 days. Called EMS for evaluation. Noted to be in Afib with RVR. No previous history of this. <Mari Diaz PA-C - Last Filed: 02/11/25 21:42> Related Data Home Medications: Home Medications ?Medication ?Instructions ?Recorded ?Confirmed ?Last Taken ?Type albuterol sulfate 90 mcg/actuation 2 puff inhalation QID PRN Wheezing 07/07/21 02/11/25 01/12/25 History aerosol inhaler losartan 50 mg tablet 50 mg PO DAILY HTN 02/11/25 02/11/25 02/10/25 History <Mari Diaz PA-C - Last Filed: 02/11/25 21:42> Allergies/Adverse Reactions: Allergies Allergy/AdvReac Type Severity Reaction Status Date / Time morphine Allergy Unknown Itching Verified 02/11/25 23:13 <CRISTINO Jennings Last Filed: 02/11/25 21:42> Review of Systems Review of Systems: All systems reviewed & are unremarkable except as noted in HPI and below <Mari Diaz PA-C - Last Filed: 02/11/25 21:42> FORMERLY [facility], [facility] Past Medical History Medical History: Medical History Anemia Asthma Morbid obesity <Mari Diaz PA-C - Last Filed: 02/11/25 21:42> Surgical History Surgical History: Surgical History H/O section H/O gastric bypass Hx of appendectomy Hx of cholecystectomy <Mari Diaz PA-C - Last Filed: 02/11/25 21:42> Family History Family History: Family History Father Diabetes mellitus Hypertension Mother Hypertension Family history of elevated blood lipids Other Family history of chronic obstructive pulmonary disease <Mari Diaz PA-C - Last Filed: 02/11/25 21:42> Social History Social History: Social History Social History: The patient is a lifelong nonsmoker. She lives with the 1 child that she has. She only has the 1 child. The patient does not have a durable power attorney at law for healthcare. The patient works for for the [employer]. She denies any marijuana, alcohol, or illicit drugs. She is a lifelong nonsmoker. Code status full code Smoking status: Never smoker Second hand tobacco smoke exposure: No Alcohol intake: unknown Substance use: never Lack of Transportation: No Lack of Food: Never True Current Housing: I Have Housing Concerned About Future Housing: No Difficulty Paying Gas/Electric Bills: No Difficulty Paying for Meds: No Currently Unemployed: No Education: Bachelor's Degree Difficulty w/ Childcare or Family Care: No Gender identity (if verbalized by the patient): Female Spiritual care concerns: No <Mari Diaz PA-C - Last Filed: 02/11/25 21:42> Exam Narrative: GENERAL: Well-appearing, well-nourished, and in no acute distress. HEAD: Normocephalic, atraumatic. EYES: EOMI. ENT: Nares clear, no rhinorrhea or epistaxis. Mucous membranes moist. Oropharynx without tonsillar hypertrophy exudate or other lesions. NECK: Supple. No adenopathy or masses. CHEST: Clear to auscultation. No respiratory distress. No wheezes rales or rhonchi HEART: Irregularly irregular, tachycardic. Normal peripheral pulses. ABDOMEN: Soft, nontender, nondistended, normal active bowel sounds. EXTREMITIES: Normal range of motion. No edema. SKIN: Warm, dry, no rash. NEURO: No focal deficits. Alert and oriented x3. PSYCH: Normal mood and affect <Mari Diaz PA-C - Last Filed: 02/11/25 21:42> Course TIER OVER/PA Physician Supervision This visit was performed by both a physician and an APC. I performed all aspects of the MDM as documented. <Ismael Martínez DO - Last Filed: 02/12/25 01:34> Consultations Cardiology: Time of Consult: 21:39 <Mari Diaz PA-C - Last Filed: 02/11/25 21:42> I have discussed the care of this patient with the following provider: Dr. Mares, recommends continuing diltiazem, therapeutic Lovenox <Mari Diaz PA-C - Last Filed: 02/11/25 21:42> Vital Signs Vital signs: Vital Signs Temperature 97.6 F 02/11/25 18:01 Pulse Rate 202 H 02/11/25 18:01 Respiratory Rate 17 02/11/25 18:01 Blood Pressure 128/98 H 02/11/25 18:01 Pulse Oximetry 99 02/11/25 18:01 Oxygen Delivery Room Air 02/11/25 18:01 Temperature 97.9 F 02/12/25 00:00 Pulse Rate 110 H 02/12/25 00:00 Respiratory Rate 16 02/12/25 00:00 Blood Pressure 143/77 H 02/12/25 00:00 Pulse Oximetry 100 02/12/25 00:00 Oxygen Delivery Room Air 02/11/25 18:01 <Mari Diaz PA-C - Last Filed: 02/11/25 21:42> Vital Signs Temperature 97.6 F 02/11/25 18:01 Pulse Rate 202 H 02/11/25 18:01 Respiratory Rate 17 02/11/25 18:01 Blood Pressure 128/98 H 02/11/25 18:01 Pulse Oximetry 99 02/11/25 18:01 Oxygen Delivery Room Air 02/11/25 18:01 Temperature 97.9 F 02/12/25 00:00 Pulse Rate 110 H 02/12/25 00:00 Respiratory Rate 16 02/12/25 00:00 Blood Pressure 143/77 H 02/12/25 00:00 Pulse Oximetry 100 02/12/25 00:00 Oxygen Delivery Room Air 02/11/25 18:01 <Ismael Martínez DO - Last Filed: 02/12/25 01:34> [facility] Narrative Medical decision making narrative: Patient presents the emergency department with new onset atrial fibrillation. Rates in the 170s to 180s upon arrival. Given bolus of diltiazem, started on drip. Heart rate now 100-110s. She is afebrile and nontoxic appearing. Cbc without leukocytosis. Metabolic panel without concerning this. Magnesium is low, this was replaced. CTA chest/abdomen/pelvis obtained for further evaluation. Showing no acute changes. Patient will be admitted to the hospitalist's service for further management <Mari Diaz PA-C - Last Filed: 02/11/25 21:42> Differential Diagnosis Differential Diagnosis: Atrial fibrillation, atrial flutter, PE, electrolyte derangement, aortic dissection <CRISTINO Jennings Last Filed: 02/11/25 21:42> Lab Data Result diagrams: 02/11/25 18:36 02/11/25 18:36 <CRISTINO Jennings Last Filed: 02/11/25 21:42> Labs: Lab Results 02/11/25 02/11/25 Range/Units 18:36 21:20 WBC 7.3 (4.5-10.0) K/mm3 RBC 5.31 (4.2-5.4) M/mm3 Hgb 10.1 L (12.0-15.0) g/dL Hct 36.2 L (37.0-47.0) % MCV 68.2 L (80-100) fl MCH 19.0 L (26-34) pg MCHC 27.9 L (32-36) g/dl RDW 21.1 H (11.5-14.5) % Plt Count 326 D (150-375) k/mm3 MPV 9.0 (7.4-10.4) fl Immature Gran % (Auto) 0.7 H (0-0.5) % Neut % (Auto) 82.1 H (45.5-73.1) % Lymph % (Auto) 10.0 L (18.3-44.2) % [place] % (Auto) 6.7 (2.6-8.5) % Eos % (Auto) 0.0 (0-4.4) % Baso % (Auto) 0.5 (0.2-1.2) % Lymph # (Auto) 0.73 L (0.9-3.2) K/mm3 [place] # (Auto) 0.5 (0.1-0.6) K/mm3 Eos # (Auto) 0.0 (0-0.3) K/mm3 Baso # (Auto) 0.0 (0.0-0.1) K/mm3 Abs Immat Gran (auto) 0.05 H (0.00-0.031) K/mm3 Absolute Neuts (auto) 6.0 (1.3-6.7) K/mm3 Absolute Nucleated RBC 0.000 (0.0-0.012) K/mm3 Band Neutrophils % Not Reportable Nucleated RBC % 0.0 (0.0-0.2) % Platelet Estimate Adequate (Adequate) Hypochromasia 1+ Target Cells Occasional Schistocytes None seen PT 13.8 (11.1-14.7) Seconds INR 1.0 APTT 23.1 (22.3-36.8) Seconds Sodium 135 L (137-145) mmol/L Potassium 3.5 (3.4-5.0) mmol/L Chloride 101 (98-107) mmol/L Carbon Dioxide 24 (22-30) mmol/L Anion Gap 10 (4-12) mmol/L BUN 9 (7-17) mg/dL Creatinine 0.51 L (0.7-1.0) mg/dL Estim Creat Clear Calc 150 ml/min Estimated GFR > 60 (59 - ) Glucose 139 H (65-110) mg/dL Calcium 9.1 (8.4-10.2) mg/dL Magnesium 1.3 L (1.6-2.3) mg/dL Total Bilirubin 1.3 (0.2-1.3) mg/dL AST 62 H (14-36) U/L ALT 32 (6-35) U/L Alkaline Phosphatase 102 (38-126) U/L Troponin I < 0.012 < 0.012 (0.000-0.034) ng/mL Total Protein 8.8 H (6.3-8.2) g/dL Albumin 4.2 (3.5-5.1) g/dL Lipase 168 (23-300) U/L <Mari Diaz PA-C - Last Filed: 02/11/25 21:42> Lab Results 02/11/25 02/11/25 Range/Units 18:36 21:20 WBC 7.3 (4.5-10.0) K/mm3 RBC 5.31 (4.2-5.4) M/mm3 Hgb 10.1 L (12.0-15.0) g/dL Hct 36.2 L (37.0-47.0) % MCV 68.2 L (80-100) fl MCH 19.0 L (26-34) pg MCHC 27.9 L (32-36) g/dl RDW 21.1 H (11.5-14.5) % Plt Count 326 D (150-375) k/mm3 MPV 9.0 (7.4-10.4) fl Immature Gran % (Auto) 0.7 H (0-0.5) % Neut % (Auto) 82.1 H (45.5-73.1) % Lymph % (Auto) 10.0 L (18.3-44.2) % [place] % (Auto) 6.7 (2.6-8.5) % Eos % (Auto) 0.0 (0-4.4) % Baso % (Auto) 0.5 (0.2-1.2) % Lymph # (Auto) 0.73 L (0.9-3.2) K/mm3 [place] # (Auto) 0.5 (0.1-0.6) K/mm3 Eos # (Auto) 0.0 (0-0.3) K/mm3 Baso # (Auto) 0.0 (0.0-0.1) K/mm3 Abs Immat Gran (auto) 0.05 H (0.00-0.031) K/mm3 Absolute Neuts (auto) 6.0 (1.3-6.7) K/mm3 Absolute Nucleated RBC 0.000 (0.0-0.012) K/mm3 Band Neutrophils % Not Reportable Nucleated RBC % 0.0 (0.0-0.2) % Platelet Estimate Adequate (Adequate) Hypochromasia 1+ Target Cells Occasional Schistocytes None seen PT 13.8 (11.1-14.7) Seconds INR 1.0 APTT 23.1 (22.3-36.8) Seconds Sodium 135 L (137-145) mmol/L Potassium 3.5 (3.4-5.0) mmol/L Chloride 101 (98-107) mmol/L Carbon Dioxide 24 (22-30) mmol/L Anion Gap 10 (4-12) mmol/L BUN 9 (7-17) mg/dL Creatinine 0.51 L (0.7-1.0) mg/dL Estim Creat Clear Calc 150 ml/min Estimated GFR > 60 (59 - ) Glucose 139 H (65-110) mg/dL Calcium 9.1 (8.4-10.2) mg/dL Magnesium 1.3 L (1.6-2.3) mg/dL Total Bilirubin 1.3 (0.2-1.3) mg/dL AST 62 H (14-36) U/L ALT 32 (6-35) U/L Alkaline Phosphatase 102 (38-126) U/L Troponin I < 0.012 < 0.012 (0.000-0.034) ng/mL Total Protein 8.8 H (6.3-8.2) g/dL Albumin 4.2 (3.5-5.1) g/dL Lipase 168 (23-300) U/L <Ismael Martínez, DO - Last Filed: 02/12/25 01:34> Imaging Data Radiologist's impression: ITS Impressions Chest X-Ray 02/11/25 18:52 IMPRESSION: No acute pulmonary findings. Chest/Abdomen/Pelvis CTA 02/11/25 20:00 IMPRESSION: 1. [No thoracic or abdominal aortic aneurysm is evident. There is no dissection.] 2. [No acute abnormality is noted in the chest, abdomen and pelvis.] 3. Infiltrative fat within the cecum, ascending and transverse colon wall suggestive of chronic inflammatory colitis. All CT scans at this facility are performed using low dose modulation techniques as appropriate to perform exam including the following: automated exposure control; use of iterative reconstruction technique; adjustment of the mA and/or kV according to patient size (this includes techniques or standardized protocols for targeted exams where dose is matched to indication/reason for exam). <Mari Diaz PA-C - Last Filed: 02/11/25 21:42> ITS Impressions Chest X-Ray 02/11/25 18:52 IMPRESSION: No acute pulmonary findings. Chest/Abdomen/Pelvis CTA 02/11/25 20:00 IMPRESSION: 1. [No thoracic or abdominal aortic aneurysm is evident. There is no dissection.] 2. [No acute abnormality is noted in the chest, abdomen and pelvis.] 3. Infiltrative fat within the cecum, ascending and transverse colon wall suggestive of chronic inflammatory colitis. All CT scans at this facility are performed using low dose modulation techniques as appropriate to perform exam including the following: automated exposure control; use of iterative reconstruction technique; adjustment of the mA and/or kV according to patient size (this includes techniques or standardized protocols for targeted exams where dose is matched to indication/reason for exam). <Ismael Martínez DO - Last Filed: 02/12/25 01:34> Critical Care Time Critical Care Time Critical Care Time: Yes <Mari Diaz PA-C - Last Filed: 02/11/25 21:42> Time Type: Intermittent <Mari Diaz PA-C - Last Filed: 02/11/25 21:42> Initial evaluation, discuss w/ involved parties, attempting to gather old records: 10 minutes <Mari Diaz PA-C - Last Filed: 02/11/25 21:42> Documenting medical record: 10 minutes <CRISTINO Jennings Last Filed: 02/11/25 21:42> Review of results (EKG's, labs, imaging): 10 minutes <CRISTINO Jennings Last Filed: 02/11/25 21:42> Serial repeat bedside evaluation: 10 minutes <CRISTINO Jennings Last Filed: 02/11/25 21:42> Discussing case with multiple memebers of the care team and consultants: 10 minutes <CRISTINO Jennings Last Filed: 02/11/25 21:42> Total Critical Care Time: 50 <Mari Diaz PA-C - Last Filed: 02/11/25 21:42> 50 <Ismael Martínez DO - Last Filed: 02/12/25 01:34> Discharge Plan Discharge Clinical Impression: Atrial fibrillation with RVR, Hypomagnesemia <Mari Diaz PA-C - Last Filed: 02/11/25 21:42> Patient Disposition: Still a Patient <Mari Diaz PA-C - Last Filed: 02/11/25 21:42> Condition: Improved <aMri Diaz PA-C - Last Filed: 02/11/25 21:42>
[2025-02-11 18:46] LABS: Hematocrit 36.2 % (37.0-47.0); Hemoglobin 10.1 g/dL (12.0-15.0); Immature Granulocyte Percent A 0.7 % (0-0.5); Lymphocytes Absolute Auto 0.73 K/mm3 (0.9-3.2); Mean Corpuscular HGB Conc 27.9 g/dl (32-36); Mean Corpuscular Hemoglobin 19.0 pg (26-34); Mean Corpuscular Volume 68.2 fl (80-100); Nucleated Red Blood Cells Absolute Auto 0.000 K/mm3 (0.0-0.012); Nucleated Red Blood Cells Perc 0.0 % (0.0-0.2); Platelet Count Result 326 k/mm3 (150-375); Red Blood Count 5.31 M/mm3 (4.2-5.4); White Blood Count 7.3 K/mm3 (4.5-10.0)
[2025-02-11 18:57] LABS: INR 1.0; Prothrombin Time 13.8 Seconds (11.1-14.7)
[2025-02-11 18:58] LABS: Partial Thromboplastin Time 23.1 Seconds (22.3-36.8)
[2025-02-11 19:02] LABS: Magnesium 1.3 mg/dL (1.6-2.3)
[2025-02-11 19:04] LABS: Alanine Aminotransferase 32 U/L (6-35); Albumin Level 4.2 g/dL (3.5-5.1); Alkaline Phosphatase 102 U/L (38-126); Anion Gap 10 mmol/L (4-12); Aspartate Amino Transferase 62 U/L (14-36); Bilirubin,Total 1.3 mg/dL (0.2-1.3); Blood Urea Nitrogen 9 mg/dL (7-17); Calcium 9.1 mg/dL (8.4-10.2); Carbon Dioxide 24 mmol/L (22-30); Chloride 101 mmol/L (98-107); Estimated CRCL calculation 150 ml/min; Estimated Glomerular Filt Rate > 60; Glucose 139 mg/dL (65-110); Lipase 168 U/L (23-300); Potassium 3.5 mmol/L (3.4-5.0); Sodium 135 mmol/L (137-145); Total Protein 8.8 g/dL (6.3-8.2)
[2025-02-11 19:15] LABS: Troponin I < 0.012 ng/mL (0.000-0.034)
[2025-02-11] MEDS: SODIUM CHLORIDE 0.9% IV 1,000 ML 999 ML IV CONT (19:18)
[2025-02-11 19:19] LABS: Hypochromasia 1+; Schistocytes None Seen; Target Cells Occasional
[2025-02-11] MEDS: ONDANSETRON INJ 4 MG/2 ML VIAL IV PUSH (19:23)
[2025-02-11] MEDS: MAGNESIUM SULF 2 GM/WATER 50ML 2 GM/50 ML BAG IVPB ×2 (19:53→22:17)
--- NOTE | 2025-02-11 21:11 | ECG_ITS ---
Test Date: 2025-02-11 21:30:04 Measurements Intervals [place] Rate: 103 P: 27 IA: 136 QRS: 37 QRSD: 89 T: 57 QT: 363 QTc: 476 Interpretive Statements SINUS TACHYCARDIA BASELINE ARTIFACT- I, II, III, AVR, AVL ABNORMAL ECG Compared to ECG 02/11/2025 18:08:02 Atrial fibrillation no longer present Electronically Signed On 02-12-2025 06:05:41 [employer] INSPECTION AND REPAIR MANAGER by Jay Morton D.O.
[2025-02-11 21:51] LABS: Troponin I < 0.012 ng/mL (0.000-0.034)
[2025-02-11] MEDS: ENOXAPARIN 100 MG/ML SYRINGE SUB-Q (22:18)
[2025-02-11] MEDS: ENOXAPARIN 30 MG/0.3 ML SYRINGE SUB-Q (22:18)
[2025-02-11] MEDS: POTASSIUM CHLORIDE 20 MEQ PACKET (FOR LIQUID) PO (22:27)
--- NOTE | 2025-02-11 22:32 | WPCEDHO ---
ED Hand Off Checklist All vitals saved:Y IV Site documented:Y All med administrations documented:Y Triage Note Triage Note Pt to the ED via EMS coming from 02/11/25 18:01 home with complaints of abd pain, vomiting, and headache. Tachycardia . No cardiac HX Allergies morphine Allergy (Unknown, Verified 02/11/25 18:24) Itching Family History (Last Reviewed 10/24/23 @ 16:08 by Jonnie Raygoza MD) Father Diabetes mellitus Hypertension Mother Hypertension Family history of elevated blood lipids Other Family history of chronic obstructive pulmonary disease Active Medications including assessments/comments Diltiazem HCl (Cardizem 100 Mg/100 Ml) 100 mg in 100 mls @ 15 mls/hr IV CONT .Q6H40M STA; Protocol Stop: 02/12/25 00:49 Last Titration: 02/11/25 20:56 Dose: 15 mg/hr, 15 mls/hr Documented By: [facility] Infusion/Titration Document 02/11/25 20:56 [facility] (Rec: 02/11/25 20:56 [facility] [id number]) Intake Intake 17.8 Cumulative Intake ( 22.2 bag) Cumulative Intake ( 22.2 Rx) Container Volume 77.8 Waste Amount 0 Dosing Dose Rate 15 Infusion Rate 15 Cumulative Dose 22.2 Increase/Decrease Increased Elapsed Time Elapsed Time ( 2h 40m minutes) Diltiazem Infusion Assessment Document 02/11/25 20:56 [facility] (Rec: 02/11/25 20:56 [facility] [id number]) Infusion Action Diltiazem Infusion Titrated/Rate Changed Action Pulse Pulse Rate (60-100) 110 H Blood Pressure Blood Pressure (100/ 113/82 60-140/90) Blood Pressure Mean 92 Titration: 02/11/25 19:09 Dose: 10 mg/hr, 10 mls/hr Documented By: ANT Infusion/Titration Document 02/11/25 19:09 ANT (Rec: 02/11/25 19:10 ANT [id number]) Intake IV Site Peripheral Access Right Antecubital Intake 4.4 Cumulative Intake ( 4.4 bag) Cumulative Intake ( 4.4 Rx) Container Volume 95.6 Waste Amount 0 Dosing Dose Rate 10 Infusion Rate 10 Cumulative Dose 4.4 Increase/Decrease Increased Elapsed Time Elapsed Time ( 53m minutes) Diltiazem Infusion Assessment Document 02/11/25 19:09 ANT (Rec: 02/11/25 19:10 ANT [id number]) Infusion Action Diltiazem Infusion Titrated/Rate Changed Action Pulse Pulse Rate (60-100) 180 H Blood Pressure Blood Pressure (100/ 127/94 H 60-140/90) Blood Pressure Mean 105 Admin: 02/11/25 18:16 Dose: 5 mg/hr, 5 mls/hr Documented By: IRAIS Infusion/Titration Document 02/11/25 18:16 ANT (Rec: 02/11/25 18:17 ANT [id number]) Intake IV Site Peripheral Access Right Antecubital Container Volume 100 Waste Amount 0 Dosing Dose Rate 5 Infusion Rate 5 Increase/Decrease Started Elapsed Time Elapsed Time ( 0m minutes) Diltiazem Infusion Assessment Document 02/11/25 18:16 ANT (Rec: 02/11/25 18:17 ANT [id number]) Infusion Action Diltiazem Infusion Initiated Action Pulse Pulse Rate (60-100) 181 H Blood Pressure Blood Pressure (100/ 128/98 H 60-140/90) Blood Pressure Mean 108 Magnesium Sulfate (Magnesium Sulf 2 Gm/Water 50ml) 2 gm in 50 mls @ 25 mls/hr IVPB ONCE STA Stop: 02/11/25 23:24 Last Admin: 02/11/25 22:17 Dose: 25 mls/hr Documented By: RAGINI Co-signed By: SASHA Infusion/Titration Document 02/11/25 22:17 [facility] (Rec: 02/11/25 22:17 [facility] [id number]) Co-signed By Elizabeth Goldman RN Intake IV Site Peripheral Access Right Antecubital Container Volume 50 Waste Amount 0 Dosing Infusion Rate 25 Increase/Decrease Started Elapsed Time Elapsed Time ( 0m minutes) Magnesium Sulfate Infusion Document 02/11/25 22:17 [facility] (Rec: 02/11/25 22:17 [facility] [id number]) Co-signed By Elizabeth Goldman RN Infusion Action Magnesium Sulfate Initiated Infusion Action Administered/Completed Medications Discontinued Medications Diltiazem HCl (Diltiazem Hcl Inj 25 Mg/5 Ml Vial) 10 mg IV PUSH ONCE STA Stop: 02/11/25 18:11 Last Admin: 02/11/25 18:15 Dose: 10 mg Documented By: ANT Diltiazem HCl (Diltiazem Hcl Inj 25 Mg/5 Ml Vial) 10 mg IV PUSH ONCE STA Stop: 02/11/25 18:32 Last Admin: 12/02/25 19:23 Dose: 10 mg Documented By: RAGINI Enoxaparin Sodium (Enoxaparin 100 Mg/Ml Syringe) 100 mg SUB-Q ONCE STA Stop: 02/11/25 21:25 Last Admin: 02/11/25 22:18 Dose: 100 mg Documented By: RAGINI Enoxaparin Sodium (Enoxaparin 30 Mg/0.3 Ml Syringe) 30 mg SUB-Q ONCE STA Stop: 02/11/25 21:25 Last Admin: 02/11/25 22:18 Dose: 30 mg Documented By: RAGINI Sodium Chloride (Normal Saline Iv) 1,000 mls @ 999 mls/hr IV CONT .Q1H1M STA Stop: 02/11/25 19:58 Last Infusion: 02/11/25 20:15 Dose: Infused Documented By: Admin: 02/11/25 19:18 Dose: 999 mls/hr Documented By: RAGINI Magnesium Sulfate (Magnesium Sulf 2 Gm/Water 50ml) 2 gm in 50 mls @ 25 mls/hr IVPB ONCE STA Stop: 02/11/25 21:33 Last Infusion: 02/11/25 21:42 Dose: Infused Documented By: Admin: 02/11/25 19:53 Dose: 25 mls/hr Documented By: RAGINI Co-signed By: ANANT Ondansetron HCl (Ondansetron Inj 4 Mg/2 Ml Vial) 4 mg IV PUSH ONCE STA Stop: 02/11/25 19:22 Last Admin: 02/11/25 19:23 Dose: 4 mg Documented By: RAGINI Potassium Chloride (Potassium Chloride 20 Meq Er Tablet) 20 meq PO ONCE STA Stop: 02/11/25 21:25 Last Admin: 02/11/25 22:27 Dose: Not Given Documented By: RAGINI Non-Admin Reason: Order Discontinued Potassium Chloride (Potassium Chloride 20 Meq Packet (For Liquid)) 20 meq PO ONCE STA Stop: 02/11/25 22:23 Last Admin: 02/11/25 22:27 Dose: 20 meq Documented By: RAGINI Interventions/Assessments IV / Saline Lock, Insert Start: 02/11/25 18:07 Freq: STAT Status: Active Protocol: Document 02/11/25 18:07 ANT (Rec: 02/11/25 18:10 ANT [id number]) IV Assessment Peripheral Access Right Antecubital IV Catheter Access Initiated Before Arrival Catheter Gauge 20 IV Site Assessment WNL IV Care and WNL Maintenance PA: Cardiovascular Assessment Start: 02/11/25 18:01 Freq: Status: Active Protocol: Document 02/11/25 18:09 ANT (Rec: 02/11/25 18:09 ANT [id number]) Cardiovascular Assessment Cardiovascular Nausea,Vomiting Symptoms Skin Description Normal Color Jugular Vein None Distention Last Vital Signs Temperature 98.4 F 02/11/25 22:01 Pulse Rate 132 H 02/11/25 22:16 Respiratory Rate 21 H 02/11/25 22:16 Pulse Oximetry 100 02/11/25 22:01 Blood Pressure 158/109 H 02/11/25 22:16 Blood Pressure Mean 119 02/11/25 22:16 Oxygen Delivery Room Air 02/11/25 18:01 Weight 130.4 kg 02/11/25 18:01 Last Result - Abnormals Only Hgb 10.1 g/dL (12.0-15.0) L 02/11/25 18:36 Hct 36.2 % (37.0-47.0) L 02/11/25 18:36 MCV 68.2 fl (80-100) L 02/11/25 18:36 MCH 19.0 pg (26-34) L 02/11/25 18:36 MCHC 27.9 g/dl (32-36) L 02/11/25 18:36 RDW 21.1 % (11.5-14.5) H 02/11/25 18:36 Immature Gran % (Auto) 0.7 % (0-0.5) H 02/11/25 18:36 Neut % (Auto) 82.1 % (45.5-73.1) H 02/11/25 18:36 Lymph % (Auto) 10.0 % (18.3-44.2) L 02/11/25 18:36 Lymph # (Auto) 0.73 K/mm3 (0.9-3.2) L 02/11/25 18:36 Abs Immat Gran (auto) 0.05 K/mm3 (0.00-0.031) H 02/11/25 18:36 Sodium 135 mmol/L (137-145) L 02/11/25 18:36 Creatinine 0.51 mg/dL (0.7-1.0) L 02/11/25 18:36 Glucose 139 mg/dL (65-110) H 02/11/25 18:36 Magnesium 1.3 mg/dL (1.6-2.3) L 02/11/25 18:36 AST 62 U/L (14-36) H 02/11/25 18:36 Total Protein 8.8 g/dL (6.3-8.2) H 02/11/25 18:36 Most Recent Suicide Severity Rating Suicide Severity Rating NO RISK INDICATED 02/11/25 18:01
--- NOTE | 2025-02-11 23:08 | ADMIMU ---
This patient, Alisa Kiran, was admitted to IMU status, and placed in IMU Room 211-01 at 2251. Patient/family oriented to hospital policies and general routines including ID bracelet, bed and alarms, visiting hours, pain management, procedures, bathroom and other care routines, personal items, smoking policy, room service/diet, and visiting hours. Valuables list has been completed. Information on how to activate the Rapid Response Team has been discussed. Patient/Family are encouraged to report perceived risks to care and to ask questions if they do not understand what they are told or what they should do.
[2025-02-12] VITALS (26 sets, daily range): BP systolic 111–143; BP diastolic 66–99; PULSE 80–121; RESP 16–22; TEMP 36.6–36.9; O2SAT 98–100
--- NOTE | 2025-02-12 | ECHO_ITS ---
Patient Info Name: Alisa Kiran Age: 49 years : 1975 Gender: Female Ht: 65 in Wt: 285 lbs BSA: 2.51 m2 HR: 113 bpm BP: 121 / 99 mmHg Technical Quality: Fair Exam Date: 02/12/2025 9:48 AM Patient Status: O Admit Date: 02/11/2025 Exam Type: CA echo dop color flow w con Complete two-dimensional, color flow and Doppler transthoracic echocardiogram is performed with contrast to opacify the left ventricle and to improve the deliniation of the left ventricle endocardial borders. Staff Referring Physician: Mari Diaz PAC Bolting Machine Operator: Phillip Alvarez III Attending Provider: Afshan Hong Contrast/Agitated Saline Contrast/Ag. Saline: Definity Amount: 2.00 ml Administered By: Phillip Alvarez III Existing IV Access: Yes IV Access Condition: patent with no signs of infiltration Summary 1. Left ventricular systolic function is normal, estimated at 50-55. 2. The left ventricular diastolic function is grade I diastolic dysfunction. 3. Left atrial chamber dimension is normal. Left Ventricle Left ventricular chamber dimension is normal. Left ventricular systolic function is normal, estimated at 50-55. There is no increased left ventricular wall thickness. Left ventricular septal wall motion is normal. The left ventricular diastolic function is grade I diastolic dysfunction. Right Ventricle Right ventricular chamber dimension is normal. Right ventricular systolic function is normal. Left Atria Left atrial chamber dimension is normal. Right Atria Right atrial chamber dimension is normal. Aortic Valve The aortic valve is trileaflet. There is no aortic valve sclerosis. There is no aortic valve stenosis. There is no aortic valve regurgitation. Pulmonic Valve The pulmonic valve is normal. There is no pulmonic valve stenosis. There is no pulmonic regurgitation. Mitral Valve The mitral valve has normal leaflets. There is no mitral valve stenosis. There is no mitral valve regurgitation. Tricuspid Valve The tricuspid valve leaflets are normal. There is no significant tricuspid valve stenosis. There is no tricuspid valve regurgitation. Pericardium/Pleural The pericardium appears normal. There is no pericardial effusion. Inferior Vena Cava Normal inferior vena cava with >50% collapse upon inspiration consistent with normal right atrial pressure, 5 mmHg. Aorta The aortic root size at the sinus of Valsalva is normal. The prox ascending aorta size is normal. Left Ventricular Outflow Tract Name Value Normal LVOT 2D LVOT Diameter 2.2 cm LVOT Doppler LVOT Peak Velocity 110 cm/s LVOT Peak Gradient 5 mmHg LVOT Mean Gradient 2 mmHg LVOT VTI 22 cm LVOT VTI/AV VTI Ratio 1.0 LVOT Stroke Volume 87 ml LVOT CO 7.0 l/min LVOT CI 2.8 l/min/m2 Pulmonic Valve Name Value Normal PV Doppler PV Peak Velocity 87 cm/s PV Peak Gradient 3 mmHg PV Mean Gradient 2 mmHg Mitral Valve Name Value Normal MV Doppler MV Peak Gradient 4 mmHg MV Mean Gradient 2 mmHg MV Area (Cont Eq VTI) 3.8 cm2 MV Diastolic Function MV E Peak Velocity 74 cm/s MV A Peak Velocity 91 cm/s MV E/A 0.8 MV Decel Time (PW) 195 ms MV Annular TDI MV E/e' (Septal) 8.1 MV E/e' (Lateral) 9.4 MV E/e' (Average) 8.7 Tricuspid Valve Name Value Normal Estimated PAP/RSVP RA Pressure 5 mmHg <=5 TV Annular TDI TV Lateral Glenna s' Velocity 11.8 cm/s >=9.5 Aortic Valve Name Value Normal AV Doppler AV Peak Velocity 141 cm/s AV Peak Gradient 6 mmHg AV Mean Gradient 3 mmHg AV VTI 23 cm AV Area (Cont Eq VTI) 3.8 cm2 >=3.0 AV Area (Cont Eq Tello) 3.0 cm2 AV DI (Tello) 0.78 AV Regurgitation 2D LVOT Area 3.9 cm2 Ventricles Name Value Normal LV Dimensions 2D/MM IVS Diastolic Thickness (2D) 0.8 cm 0.6-1.0 LVID Diastole (2D) 4.6 cm 3.8-5.2 LVIW Diastolic Thickness (2D) 0.9 cm 0.6-0.9 LVID Systole (2D) 3.3 cm 2.2-3.5 LVOT Diameter 2.2 cm LV Mass (2D Cubed) 133.96 g 67.00-162.00 LV Mass Index (2D Cubed) 53 g/m2 43-95 Relative Wall Thickness (2D) 0.41 <=0.42 LV Fractional Shortening/Ejection Fraction 2D/MM LV Fractional Shortening (2D) 27 % 27-45 LV EF (2D Teichholz) 52 % LV Diastolic Volume (4C MOD) 117 ml LV EF (4C MOD) 52 % LV Diastolic Volume (2C MOD) 142 ml LV EF (2C MOD) 64 % LV Diastolic Volume (BP MOD) 130 ml 46-106 LV Diastolic Volume Index (BP MOD) 52 ml/m2 29-61 LV Systolic Volume (BP MOD) 54 ml 14-42 LV Systolic Volume Index (BP MOD) 22 ml/m2 8-24 LV EF (BP MOD) 58 % 54-74 LV Diastolic Length (4C) 8.7 cm LV Systolic Length (4C) 6.6 cm LV Stroke Volume (4C MOD) 61 ml Atria Name Value Normal LA Dimensions LA Volume (4C A-L) 39 ml LA Volume (BP A-L) 52 ml Report Signatures
--- NOTE | 2025-02-12 00:35 | P.HP_ITS ---
H&P: HPI History of Present Illness Date/Time: 02/12/25 00:35 Chief Complaint: Nausea, dizziness, lack of appetite Narrative: 49-year-old female with PMH asthma, obesity class 3, iron deficiency anemia, hypertension presents [facility] ER on 02/11/2025 with 3 days of nausea, lack of appetite, dizziness, shortness of breath. She reports having a history of preeclampsia and at that time she had an irregular heart rate but no diagnosis or management thereafter. On presentation heart rate in the 200s. EKG demonstrates AFib with RVR. CTA chest abdomen pelvis negative for PE, does reveal infiltrate of fat within the cecum, ascending and transverse colon wall suggestive of chronic inflammatory colitis. Hemoglobin 10.1, INR 1.0, potassium 3.5, serum creatinine 0.51, magnesium 1.3, troponin negative x2. Patient given diltiazem 10 mg IV push x2, for Gram magnesium, KCl 20 mEq, in ox at [place] 130 mg subQ x1. Heart rate uncontrolled, started on diltiazem GTT at 50 milligrams/hour. Improved to 120 's. Cardiology consulted from the ER. Patient reports significant improvement in her symptoms after heart rate improved. Review of Systems Review of Systems: All systems reviewed & are unremarkable except as noted in HPI and below (Subjective) PMFSH Past Medical History Medical History Anemia Asthma Morbid obesity Surgical History Surgical History H/O section H/O gastric bypass Hx of appendectomy Hx of cholecystectomy Family History Family History Father Diabetes mellitus Hypertension Mother Hypertension Family history of elevated blood lipids Other Family history of chronic obstructive pulmonary disease Social History Social History Social History: The patient is a lifelong nonsmoker. She lives with the 1 ild that she has. She only has the 1 child. The patient does not have a durable power staff attorney for healthcare. The patient works for for the [employer]. She denies any marijuana, alcohol, or illicit drugs. She is a lifelong nonsmoker. Code status full code Smoking status: Never smoker Second hand tobacco smoke exposure: No Alcohol intake: unknown Substance use: never Lack of Transportation: No Lack of Food: Never True Current Housing: I Have Housing Concerned About Future Housing: No Difficulty Paying Gas/Electric Bills: No Difficulty Paying for Meds: No Currently Unemployed: No Education: Bachelor's Degree Difficulty w/ Childcare or Family Care: No Gender identity (if verbalized by the patient): Female Spiritual care concerns: No Meds Home Medications and Allergies Home Medications ?Medication ?Instructions ?Recorded ?Confirmed ?Type albuterol sulfate 90 mcg/actuation 2 puff inhalation Q ID PRN Wheezing 07/07/21 02/11/25 History aerosol inhaler leg brace (Ankle Support) #1 ea 07/07/21 02/11/25 Rx ciprofloxacin 500 mg/5 mL oral 500 mg (5 mL) PO Q12H # 70 mL 10/06/21 02/11/25 Rx suspension (Cipro) ondansetron HCl 4 mg/5 mL oral 4 mg (5 mL) PO Q8H PRN nausea and 10/06/21 02/11/25 Rx solution vomiting #50 mL lidocaine 5 % topical patch 1 patch topical DAILY #30 ea 07/02/23 02/11/25 Rx benzonatate 100 mg capsule 200 mg (2 x 100 mg) PO TID PRN 10/24/23 02/11/25 Rx cough #40 caps ipratropium bromide 42 mcg (0.06 2 spray intranasal QI D 7 days #15 10/24/23 02/11/25 Rx %) nasal spray mL cephalexin 500 mg capsule 500 mg PO Q8H 7 days #21 cap s 10/28/23 02/11/25 Rx losartan 50 mg tablet 50 mg PO DAILY HTN 02/11/25 02/11/25 History Allergies Allergy/AdvReac Type Severity Reaction Status Date / Time morphine Allergy Unknown Itching Verified 02/11/25 23:13 Vital Signs Vital Signs - 24 hr 02/11/25 18:01 02/11/25 18:16 02/11/25 18:30 Temperature 97.6 F Pulse Rate 202 H 181 H 152 H Respiratory Rate 17 34 H Blood Pressure 128/98 H 128/98 H 108/86 Pulse Oximetry 99 99 Oxygen Delivery Room Air 02/11/25 18:46 02/11/25 18:57 02/11/25 19:01 Temperature Pulse Rate 170 H 166 H 175 H Respiratory Rate 36 H 19 20 Blood Pressure 112/80 106/85 127/94 H Pulse Oximetry 100 100 98 Oxygen Delivery 02/11/25 19:09 02/11/25 19:17 02/11/25 19:31 Temperature Pulse Rate 180 H 171 H 132 H Respiratory Rate 20 21 H Blood Pressure 127/94 H 110/81 117/100 H Pulse Oximetry 99 100 Oxygen Delivery 02/11/25 19:53 02/11/25 20:01 02/11/25 20:16 Temperature 98.5 F Pulse Rate 109 H 105 H 108 H Respiratory Rate 20 23 H 23 H Blood Pressure 123/93 H 124/98 H 104/73 Pulse Oximetry 99 100 100 Oxygen Delivery 02/11/25 20:31 02/11/25 20:46 02/11/25 20:56 Temperature 98.7 F Pulse Rate 106 H 108 H 110 H Respiratory Rate 16 17 Blood Pressure 113/85 113/82 113/82 Pulse Oximetry 100 100 Oxygen Delivery 02/11/25 21:01 02/11/25 21:17 02/11/25 21:20 Temperature Pulse Rate 122 H 110 H 111 H Respiratory Rate 27 H 21 H 18 Blood Pressure 105/75 113/101 H 128/83 Pulse Oximetry 99 100 Oxygen Delivery 02/11/25 21:32 02/11/25 22:01 02/11/25 22:16 Temperature 98.4 F Pulse Rate 109 H 124 H 132 H Respiratory Rate 18 20 21 H Blood Pressure 92/71 L 138/102 H 158/109 H Pulse Oximetry 100 100 Oxygen Delivery 02/11/25 22:55 02/11/25 23:42 02/12/25 00:00 Temperature 98.1 F 97.9 F Pulse Rate 120 H 120 H 110 H Respiratory Rate 18 16 Blood Pressure 124/94 H 124/94 H 143/77 H Pulse Oximetry 100 100 Oxygen Delivery Exam Const: General: comfortable and no acute distress Other: A&O x4 HENMT: Mouth: Yes moist mucous membranes Eyes: Pupils: Equal, round and reactive pupils present Neck: Neck: supple Resp: Effort & Inspection: normal respiratory effort Auscultation: clear to auscultation bilaterally Cardio: Rate: tachycardic Rhythm: abnormal rhythm GI: Inspection: non-distended GI Palp: Yes Soft to palpation Auscultation: normal bowel sounds : General: Yes bladder normal to palpation Neuro: Motor exam (neuro): 5/5 motor strength present throughout Extrem: General: no edema Results Labs Labs: Short CBC 02/11/25 Range/Units 18:36 WBC 7.3 (4.5-10.0) K/mm3 Hgb 10.1 L (12.0-15.0) g/dL Hct 36.2 L (37.0-47.0) % Plt Count 326 D (150-375) k/mm3 BMP 02/11/25 18:36 Sodium 135 L Potassium 3.5 Chloride 101 Carbon Dioxide 24 BUN 9 Creatinine 0.51 L Glucose 139 H Calcium 9.1 Cardiac Enzymes 02/11/25 02/11/25 Range/Units 18:36 21:20 Troponin I < 0.012 < 0.012 (0.000-0.034) ng/mL Liver Function 02/11/25 Range/Units 18:36 Total Bilirubin 1.3 (0.2-1.3) mg/dL AST 62 H (14-36) U/L ALT 32 (6-35) U/L Alkaline Phosphatase 102 (38-126) U/L Albumin 4.2 (3.5-5.1) g/dL Assessment and Plan Assessment and plan (1) Atrial fibrillation with RVR: Code(s): I48.91 - Unspecified atrial fibrillation Status: Acute (2) Electrolyte abnormality: Code(s): E87.8 - Other disorders of electrolyte and fluid balance, not elsewhere classified Status: Acute Plan 49-year-old female with PMH asthma, obesity class 3, iron deficiency anemia, hypertension presents [facility] ER on 02/11/2025 with 3 days of nausea, lack of appetite, dizziness, shortness of breath. She reports having a history of preeclampsia and at that time she had an irregular heart rate but no diagnosis or management thereafter. On presentation heart rate in the 200s. EKG demonstrates AFib with RVR. CTA chest abdomen pelvis negative for PE, does reveal infiltrate of fat within the cecum, ascending and transverse colon wall suggestive of chronic inflammatory colitis. Hemoglobin 10.1, INR 1.0, potassium 3.5, serum creatinine 0.51, magnesium 1.3, troponin negative x2. Patient given diltiazem 10 mg IV push x2, for Gram magnesium, KCl 20 mEq, in ox at [place] 130 mg subQ x1. Heart rate uncontrolled, started on diltiazem GTT at 50 milligrams/hour. Improved to 120's. Cardiology consulted from the ER. Patient reports significant improvement in her symptoms after heart rate improved. ----- AFib with RVR -improved on diltiazem GTT. Cardiology consultation. Keep potassium greater than 4, magnesium greater than 2. Check TSH. Admit to telemetry. Transthoracic echocardiogram pending. Continue therapeutic Lovenox dosing. Monitor hemoglobin. Hypertension -hold VICE PRESIDENT OF ENGINEERING losartan, currently on diltiazem GTT ----- Patient wishes to be full code Heart healthy diet Telemetry Expected length of stay greater than 2 midnights Prior Studies I have reviewed the following patient records and this information was taken in to consideration when formulating the assessment and plan.: previous labs Time Spent with Patient Time with patient: less than 45 minutes Hospitalist MIPS Advance Care Plan I have confirmed that the patient's Advanced Care Plan is present, code status is documented, or surrogate decision maker is listed in patient medical record.: Yes Medication Reconciliation I have utilized all available resources to obtain, update and review the patients current medications (includes all prescriptions, OTC, herbals, cannabis, and nutritional supplements).: Yes
[2025-02-12 00:48] LABS: Troponin I < 0.012 ng/mL (0.000-0.034)
[2025-02-12] MEDS: dilTIAZem 100 MG/100 ML 100 MG/100 ML BAG 15 MG IV CONT ×2 (01:49→06:37)
[2025-02-12 04:23] LABS: Hematocrit 31.7 % (37.0-47.0); Hemoglobin 8.8 g/dL (12.0-15.0); Mean Corpuscular HGB Conc 27.8 g/dl (32-36); Mean Corpuscular Hemoglobin 19.0 pg (26-34); Mean Corpuscular Volume 68.5 fl (80-100); Platelet Count Result 274 k/mm3 (150-375); Red Blood Count 4.63 M/mm3 (4.2-5.4); White Blood Count 7.6 K/mm3 (4.5-10.0)
[2025-02-12 04:45] LABS: Anion Gap 5 mmol/L (4-12); Blood Urea Nitrogen 9 mg/dL (7-17); Calcium 8.9 mg/dL (8.4-10.2); Carbon Dioxide 27 mmol/L (22-30); Chloride 99 mmol/L (98-107); Estimated CRCL calculation 152 ml/min; Estimated Glomerular Filt Rate > 60; Glucose 111 mg/dL (65-110); Magnesium 2.3 mg/dL (1.6-2.3); Potassium 3.4 mmol/L (3.4-5.0); Sodium 131 mmol/L (137-145)
[2025-02-12 05:15] LABS: Thyroid Stimulating Hormone Reflex 1.330 uIU/mL (0.465-4.68)
--- NOTE | 2025-02-12 07:15 | P.CONCA_ITS ---
Assessment and Plan Assessment and plan (1) Atrial fibrillation with RVR: Code(s): I48.91 - Unspecified atrial fibrillation Status: Acute Assessment and Plan: 49-year-old female with past medical history of hypertension, anemia, asthma, morbid obesity with a new onset AFib with RVR -TSH within normal limits -obtain TTE -outpatient stress test -continue Cardizem drip with target HR <90 -start metoprolol 25 mg po bid and wean cardizem drip -continue to monitor on telemetry -check and replace electrolytes to keep K>4 and Mg>2 -chads Vasc 2 score of 2 (female= 1, hypertension= 1). Stop Lovenox and start Eliquis for anticoagulation -event monitor at discharge to evaluate burden of AFib -evaluated treated he may a per primary team -continue losartan 50 mg daily for control of blood pressure History of Present Illness History of Present Illness Consult date/time: 02/12/25 07:15 Reason For Visit: Afib with RVA Narrative: 49-year-old female with past medical history of hypertension, anemia, asthma, morbid obesity presents with chief complaints of acute onset nausea, vomiting, palpitations, and sharp neck and left-sided chest pain for the past 3 days. Patient was not able to keep anything down and did not feel hungry to eat. She felt extremely tired. She had sharp shooting pains in her neck and left chest off and on. She had palpitations off and on. No exertional chest pain prior to this. She states she has a murmur. She then presented to the ER with these symptoms. EKG showed atrial fibrillation with RVR with rates are in the 190s. She was started on a Cardizem drip and therapeutic Lovenox. She converted back to sinus rhythm and her symptoms have resolved. No dizziness, lightheadedness, presyncope, syncope, leg swelling, recent weight gain, orthopnea, PND. Cardiology is consulted for further recommendations for new onset AFib with RVR. Workup: Hemoglobin 8.8 Creatinine 0.5 Troponin less than 0.012 X 3 Chest x-ray: No acute cardiopulmonary pathology EKG: AFib with RVR Repeat EKG: Sinus tachycardia CT chest abdomen pelvis: IMPRESSION: 1. No thoracic or abdominal aortic aneurysm is evident. There is no dissection. 2. No acute abnormality is noted in the chest, abdomen and pelvis. 3. Infiltrative fat within the cecum, ascending and transverse colon wall suggestive of chronic inflammatory colitis. Review of Systems 2 Review of Systems: A complete review of systems was performed and pertinent positives are reported in HPI. [facility] Past Medical History Medical History Anemia Asthma Morbid obesity Surgical History Surgical History H/O section H/O gastric bypass Hx of appendectomy Hx of cholecystectomy Family History Family History Father Diabetes mellitus Hypertension Mother Hypertension Family history of elevated blood lipids Other Family history of chronic obstructive pulmonary disease Social History Social History Social History: The patient is a lifelong nonsmoker. She lives with the 1 child that she has. She only has the 1 child. The patient does not have a durable power aircraft pilot for healthcare. The patient works for for the [employer]. She denies any marijuana, alcohol, or illicit drugs. She is a lifelong nonsmoker. Code status full code Smoking status: Never smoker Second hand tobacco smoke exposure: No Alcohol intake: unknown Substance use: never Lack of Transportation: No Lack of Food: Never True Current Housing: I Have Housing Concerned About Future Housing: No Difficulty Paying Gas/Electric Bills: No Difficulty Paying for Meds: No Currently Unemployed: No Education: Bachelor's Degree Difficulty w/ Childcare or Family Care: No Gender identity (if verbalized by the patient): Female Spiritual care concerns: No Meds Home Medications and Allergies Home Medications ?Medication ?Instructions ?Recorded ?Confirmed ?Type albuterol sulfate 90 mcg/actuation 2 puff inhalation Q ID PRN Wheezing 07/07/21 02/11/25 History aerosol inhaler leg brace (Ankle Support) #1 ea 07/07/21 02/11/25 Rx ciprofloxacin 500 mg/5 mL oral 500 mg (5 mL) PO Q12H # 70 mL 10/06/21 02/11/25 Rx suspension (Cipro) ondansetron HCl 4 mg/5 mL oral 4 mg (5 mL) PO Q8H PRN nausea and 10/06/21 02/11/25 Rx solution vomiting #50 mL lidocaine 5 % topical patch 1 patch topical DAILY #30 ea 07/02/23 02/11/25 Rx benzonatate 100 mg capsule 200 mg (2 x 100 mg) PO TID PRN 10/24/23 02/11/25 Rx cough #40 caps ipratropium bromide 42 mcg (0.06 2 spray intranasal QI D 7 days #15 10/24/23 02/11/25 Rx %) nasal spray mL cephalexin 500 mg capsule 500 mg PO Q8H 7 days #21 cap s 10/28/23 02/11/25 Rx losartan 50 mg tablet 50 mg PO DAILY HTN 02/11/25 02/11/25 History Allergies Allergy/AdvReac Type Severity Reaction Status Date / Time morphine Allergy Unknown Itching Verified 02/11/25 23:13 Vital Signs Vital Signs - 24 hr 02/11/25 18:01 02/11/25 18:16 02/11/25 18:30 Temperature 36.4 C Pulse Rate 202 H 181 H 152 H Respiratory Rate 17 34 H Blood Pressure 128/98 H 128/98 H 108/86 Pulse Oximetry 99 99 Oxygen Delivery Room Air 02/11/25 18:46 02/11/25 18:57 02/11/25 19:01 Temperature Pulse Rate 170 H 166 H 175 H Respiratory Rate 36 H 19 20 Blood Pressure 112/80 106/85 127/94 H Pulse Oximetry 100 100 98 Oxygen Delivery 02/11/25 19:09 02/11/25 19:17 02/11/25 19:31 Temperature Pulse Rate 180 H 171 H 132 H Respiratory Rate 20 21 H Blood Pressure 127/94 H 110/81 117/100 H Pulse Oximetry 99 100 Oxygen Delivery 02/11/25 19:53 02/11/25 20:01 02/11/25 20:16 Temperature 36.9 C Pulse Rate 109 H 105 H 108 H Respiratory Rate 20 23 H 23 H Blood Pressure 123/93 H 124/98 H 104/73 Pulse Oximetry 99 100 100 Oxygen Delivery 02/11/25 20:31 02/11/25 20:46 02/11/25 20:56 Temperature 37.1 C Pulse Rate 106 H 108 H 110 H Respiratory Rate 16 17 Blood Pressure 113/85 113/82 113/82 Pulse Oximetry 100 100 Oxygen Delivery 02/11/25 21:01 02/11/25 21:17 02/11/25 21:20 Temperature Pulse Rate 122 H 110 H 111 H Respiratory Rate 27 H 21 H 18 Blood Pressure 105/75 113/101 H 128/83 Pulse Oximetry 99 100 Oxygen Delivery 02/11/25 21:32 02/11/25 22:01 02/11/25 22:16 Temperature 36.9 C Pulse Rate 109 H 124 H 132 H Respiratory Rate 18 20 21 H Blood Pressure 92/71 L 138/102 H 158/109 H Pulse Oximetry 100 100 Oxygen Delivery 02/11/25 22:55 02/11/25 23:42 02/12/25 00:00 Temperature 36.7 C 36.6 C Pulse Rate 120 H 120 H 110 H Respiratory Rate 18 16 Blood Pressure 124/94 H 124/94 H 143/77 H Pulse Oximetry 100 100 Oxygen Delivery 02/12/25 00:00 02/12/25 01:49 02/12/25 01:57 Temperature Pulse Rate 103 H 112 H 117 H Respiratory Rate Blood Pressure 114/66 Pulse Oximetry Oxygen Delivery 02/12/25 04:00 02/12/25 04:00 02/12/25 04:00 Temperature 36.8 C Pulse Rate 102 H 111 H 102 H Respiratory Rate 18 Blood Pressure 126/77 126/77 Pulse Oximetry 100 Oxygen Delivery 02/12/25 06:00 02/12/25 06:00 02/12/25 06:02 Temperature Pulse Rate 121 H 102 H 106 H Respiratory Rate Blood Pressure 121/99 H 121/99 H Pulse Oximetry Oxygen Delivery 02/12/25 06:37 02/12/25 06:37 Temperature Pulse Rate 113 H 113 H Respiratory Rate Blood Pressure 121/99 H 121/99 H Pulse Oximetry Oxygen Delivery Exam 2 Narrative: General: Alert oriented x3, no acute distress Neck: Supple, no JVD Chest: Bilaterally clear to auscultation, no rales or rhonchi Cardiac: S1, S2 +, tachycardic, regular rhythm, no murmurs or rubs Extremities: No pedal edema, no skin rash Neurologic: Alert and oriented x3, no focal neurological deficits Results Labs and Meds 02/12/25 03:56 02/12/25 03:56 Lab results: Cardiac Enzymes 02/11/25 02/11/25 02/12/25 Range/Units 18:36 21:20 00:17 AST 62 H (14-36) U/L Troponin I < 0.012 < 0.012 < 0.012 (0.000-0.034) ng/mL Coagulation 02/11/25 Range/Units 18:36 PT 13.8 (11.1-14.7) Seconds APTT 23.1 (22.3-36.8) Seconds CBC 02/11/25 02/12/25 Range/Units 18:36 03:56 WBC 7.3 7.6 (4.5-10.0) K/mm3 RBC 5.31 4.63 (4.2-5.4) M/mm3 Hgb 10.1 L 8.8 L (12.0-15.0) g/dL Hct 36.2 L 31.7 L (37.0-47.0) % Plt Count 326 D 274 (150-375) k/mm3 Lymph # (Auto) 0.73 L (0.9-3.2) K/mm3 Dane # (Auto) 0.5 (0.1-0.6) K/mm3 Eos # (Auto) 0.0 (0-0.3) K/mm3 Baso # (Auto) 0.0 (0.0-0.1) K/mm3 Comprehensive Metabolic Panel 02/11/25 02/12/25 Range/Units 18:36 03:56 Sodium 135 L 131 L (137-145) mmol/L Potassium 3.5 3.4 (3.4-5.0) mmol/L Chloride 101 99 (98-107) mmol/L Carbon Dioxide 24 27 (22-30) mmol/L BUN 9 9 (7-17) mg/dL Creatinine 0.51 L 0.50 L (0.7-1.0) mg/dL Glucose 139 H 111 H (65-110) mg/dL Calcium 9.1 8.9 (8.4-10.2) mg/dL AST 62 H (14-36) U/L ALT 32 (6-35) U/L Alkaline Phosphatase 102 (38-126) U/L Total Protein 8.8 H (6.3-8.2) g/dL Albumin 4.2 (3.5-5.1) g/dL Intake and Output 02/11/25 02/11/25 02/12/25 15:59 23:59 07:59 Intake Total 1113.7 571.9 Output Total 100 Balance 1113.7 471.9 Intake: IV 1113.7 71.9 Sodium Chloride 0.9% IV 1,000 1000 ml @ 999 mls/hr IV CONT .Q1H1M [facility] Rx#:[id number] dilTIAZem 100 MG/100 ML 100 mg 63.7 71.9 In 100 ml @ 15 MG/HR 15 mls/hr IV CONT .Q6H40M [facility] Rx#: [id number] Magnesium Sulf 2 gm/Water 50Ml 50 2 gm In 50 ml @ 25 mls/hr IVPB ONCE STA Rx#:[id number] Oral 500 Output: Urine 100 Other: # Unmeasured Voids 1 Patient Weight 02/12/25 23:59 Weight 129.4 kg
[2025-02-12] MEDS: ENOXAPARIN 100 MG/ML SYRINGE SUB-Q ×2 (08:47→20:43)
[2025-02-12] MEDS: ENOXAPARIN 30 MG/0.3 ML SYRINGE SUB-Q ×2 (08:47→20:43)
[2025-02-12] MEDS: METOPROLOL TARTRATE 25 MG TABLET PO ×2 (09:17→16:49)
[2025-02-12] MEDS: POTASSIUM CHLORIDE 20 MEQ PACKET (FOR LIQUID) 40 MEQ PO (10:17)
[2025-02-12] MEDS: PERFLUTREN LIPID MICROSPHERES 1.5 ML VIAL DILUTED TO 10 ML TOTAL VOLUME IV PUSH (11:21)
--- NOTE | 2025-02-12 11:21 | IVDEFINITY ---
Prior to administration of IV Definity the patient was educated on the risks and benefits of the imaging enhancing agent including potential adverse side effects. The patient verbalized understanding. Allergies were verified. No exclusion criteria were identified and at least one of the following inclusion criteria were met: 1) physician request, 2) patient technically difficult to image (per the [place] [employer] Echocardi[employer] guidelines of two or more segments not discernable within the apical view), or 3) questionable left ventricular function. ?
--- NOTE | 2025-02-12 14:24 | P.PNIM_ITS ---
Assessment and Plan Assessment and Plan (1) Atrial fibrillation with RVR: Code(s): I48.91 - Unspecified atrial fibrillation Status: Acute Plan 49-year-old female with PMH asthma, obesity class 3, iron deficiency anemia, hypertension presents [facility] ER on 02/11/2025 with 3 days of nausea, lack of appetite, dizziness, shortness of breath. She reports having a history of preeclampsia and at that time she had an irregular heart rate but no diagnosis or management thereafter. CTA chest abdomen pelvis negative for PE, does reveal infiltrate of fat within the cecum, ascending and transverse colon wall suggestive of chronic inflammatory colitis. 1. AFib with RVR: Continue with tele monitoring Appreciate cardiology help Await echocardiogram Currently on Cardizem drip, plan to wean it off Continue with metoprolol Continue with therapeutic Lovenox Supplement potassium 2. DVT prophylaxis: On Lovenox 3. Code status: Full 4. Disposition: Pending improvement Subjective Date/time seen: 02/12/25 14:24 Interval history: No acute events overnight Review of Systems Review of Systems: All systems reviewed & are unremarkable except as noted in HPI and below Exam Const: General: comfortable and no acute distress Other: A&O x4 HENMT: Mouth: Yes moist mucous membranes Neck: Neck: supple Resp: Effort & Inspection: normal respiratory effort Auscultation: clear to auscultation bilaterally Cardio: Rhythm: abnormal rhythm GI: Inspection: non-distended GI Palp: Yes Soft to palpation Auscultation: normal bowel sounds : General: Yes bladder normal to palpation Neuro: Motor exam (neuro): 5/5 motor strength present throughout Extrem: General: no edema Objective Data Vital Signs Vital Signs: Vital Signs - 24 hr 02/11/25 18:01 02/11/25 18:16 02/11/25 18:30 Temperature 97.6 F Pulse Rate 202 H 181 H 152 H Respiratory Rate 17 34 H Blood Pressure 128/98 H 128/98 H 108/86 Pulse Oximetry 99 99 Oxygen Delivery Room Air 02/11/25 18:46 02/11/25 18:57 02/11/25 19:01 Temperature Pulse Rate 170 H 166 H 175 H Respiratory Rate 36 H 19 20 Blood Pressure 112/80 106/85 127/94 H Pulse Oximetry 100 100 98 Oxygen Delivery 02/11/25 19:09 02/11/25 19:17 02/11/25 19:31 Temperature Pulse Rate 180 H 171 H 132 H Respiratory Rate 20 21 H Blood Pressure 127/94 H 110/81 117/100 H Pulse Oximetry 99 100 Oxygen Delivery 02/11/25 19:53 02/11/25 20:01 02/11/25 20:16 Temperature 98.5 F Pulse Rate 109 H 105 H 108 H Respiratory Rate 20 23 H 23 H Blood Pressure 123/93 H 124/98 H 104/73 Pulse Oximetry 99 100 100 Oxygen Delivery 02/11/25 20:31 02/11/25 20:46 02/11/25 20:56 Temperature 98.7 F Pulse Rate 106 H 108 H 110 H Respiratory Rate 16 17 Blood Pressure 113/85 113/82 113/82 Pulse Oximetry 100 100 Oxygen Delivery 02/11/25 21:01 02/11/25 21:17 02/11/25 21:20 Temperature Pulse Rate 122 H 110 H 111 H Respiratory Rate 27 H 21 H 18 Blood Pressure 105/75 113/101 H 128/83 Pulse Oximetry 99 100 Oxygen Delivery 02/11/25 21:32 02/11/25 22:01 02/11/25 22:16 Temperature 98.4 F Pulse Rate 109 H 124 H 132 H Respiratory Rate 18 20 21 H Blood Pressure 92/71 L 138/102 H 158/109 H Pulse Oximetry 100 100 Oxygen Delivery 02/11/25 22:55 02/11/25 23:42 02/12/25 00:00 Temperature 98.1 F 97.9 F Pulse Rate 120 H 120 H 110 H Respiratory Rate 18 16 Blood Pressure 124/94 H 124/94 H 143/77 H Pulse Oximetry 100 100 Oxygen Delivery 02/12/25 00:00 02/12/25 01:49 02/12/25 01:57 Temperature Pulse Rate 103 H 112 H 117 H Respiratory Rate Blood Pressure 114/66 Pulse Oximetry Oxygen Delivery 02/12/25 04:00 02/12/25 04:00 02/12/25 04:00 Temperature 98.3 F Pulse Rate 102 H 111 H 102 H Respiratory Rate 18 Blood Pressure 126/77 126/77 Pulse Oximetry 100 Oxygen Delivery 02/12/25 06:00 02/12/25 06:00 02/12/25 06:02 Temperature Pulse Rate 121 H 102 H 106 H Respiratory Rate Blood Pressure 121/99 H 121/99 H Pulse Oximetry Oxygen Delivery 02/12/25 06:37 02/12/25 06:37 02/12/25 08:00 Temperature 97.8 F Pulse Rate 113 H 113 H 102 H Respiratory Rate 20 Blood Pressure 121/99 H 121/99 H 111/74 Pulse Oximetry 100 Oxygen Delivery 02/12/25 08:00 02/12/25 08:00 02/12/25 09:17 Temperature Pulse Rate 102 H 98 91 Respiratory Rate Blood Pressure 111/74 Pulse Oximetry Oxygen Delivery 02/12/25 09:18 02/12/25 10:00 02/12/25 10:27 Temperature Pulse Rate 92 85 88 Respiratory Rate Blood Pressure 139/78 Pulse Oximetry 100 Oxygen Delivery 02/12/25 11:15 02/12/25 11:41 02/12/25 11:43 Temperature 98.1 F Pulse Rate 90 92 85 Respiratory Rate 22 H Blood Pressure 137/85 137/85 137/85 Pulse Oximetry 98 Oxygen Delivery 02/12/25 12:00 02/12/25 13:20 Temperature Pulse Rate 82 99 Respiratory Rate Blood Pressure 141/89 H Pulse Oximetry Oxygen Delivery Intake/Output Intake/Output: Intake & Output 02/09/25 02/10/25 02/11/25 02/12/25 23:59 23:59 23:59 23:59 Intake Total 1113.7 644.4 Output Total 100 Balance 1113.7 544.4 Meds/Results Medications: Active Medications Generic Name Dose Route Start Last Admin Trade Name Freq PRN Reason Stop Dose Admin Enoxaparin Sodium 100 mg 02/12/25 09:00 02/12/25 08:47 Enoxaparin 100 Mg/Ml Syringe SUB-Q 100 mg Q12HR MAYANK Administration Enoxaparin Sodium 30 mg 02/12/25 09:00 02/12/25 08:47 Enoxaparin 30 Mg/0.3 Ml Syringe SUB-Q 30 mg Q12HR MAYANK Administration Diltiazem HCl 100 mg in 100 mls @ 5 mls/hr 02/12/25 01:25 02/12/25 13:20 Cardizem 100 Mg/100 Ml IV CONT 5 mg/hr .Q20H MAYANK 5 mls/hr 5 MG/HR Infusion Melatonin 3 mg 02/12/25 21:00 Melatonin 3 Mg Tablet PO HS MAYANK Metoprolol Tartrate 25 mg 02/12/25 12:00 02/12/25 09:17 Metoprolol Tartrate 25 Mg Tablet PO 25 mg Q6HR MAYANK Administration Radiology Results: ITS Impressions Chest X-Ray 02/11/25 18:52 IMPRESSION: No acute pulmonary findings. Chest/Abdomen/Pelvis CTA 02/11/25 20:00 IMPRESSION: 1. [No thoracic or abdominal aortic aneurysm is evident. There is no dissection.] 2. [No acute abnormality is noted in the chest, abdomen and pelvis.] 3. Infiltrative fat within the cecum, ascending and transverse colon wall suggestive of chronic inflammatory colitis. All CT scans at this facility are performed using low dose modulation techniques as appropriate to perform exam including the following: automated exposure control; use of iterative reconstruction technique; adjustment of the mA and/or kV according to patient size (this includes techniques or standardized protocols for targeted exams where dose is matched to indication/reason for exam). Labs Labs: Laboratory Results - last 24 hr 02/11/25 02/11/25 02/12/25 18:36 21:20 00:17 WBC 7.3 RBC 5.31 Hgb 10.1 L Hct 36.2 L MCV 68.2 L MCH 19.0 L MCHC 27.9 L RDW 21.1 H Plt Count 326 D MPV 9.0 Immature Gran % (Auto) 0.7 H Neut % (Auto) 82.1 H Lymph % (Auto) 10.0 L Campbell % (Auto) 6.7 Eos % (Auto) 0.0 Baso % (Auto) 0.5 Lymph # (Auto) 0.73 L Campbell # (Auto) 0.5 Eos # (Auto) 0.0 Baso # (Auto) 0.0 Abs Immat Gran (auto) 0.05 H Absolute Neuts (auto) 6.0 Absolute Nucleated RBC 0.000 Band Neutrophils % Not Reportable Nucleated RBC % 0.0 Platelet Estimate Adequate Hypochromasia 1+ Target Cells Occasional Schistocytes None seen PT 13.8 INR 1.0 APTT 23.1 Sodium 135 L Potassium 3.5 Chloride 101 Carbon Dioxide 24 Anion Gap 10 BUN 9 Creatinine 0.51 L Estim Creat Clear Calc 150 Estimated GFR > 60 Glucose 139 H Calcium 9.1 Magnesium 1.3 L Total Bilirubin 1.3 AST 62 H ALT 32 Alkaline Phosphatase 102 Troponin I < 0.012 < 0.012 < 0.012 Total Protein 8.8 H Albumin 4.2 Lipase 168 TSH (Reflex) 02/12/25 03:56 WBC 7.6 RBC 4.63 Hgb 8.8 L Hct 31.7 L MCV 68.5 L MCH 19.0 L MCHC 27.8 L RDW 21.0 H Plt Count 274 MPV 8.9 Immature Gran % (Auto) Neut % (Auto) Lymph % (Auto) Campbell % (Auto) Eos % (Auto) Baso % (Auto) Lymph # (Auto) Campbell # (Auto) Eos # (Auto) Baso # (Auto) Abs Immat Gran (auto) Absolute Neuts (auto) Absolute Nucleated RBC Band Neutrophils % Nucleated RBC % Platelet Estimate Hypochromasia Target Cells Schistocytes PT INR APTT Sodium 131 L Potassium 3.4 Chloride 99 Carbon Dioxide 27 Anion Gap 5 BUN 9 Creatinine 0.50 L Estim Creat Clear Calc 152 Estimated GFR > 60 Glucose 111 H Calcium 8.9 Magnesium 2.3 Total Bilirubin AST ALT Alkaline Phosphatase Troponin I Total Protein Albumin Lipase TSH (Reflex) 1.330 Quality VTE Prophylaxis VTE prophylaxis: pharmacologic ordered
[2025-02-12] MEDS: MELATONIN 3 MG TABLET PO (20:43)
[2025-02-13] VITALS (14 sets, daily range): BP systolic 117–138; BP diastolic 70–99; PULSE 82–103; RESP 16–24; TEMP 35.9–36.9; O2SAT 98–100
[2025-02-13] MEDS: METOPROLOL TARTRATE 25 MG TABLET PO ×3 (00:06→12:02)
[2025-02-13 04:47] LABS: Hematocrit 33.4 % (37.0-47.0); Hemoglobin 9.0 g/dL (12.0-15.0); Immature Granulocyte Percent A 0.4 % (0-0.5); Lymphocytes Absolute Auto 1.23 K/mm3 (0.9-3.2); Mean Corpuscular HGB Conc 26.9 g/dl (32-36); Mean Corpuscular Hemoglobin 19.0 pg (26-34); Mean Corpuscular Volume 70.6 fl (80-100); Nucleated Red Blood Cells Absolute Auto 0.000 K/mm3 (0.0-0.012); Nucleated Red Blood Cells Perc 0.0 % (0.0-0.2); Platelet Count Result 276 k/mm3 (150-375); Red Blood Count 4.73 M/mm3 (4.2-5.4); White Blood Count 5.6 K/mm3 (4.5-10.0)
[2025-02-13 05:05] LABS: Anion Gap 4 mmol/L (4-12); Blood Urea Nitrogen 10 mg/dL (7-17); Calcium 9.0 mg/dL (8.4-10.2); Carbon Dioxide 29 mmol/L (22-30); Chloride 100 mmol/L (98-107); Estimated CRCL calculation 142 ml/min; Estimated Glomerular Filt Rate > 60; Glucose 119 mg/dL (65-110); Magnesium 1.7 mg/dL (1.6-2.3); Potassium 3.9 mmol/L (3.4-5.0); Sodium 133 mmol/L (137-145)
[2025-02-13 05:13] LABS: Hypochromasia 2+; Ovalocytes 1+; Schistocytes None Seen; Target Cells 1+
[2025-02-13] MEDS: ENOXAPARIN 30 MG/0.3 ML SYRINGE SUB-Q (08:44)
[2025-02-13] MEDS: ENOXAPARIN 100 MG/ML SYRINGE SUB-Q (08:44)
--- NOTE | 2025-02-13 09:50 | P.PNCA_ITS ---
Progress Note: A&P Assessment and Plan (1) Atrial fibrillation with RVR: Code(s): I48.91 - Unspecified atrial fibrillation Status: Acute Plan 49-year-old female with past medical history of hypertension, anemia, asthma, morbid obesity with a new onset AFib with RVR. TSH within normal limits. TTE showed LVEF of 50-55%, grade 1 diastolic dysfunction and no significant valvular pathology. Metoprolol 25 mg p.o. q.6 hours was started and Cardizem drip was weaned off overnight. -outpatient stress test -Switch metoprolol to 50 mg p.o. b.i.d. today -check and replace electrolytes to keep K>4 and Mg>2 -chads Vasc 2 score of 2 (female= 1, hypertension= 1). Stop Lovenox and start Eliquis for anticoagulation -event monitor at discharge to evaluate burden of AFib -stop losartan at discharge as BP is controlled with metoprolol -follow-up with cardiology 1 month Thank you for allowing us to participate in the care of this patient. Cardiology will sign off. Please call us with any questions. Subjective Date/time seen: 02/13/25 09:50 Interval history: Reason for encounter: AFib with RVR Relevant history: 49-year-old female with past medical history of hypertension, anemia, asthma, morbid obesity presents with chief complaints of acute onset nausea, vomiting, palpitations, and sharp neck and left-sided chest pain for the past 3 days. Patient was not able to keep anything down and did not feel hungry to eat. She felt extremely tired. She had sharp shooting pains in her neck and left chest off and on. She had palpitations off and on. No exertional chest pain prior to this. She states she has a murmur. She then presented to the ER with these symptoms. EKG showed atrial fibrillation with RVR with rates are in the 190s. She was started on a Cardizem drip and therapeutic Lovenox. She converted back to sinus rhythm and her symptoms have resolved. Cardiology is consulted for further recommendations for new onset AFib with RVR. She was started on p.o. metoprolol and Cardizem drip was weaned off. Interval history: Patient remains in sinus rhythm with heart rate in 80s to 90s range. She reports an episode of dizziness when she went to use the bathroom. She feels a slight headache this morning. No chest pain, palpitations, or shortness of breath. Review of Systems Review of Systems: A complete review of systems was performed and pertinent positives are reported in the HPI. Exam Narrative: General: Alert oriented x3, no acute distress Neck: Supple, no JVD Chest: Bilaterally clear to auscultation, no rales or rhonchi Cardiac: S1, S2 +, regular rate, regular rhythm, no murmurs or rubs Extremities: No pedal edema, no skin rash Neurologic: Alert and oriented x3, no focal neurological deficits Objective Data Vital Signs Vital Signs: Vital Signs - 24 hr 02/12/25 10:00 02/12/25 10:27 02/12/25 11:15 Temperature Pulse Rate 85 88 90 Respiratory Rate Blood Pressure 137/85 Pulse Oximetry 100 02/12/25 11:41 02/12/25 11:43 02/12/25 12:00 Temperature 36.7 C Pulse Rate 92 85 82 Respiratory Rate 22 H Blood Pressure 137/85 137/85 Pulse Oximetry 98 02/12/25 13:20 02/12/25 14:00 02/12/25 14:46 Temperature Pulse Rate 99 85 89 Respiratory Rate Blood Pressure 141/89 H Pulse Oximetry 02/12/25 14:59 02/12/25 16:00 02/12/25 16:00 Temperature 36.7 C Pulse Rate 80 90 86 Respiratory Rate 18 Blood Pressure 122/74 Pulse Oximetry 98 02/12/25 16:49 02/12/25 18:00 02/12/25 20:00 Temperature 36.8 C Pulse Rate 101 H 91 86 Respiratory Rate 18 Blood Pressure 120/79 Pulse Oximetry 100 02/12/25 20:00 02/12/25 22:00 02/12/25 23:03 Temperature 36.9 C Pulse Rate 90 90 96 Respiratory Rate 18 Blood Pressure 137/95 H Pulse Oximetry 99 02/13/25 00:00 02/13/25 00:06 02/13/25 02:00 Temperature Pulse Rate 92 103 H 91 Respiratory Rate Blood Pressure Pulse Oximetry 02/13/25 03:44 02/13/25 04:00 02/13/25 06:00 Temperature 36.9 C Pulse Rate 92 89 92 Respiratory Rate 18 Blood Pressure 119/77 Pulse Oximetry 100 02/13/25 06:09 02/13/25 08:00 Temperature 36.8 C Pulse Rate 93 84 Respiratory Rate 20 Blood Pressure 117/70 Pulse Oximetry 99 Intake/Output Intake/Output: Intake & Output 02/10/25 02/11/25 02/12/25 02/13/25 23:59 23:59 23:59 23:59 Intake Total 1113.7 1532.7 Output Total 100 300 Balance 1113.7 1432.7 -300 Meds/Results Medications: Active Medications Generic Name Dose Route Start Last Admin Trade Name Freq PRN Reason Stop Dose Admin Enoxaparin Sodium 100 mg 02/12/25 09:00 02/13/25 08:44 Enoxaparin 100 Mg/Ml Syringe SUB-Q 100 mg Q12HR MAYANK Administration Enoxaparin Sodium 30 mg 02/12/25 09:00 02/13/25 08:44 Enoxaparin 30 Mg/0.3 Ml Syringe SUB-Q 30 mg Q12HR MAYANK Administration Melatonin 3 mg 02/12/25 21:00 02/12/25 20:43 Melatonin 3 Mg Tablet PO 3 mg HS MAYANK Administration Metoprolol Tartrate 25 mg 02/12/25 12:00 02/13/25 06:09 Metoprolol Tartrate 25 Mg Tablet PO 25 mg Q6HR MAYANK Administration Radiology Results: ITS Impressions Chest X-Ray 02/11/25 18:52 IMPRESSION: No acute pulmonary findings. Chest/Abdomen/Pelvis CTA 02/11/25 20:00 IMPRESSION: 1. [No thoracic or abdominal aortic aneurysm is evident. There is no dissection.] 2. [No acute abnormality is noted in the chest, abdomen and pelvis.] 3. Infiltrative fat within the cecum, ascending and transverse colon wall suggestive of chronic inflammatory colitis. All CT scans at this facility are performed using low dose modulation techniques as appropriate to perform exam including the following: automated exposure control; use of iterative reconstruction technique; adjustment of the mA and/or kV according to patient size (this includes techniques or standardized protocols for targeted exams where dose is matched to indication/reason for exam). Labs Labs: Laboratory Results - last 24 hr 02/13/25 04:26 WBC 5.6 RBC 4.73 Hgb 9.0 L Hct 33.4 L MCV 70.6 L MCH 19.0 L MCHC 26.9 L RDW 21.1 H Plt Count 276 MPV 8.8 Immature Gran % (Auto) 0.4 Neut % (Auto) 68.2 Lymph % (Auto) 22.0 [place] % (Auto) 8.2 Eos % (Auto) 0.7 Baso % (Auto) 0.5 Lymph # (Auto) 1.23 [place] # (Auto) 0.5 Eos # (Auto) 0.0 Baso # (Auto) 0.0 Abs Immat Gran (auto) 0.02 Absolute Neuts (auto) 3.8 Absolute Nucleated RBC 0.000 Band Neutrophils % Not Reportable Nucleated RBC % 0.0 Platelet Estimate Adequate Hypochromasia 2+ Target Cells 1+ Ovalocytes 1+ Schistocytes None seen Sodium 133 L Potassium 3.9 Chloride 100 Carbon Dioxide 29 Anion Gap 4 BUN 10 Creatinine 0.54 L Estim Creat Clear Calc 142 Estimated GFR > 60 Glucose 119 H Calcium 9.0 Magnesium 1.7
--- NOTE | 2025-02-13 12:44 | P.PNIM_ITS ---
Assessment and Plan Assessment and Plan (1) Atrial fibrillation with RVR: Code(s): I48.91 - Unspecified atrial fibrillation Status: Acute Plan 49-year-old female with PMH asthma, obesity class 3, iron deficiency anemia, hypertension presents [facility] ER on 02/11/2025 with 3 days of nausea, lack of appetite, dizziness, shortness of breath. She reports having a history of preeclampsia and at that time she had an irregular heart rate but no diagnosis or management thereafter. CTA chest abdomen pelvis negative for PE, does reveal infiltrate of fat within the cecum, ascending and transverse colon wall suggestive of chronic inflammatory colitis. 1. AFib with RVR: Continue with tele monitoring Appreciate cardiology help Echocardiogram reviewed Off Cardizem drip Currently on metoprolol Will switch the dose to 50 mg b.i.d. Lovenox has been switched to Eliquis Event monitor upon discharge Will stop losartan Supplement magnesium 2. DVT prophylaxis: Eliquis 3. Headache: Will start on p.r.n. Tylenol f Meclizine for dizziness 3. Code status: Full 4. Disposition: Will transfer out of IMU, anticipate discharge within next 24 hours Subjective Date/time seen: 02/13/25 12:44 Interval history: Having headache, feeling dizzy Heart rate better controlled Review of Systems Review of Systems: All systems reviewed & are unremarkable except as noted in HPI and below Exam Const: General: comfortable and no acute distress Other: A&O x4 HENMT: Mouth: Yes moist mucous membranes Neck: Neck: supple Resp: Effort & Inspection: normal respiratory effort Auscultation: clear to auscultation bilaterally Cardio: Rhythm: abnormal rhythm GI: Inspection: non-distended GI Palp: Yes Soft to palpation Auscultation: normal bowel sounds : General: Yes bladder normal to palpation Neuro: Motor exam (neuro): 5/5 motor strength present throughout Extrem: General: no edema Objective Data Vital Signs Vital Signs: Vital Signs - 24 hr 02/12/25 13:20 02/12/25 14:00 02/12/25 14:46 Temperature Pulse Rate 99 85 89 Respiratory Rate Blood Pressure 141/89 H Pulse Oximetry 02/12/25 14:59 02/12/25 16:00 02/12/25 16:00 Temperature 98.1 F Pulse Rate 80 90 86 Respiratory Rate 18 Blood Pressure 122/74 Pulse Oximetry 98 02/12/25 16:49 02/12/25 18:00 02/12/25 20:00 Temperature 98.3 F Pulse Rate 101 H 91 86 Respiratory Rate 18 Blood Pressure 120/79 Pulse Oximetry 100 02/12/25 20:00 02/12/25 22:00 02/12/25 23:03 Temperature 98.5 F Pulse Rate 90 90 96 Respiratory Rate 18 Blood Pressure 137/95 H Pulse Oximetry 99 02/13/25 00:00 02/13/25 00:06 02/13/25 02:00 Temperature Pulse Rate 92 103 H 91 Respiratory Rate Blood Pressure Pulse Oximetry 02/13/25 03:44 02/13/25 04:00 02/13/25 06:00 Temperature 98.5 F Pulse Rate 92 89 92 Respiratory Rate 18 Blood Pressure 119/77 Pulse Oximetry 100 02/13/25 06:09 02/13/25 08:00 02/13/25 08:00 Temperature 98.2 F Pulse Rate 93 84 84 Respiratory Rate 20 Blood Pressure 117/70 Pulse Oximetry 99 02/13/25 10:00 02/13/25 12:00 02/13/25 12:02 Temperature 98.0 F Pulse Rate 82 97 96 Respiratory Rate 24 H Blood Pressure 124/73 Pulse Oximetry 98 Intake/Output Intake/Output: Intake & Output 02/10/25 02/11/25 02/12/25 02/13/25 23:59 23:59 23:59 23:59 Intake Total 1113.7 1532.7 Output Total 100 300 Balance 1113.7 1432.7 -300 Meds/Results Medications: Active Medications Generic Name Dose Route Start Last Admin Trade Name Freq PRN Reason Stop Dose Admin Acetaminophen 500 mg 02/13/25 12:36 Acetaminophen 500 Mg Tablet PO Q6H PRN Mild Pain (1-3) or Fever Apixaban 5 mg 02/13/25 21:00 Apixaban 5 Mg Tablet PO Q12HR MAYANK Melatonin 3 mg 02/12/25 21:00 02/12/25 20:43 Melatonin 3 Mg Tablet PO 3 mg HS MAYANK Administration Metoprolol Tartrate 50 mg 02/13/25 21:00 Metoprolol Tartrate 50 Mg Tab PO Q12HR MAYANK Radiology Results: ITS Impressions Chest X-Ray 02/11/25 18:52 IMPRESSION: No acute pulmonary findings. Chest/Abdomen/Pelvis CTA 02/11/25 20:00 IMPRESSION: 1. [No thoracic or abdominal aortic aneurysm is evident. There is no dissection.] 2. [No acute abnormality is noted in the chest, abdomen and pelvis.] 3. Infiltrative fat within the cecum, ascending and transverse colon wall suggestive of chronic inflammatory colitis. All CT scans at this facility are performed using low dose modulation techniques as appropriate to perform exam including the following: automated exposure control; use of iterative reconstruction technique; adjustment of the mA and/or kV according to patient size (this includes techniques or standardized protocols for targeted exams where dose is matched to indication/reason for exam). Labs Labs: Laboratory Results - last 24 hr 02/13/25 04:26 WBC 5.6 RBC 4.73 Hgb 9.0 L Hct 33.4 L MCV 70.6 L MCH 19.0 L MCHC 26.9 L RDW 21.1 H Plt Count 276 MPV 8.8 Immature Gran % (Auto) 0.4 Neut % (Auto) 68.2 Lymph % (Auto) 22.0 [place] % (Auto) 8.2 Eos % (Auto) 0.7 Baso % (Auto) 0.5 Lymph # (Auto) 1.23 [place] # (Auto) 0.5 Eos # (Auto) 0.0 Baso # (Auto) 0.0 Abs Immat Gran (auto) 0.02 Absolute Neuts (auto) 3.8 Absolute Nucleated RBC 0.000 Band Neutrophils % Not Reportable Nucleated RBC % 0.0 Platelet Estimate Adequate Hypochromasia 2+ Target Cells 1+ Ovalocytes 1+ Schistocytes None seen Sodium 133 L Potassium 3.9 Chloride 100 Carbon Dioxide 29 Anion Gap 4 BUN 10 Creatinine 0.54 L Estim Creat Clear Calc 142 Estimated GFR > 60 Glucose 119 H Calcium 9.0 Magnesium 1.7 Quality VTE Prophylaxis VTE prophylaxis: pharmacologic ordered
[2025-02-13] MEDS: ACETAMINOPHEN 500 MG TABLET PO ×2 (13:04→19:22)
[2025-02-13] MEDS: MAGNESIUM SULF 1 GM/D5W 100 ML 1 GM/100 ML BAG IVPB (14:18)
--- NOTE | 2025-02-13 17:31 | PC.NURSE ---
This patient, Alisa Kiran, was received from IMU on 02/13/25 at 1731. Patient/family oriented to unit policies and routines
[2025-02-13] MEDS: MELATONIN 3 MG TABLET PO (20:41)
[2025-02-13] MEDS: METOPROLOL TARTRATE 50 MG TAB PO (20:41)
[2025-02-13] MEDS: APIXABAN 5 MG TABLET PO (20:41)
[2025-02-14 05:29] LABS: Anion Gap 2 mmol/L (4-12); Blood Urea Nitrogen 11 mg/dL (7-17); Calcium 8.8 mg/dL (8.4-10.2); Carbon Dioxide 28 mmol/L (22-30); Chloride 101 mmol/L (98-107); Estimated CRCL calculation 142 ml/min; Estimated Glomerular Filt Rate > 60; Glucose 107 mg/dL (65-110); Magnesium 1.6 mg/dL (1.6-2.3); Potassium 3.8 mmol/L (3.4-5.0); Sodium 131 mmol/L (137-145)
[2025-02-14 06:41] VITALS: BP 143/90; PULSE 95; RESP 18; TEMP 36.1; O2SAT 93
[2025-02-14 08:00] VITALS: PULSE 101
[2025-02-14] MEDS: APIXABAN 5 MG TABLET PO (09:43)
[2025-02-14] MEDS: MAGNESIUM SULF 2 GM/WATER 50ML 2 GM/50 ML BAG IVPB (09:44)
[2025-02-14 10:55] VITALS: PULSE 101
[2025-02-14] MEDS: METOPROLOL TARTRATE 50 MG TAB PO (10:55)
--- NOTE | 2025-02-14 11:36 | PM.DS ---
DS: Admitting Diagnosis Discharge Date 02/14/25 Admitting Diagnosis Afibb with RVR DS: Discharge Diagnosis Discharge Diagnosis (1) Atrial fibrillation with RVR: Code(s): I48.91 - Unspecified atrial fibrillation Status: Acute DS: Summary Hospital Course Reason for hospitalization: Afibb with RVR Hospital Course: 49-year-old female with PMH asthma, obesity class 3, iron deficiency anemia, hypertension presents [facility] ER on 02/11/2025 with 3 days of nausea, lack of appetite, dizziness, shortness of breath. She reports having a history of preeclampsia and at that time she had an irregular heart rate but no diagnosis or management thereafter. CTA chest abdomen pelvis negative for PE, does reveal infiltrate of fat within the cecum, ascending and transverse colon wall suggestive of chronic inflammatory colitis. Patient was admitted on telemetry. Patient was started on Cardizem drip. Cardiology was consulted. Was started on metoprolol, eventually Cardizem drip was weaned off. For anticoagulation she was started on Lovenox, switched to Eliquis upon discharge. Losartan was stopped. She was discharged on event monitor. Patient will follow-up with cardiology as an outpatient. Echocardiogram was done during this admission as well. The patient is being discharged home in stable condition. Status at Discharge Functional status at discharge: independent ambulation Overall status at discharge: patient is back to baseline Time Spent with Patient Time attestation: Total time spent providing and/or coordinating discharge services: 32 minute Exam Const: General: comfortable and no acute distress Other: A&O x4 HENMT: Mouth: Yes moist mucous membranes Neck: Neck: supple Resp: Effort & Inspection: normal respiratory effort Auscultation: clear to auscultation bilaterally Cardio: Rhythm: abnormal rhythm GI: Inspection: non-distended GI Palp: Yes Soft to palpation Auscultation: normal bowel sounds : General: Yes bladder normal to palpation Neuro: Motor exam (neuro): 5/5 motor strength present throughout Extrem: General: no edema DS: Data Data Completed and Pending Labs on day of discharge: Labs from last 24 hours 02/14/25 04:45 Sodium 131 L Potassium 3.8 Chloride 101 Carbon Dioxide 28 Anion Gap 2 L BUN 11 Creatinine 0.55 L Estim Creat Clear Calc 142 Estimated GFR > 60 Glucose 107 Calcium 8.8 Magnesium 1.6 Discharge Plan Discharge Attending physician on discharge: Christina Pennington Consulting providers: Mónica Mares Discharging Clinician: Christina Pennington Anticipated Discharge Date/Time: 02/14/25 11:33 Patient Disposition: Home Activity: as tolerated Diet: heart healthy Patient Instructions: Antibiotic Form, A-fib (Atrial Fibrillation) (GEN), Safe Use of Anticoagulants (GEN), Blood Thinners (GEN) Patient Language: Zimbabwean Stand Alone Forms: General Discharge Information Follow-up/Referrals: Mónica Mares DO [Physician, Cardiology] - 2 Weeks Alyssia,MD Ольга [Primary Care Provider] - 2 Weeks Discharge Medications: New Eliquis 5 mg Tablet 5 mg PO Q12HR Qty: 60 1RF metoprolol tartrate 50 mg Tablet 50 mg PO Q12HR Qty: 60 1RF Continued (DME) Ankle Support Misc See Rx Instructions .Route Qty: 1 0RF Patient Comments: Sprained left ankle. Rx Instructions: As directed ondansetron HCl 4 mg/5 mL solution 4 mg PO Q8H PRN (Reason: nausea and vomiting) Qty: 50 0RF lidocaine 5 % adhesive patch,medicated 1 patch topical DAILY Qty: 30 0RF Rx Instructions: leave on most painful area for up to 12 hrs ipratropium bromide 42 mcg (0.06 %) spray,non-aerosol 2 spray intranasal QID 7 Days Qty: 15 0RF Rx Instructions: administer into each nostril Discontinued albuterol sulfate 90 mcg/actuation Hfa Aerosol Inhaler 2 puff INHALATION QID PRN (Reason: Wheezing) ciprofloxacin [Cipro] 500 mg/5 mL suspension,microcapsule recon 500 mg PO Q12H Qty: 70 0RF benzonatate 100 mg capsule 200 mg PO TID PRN (Reason: cough) Qty: 40 0RF losartan 50 mg tablet 50 mg PO DAILY cephalexin 500 mg capsule 500 mg PO Q8H 7 Days Qty: 21 0RF Date of admission: 02/11/25 22:15 Primary Care Provider: Alyssia,Ольга Admitting Provider: Afshan Hong Attending physician on admission: Afshan Hong Condition: Improved
--- OUTSIDE RECORDS SUMMARY | 2025-02-18 06:17 | XMS_ITS | Data Portability ---
Author Organization [facility] SI (11) Address [address] [facility] [address] [place] [address] Care Team Providers Care Social Insurance Administrator Name Role Phone NEELIMA ALCANTARA Referring Provider [phone] Assessment No assessment recorded. Plan of Treatment [...] Time 09/29/2017 Sleep Study completed Lorenzo Chapman [facility] 10/03/19 18 11:10:37 Imaging Results None recorded. [...] Updated DateTime 09/29/2017 165.1 cm 54.9 kg/m2 670826.48 g Lorenzo Chapman [place] [facility] 10/02/2017 11:10:00 Social History None recorded. Functional [...] ICD10 Code Diagnosis IMO Codes Diagnosis Note [id number] [facility] [place], [facility] [phone]) [phone] [place] [address] 09/29/2017 21:01:08 10/02/2017 11:06:53 Obstructive sleep apnea of adult [id number] 103 G47.33 Health Concerns Section Related Observation LastModified by Organization Detai ls LastModified Time None Recorded Concern Status LastModified by Organization Details LastModified Time None Recorded Advance Directives Directive None Recorded Payers Insurance Date Sequence Insurance Name Policy Number Policy Calderon Covered Member ID Calderon Member ID Guarantor Name 10/02/2017 [facility] ATTN: MAIRA Kiran [id number] Alisa Kiran 11/07/2017 [facility] [id number] Alisa Kiran [id number] Alisa Kiran OBGyn Episode No OBEpisode recorded.
--- OUTSIDE RECORDS SUMMARY | 2025-02-18 06:17 | XMS_ITS | Clinical Summary ---
Author Organization [employer] [facility] Address [address] [place] [address] Care Team Providers Care Tomato Grader Name Role Phone Unavailable Primary Care Provider [...]
--- OUTSIDE RECORDS SUMMARY | 2025-02-18 06:17 | XMS_ITS | Clinical Summary ---
Author Organization [facility] Address [place] [address] Care Team Providers Care Rubber Goods Tester Water Name Role Phone Ольга Cade MD Primary Care Provider [phone] Allergies Active Allergy Reactions Criticality Noted Date [...] drink = 0.6 oz pur e alcohol) [facility] Utilities Answer Date Recorded In the past 12 months has e [employer] logo, gas, oil, or water [employer] threatened to shut off services in your [...] in the past 12 m [facility], were you homeless or living in a detention (including now)? No 07/28/2023 Comments No Sex [...] 9:59 AM 07/29/2023 7:34 PM Care Teams Rubber Goods Tester Water Relationship Specialty Start Date End Date Ольга Cade MD [address] [facility] [address] [place] [address] PCP - General INTERNAL MEDICINE 07/29/23
--- OUTSIDE RECORDS SUMMARY | 2025-02-18 06:18 | XMS_ITS | Clinical Summary ---
Author Organization [facility] Address [address] [facility] [place] [address] Care Team Providers Care Distribution Estimator Name Role Phone Qiana Willard RN Unavailable [phone] Source Comments [facility],non-owned Affiliates and Associated Physician Practices is amultiple site organization consisting of ambulatory clinics and hospital sitesin [place], [place], [place] and [place]. This disclosure is being madepursuant to the Care Everywhere program and may not contain all information available regarding this patient. 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 Not on file Not on file Last Filed Vital Signs Vital Sign Reading Time Taken Comments Blood Pressure 123/71 04/27/2016 6:07 PM SHOPPER Pulse 105 04/27/2016 6:07 PM SHOPPER Temperature 37.3 C (99.1 F) 04/27/2016 6:07 PM SHOPPER Respiratory Rate 20 04/27/2016 5:12 PM SHOPPER Oxygen Saturation 95% 04/27/2016 6:07 PM SHOPPER Inhaled Oxygen Concentration - - Weight 154.2 kg (340 lb) 04/27/2016 11:41 AM SHOPPER Height 165.1 cm (5' 5) 04/27/2016 11:41 AM SHOPPER Body Mass Index 56.58 04/27/2016 11:41 AM SHOPPER Plan of Treatment Health Maintenance Due Date [...] of 3 - 19+ 3-dose series) 1993 PAP SMEAR 07/18/1995 Cervical Cancer Screening 2004 PAP with HPV 2004 DEPRESSION SCREENING 03/13/2024 PNEUMOCOCCAL VACCINE 50+ (1 of 1 - PCV) 2024 ZOSTER VACCINE (1 of 2) 2024 COVID-19 VACCINE (1 - 2024-2 6 season) 2024 INFLUENZA VACCINE (#1) 2024 HIB [...] age to complete this topic [place] [address] [place] [address] [place] [address] [place] [address] Advance Directives * Full Code (Latest Code Status on File) Date Activated Date Inactivated Comments 09/07/2013 1:01 AM 09/09/2013 3:59 PM * Full Code Date Activated Date Inactivated Comments 09/06/2013 3:52 AM 09/07/2013 1:01 AM Care Teams Distribution Estimator Relationship Specialty Start Date End Date Qiana Willard RN Esol Instructor 09/06/13
--- OUTSIDE RECORDS SUMMARY | 2025-02-18 06:18 | XMS_ITS | Encounter Summary ---
Author Organization [facility] Healthcare Address [address] [place] [address] Care Team Providers Care Sales Specialist Name Role Phone Gerald Fregoso MD Unavailable [phone] Ольга Cade MD Primary Care Provider [phone] Encounter Details Date Type Department Care Team (Late st Contact Info) Description 02/17/2025 Telephone [facility] Medical Group Cardiology [address] [facility] [address] [place] [address] Dianne Gamez NP [address] [place] [address] Social History Tobacco Use Types Packs/Day Years Used Date Smoking Tobacco: Never Smokeless Tobacco: Never Alcohol Use Standard Drinks/Week Comments No 0 (1 standard drink = 0.6 oz pur e alcohol) Comments Unknown Sex and Gender Information Value Date Recorded Sex Assigned at Not on file Legal Sex Female 8:01 AM BENEFITS CONSULTING ANALYST Gender Identity Not on file Sexual Orientation Not on file documented as of this encounter Miscellaneous Notes * Telephone Encounter - Lori Barrera MA - 02/17/2025 9:32 AM CST Printed progress note with order for monitor by Dr. Nelson. front desk person will enter order and call patient to schedule. FITS CONSULTING ANALYST * Telephone Encounter - Yanique Pike - 02/17/2025 8:36 AM CST Pt states she was at and discharged on Monday. States she was instructed to come into our officetoday to get a monitor on. I checked fax com, there was no order. I asked [facility] front end developer designer if they had an order for the monitor and they said no. I informed the pt that we did not receive an order for us to schedule her for a monitor. I advised her to have them re send us the order. She repeated that they told her to come here and that we have the order and so on. She stated she cannot wait to file a complaint on our office because we are so unorganized. I apologized and told her we will look into this and call her back. Contact: FITS CONSULTING ANALYST documented in this encounter Plan of Treatment Upcoming Encounters Date Type Department Care Team (Late st Contact Info) Description 02/18/2025 12:00 PM BENEFITS CONSULTING ANALYST Ancillary Procedure [facility] Medical Group Cardiology [address] [place] [address] documented as of this encounter Visit Diagnoses Not on filedocumented in this encounter Care Teams Sales Specialist Relationship Specialty Start Date End Date Ольга Cade MD [address] [facility] [address] [place] [address] PCP - General Internal Medicine 08/08/19 Gerald Fregoso MD Medical Oncologist/Applications Engineer Manufacturing Hematology and Oncology 10/24/17 documented as of this encounter
--- OUTSIDE RECORDS SUMMARY | 2025-02-18 12:00 | XMS_ITS | Encounter Summary ---
Author Organization [facility] Healthcare Address [address] [place] [address] Care Team Providers Care Postal Worker Name Role Phone Gerald Fregoso MD Unavailable [phone] Ольга Cade MD Primary Care Provider [phone] Reason for Visit * Cardiology (Routine) - Pending Review Specialty Diagnoses / Procedures Referred By Contac t Referred To Contact Diagnoses Atrial fibrillation, unspecified type (HCC) Procedures [facility] Mobile Cardiac Telemetry Event Monitor Amy Nelson MD [address] [address] Phone: tel: fax: [facility] Medical Group Cardiology [address] [address] Phone: tel: fax: Referral ID Status Reason Start Date Expiration Date V isits Requested Visits Authorized [id number] Pending Review 02/17/2025 03/19/2026 1 1 Encounter Details Date Type Department Care Team (Late st Contact Info) Description 02/18/2025 12:00 PM HAND ZIPPER TRIMMER Ancillary Procedure [facility] Medical [facility] Cardiology [address] [facility] [address] [address] Social History Tobacco Use Types Packs/Day Years Used Date Smoking Tobacco: Never Smokeless Tobacco: Never Alcohol Use Standard Drinks/Week Comments No 0 (1 standard drink = 0.6 oz pur e alcohol) Comments Unknown Sex and Gender Information Value Date Recorded Sex Assigned at Not on file Legal Sex Female 8:01 AM HAND ZIPPER TRIMMER Gender Identity Not on file Sexual Orientation Not on file documented as of this encounter Plan of Treatment Scheduled Orders Name Type Priority Associated Diagnoses Orde r Schedule [facility] Mobile Cardiac Telemetry Event Monitor Cardiac Services Routine Atrial fibrillation, unspecified type (HCC) Expected: 02/17/2025, Expires: 02/17/2026 documented as of this encounter Visit Diagnoses Not on filedocumented in this encounter Care Teams Postal Worker Relationship Specialty Start Date End Date Ольга Cade MD [address] [facility] [address] [place] [address] PCP - General Internal Medicine 08/08/19 Gerald Fregoso MD Medical Oncologist/Rate Reviewer Hematology and Oncology 10/24/17 documented as of this encounter
== END 2025-02-14 12:42 | disposition home or self-care (01) ==
LOC: ANHED 21:40 → ANHIMU 02-12 04:15 → ANH2MED 02-14 11:34 → ANHIMU 02-18 06:16
PROVIDERS: Admitting Provider General Practice; Emergency Provider Physician Assistant; PCP Internal Medicine; Visit Provider Internal Medicine
DX: I48.91 Unspecified atrial fibrillation (principal); R94.31 Abnormal electrocardiogram [ECG] [EKG]; I10 Essential (primary) hypertension; E87.8 Other disorders of electrolyte and fluid balance, not elsewhere classified; J45.909 Unspecified asthma, uncomplicated; D50.9 Iron deficiency anemia, unspecified; E66.813 Obesity, class 3; Z68.42 Body mass index [BMI] 45.0-49.9, adult; Z79.2 Long term (current) use of antibiotics; Z98.84 Bariatric surgery status; Z90.49 Acquired absence of other specified parts of digestive tract; Z83.3 Family history of diabetes mellitus; Z82.49 Family history of ischemic heart disease and other diseases of the circulatory system; Z83.6 Family history of other diseases of the respiratory system; Z83.430 Family history of elevated lipoprotein(a)
CPT/HCPCS: 36415; 71045; 71275; 74174; 80048; 80053; 83690; 83735; 84443; 84484; 85025; 85027; 85610; 85730; 93005; 96361; 96365; 96366; 96368; 96372; 96375; 96376; 99285; A9270; C8929; G0378; J1163; J1650; J2405; J3475; J7030; Q9957; Q9967